=== PATIENT | male | born 1960 | race African-American/Black ===

== ENCOUNTER 2018-04-01 10:09 | Emergency (ER) | payer OTHER ==
[2018-04-01 10:19] VITALS: BP 168/99; PULSE 82; TEMP 98.1; BMI 27.6
[2018-04-01] MEDS ORDERED: CYCLOBENZAPRINE HCL 10 MG TABLET (FP) PO ONE (11:25)
[2018-04-01] MEDS ORDERED: ACETAMINOPHEN 325 MG TABLET (FP) PO ONE (11:25)
--- NOTE | 2018-04-01 11:25 | PDOC ---
History of Present Illness - General Chief Complaint: Pain, Acute Stated Complaint: NECK PAIN Time Seen by Provider: 04/01/18 10:43 History Source: Patient Exam Limitations: No Limitations - History of Present Illness Initial Comments: 04/01/18 11:11 Patient is a 58-year-old male with past medical history of stroke, on blood thinners, who presents to the ER today for neck pain starting yesterday. Patient believes that he slept wrong and now his neck hurts. He states it hurts to touch on either side. She is tried taking Tylenol with minimal relief. Denies fevers, chills, dizziness, lightheadedness, nausea, vomiting and diarrhea. Past History - Travel Traveled outside of the country in the last 30 days: No Close contact w/someone who was outside of country & ill: No - Past Medical History Allergies/Adverse Reactions: Allergies Allergy/AdvReac Type Severity Reaction Status Date / Time No Known Allergies Allergy Verified 04/01/18 11:04 Home Medications: Ambulatory Orders Losartan Potassium 100 mg PO DAILY 06/20/13 Acetaminophen [Tylenol] 650 mg PO Q6H #30 tablet 04/01/18 Aspirin [ASA -] 81 mg PO DAILY 04/01/18 Clopidogrel Bisulfate [Plavix] 75 mg PO DAILY 04/01/18 Cyclobenzaprine HCl [Flexeril -] 10 mg PO HS #10 tablet 04/01/18 Lidocaine 5% Patch [Lidoderm -] 1 patch TP DAILY #7 patch 04/01/18 Lisinopril [Zestril] 40 mg PO DAILY 04/01/18 Nifedipine ER [Procardia Xl -] 90 mg PO DAILY 04/01/18 COPD: No HTN: Yes - Surgical History Cholecystectomy: No - Immunization History Immunization Up to Date: Yes (FLU ) - Suicide/Smoking/Psychosocial Hx Smoking History: Never smoked Have you smoked in the past 12 months: No Information on smoking cessation initiated: No Hx Alcohol Use: No Drug/Substance Use Hx: No Substance Use Type: None Review of Systems - Review of Systems Able to Perform ROS?: Yes Comments:: 04/01/18 11:40 CONSTITUTIONAL: Absent: fever, chills, diaphoresis, generalized weakness, malaise, loss of appetite HEENT: Absent: rhinorrhea, nasal congestion, throat pain, throat swelling, difficulty swallowing, mouth swelling, ear pain, eye pain, visual Changes CARDIOVASCULAR: Absent: chest pain, loss of consciousness, palpitations, irregular heart rate, peripheral edema RESPIRATORY: Absent: cough, shortness of breath, dyspnea with exertion, orthopnea, wheezing, stridor, hemoptysis GASTROINTESTINAL: Absent: abdominal pain, abdominal distension, nausea, vomiting, diarrhea, constipation, melena, hematochezia GENITOURINARY: Absent: dysuria, frequency, urgency, hesitancy, hematuria, flank pain, genital pain MUSCULOSKELETAL: Present: neck pain Absent: myalgia, arthralgia, joint swelling SKIN: Absent: rash, itching, pallor HEMATOLOGIC/IMMUNOLOGIC: Absent: easy bleeding, easy bruising, lymphadenopathy, frequent infections ENDOCRINE: Absent: unexplained weight gain, unexplained weight loss, heat intolerance, cold intolerance NEUROLOGIC: Absent: headache, focal weakness or paresthesias, dizziness, unsteady gait, seizure, mental status changes, bladder or bowel incontinence PSYCHIATRIC: Absent: anxiety, depression, suicidal or homicidal ideation, hallucinations. Is the patient limited Telugu proficient: No *Physical Exam - Vital Signs Last Vital Signs Temp Pulse Resp BP Pulse Ox 98.1 F 82 16 168/99 97 04/01/18 10:16 04/01/18 10:16 04/01/18 10:16 04/01/18 10:16 04/01/18 10:16 - Physical Exam Comments: 04/01/18 11:40 GENERAL: Well developed, well nourished. Awake and alert. No acute distress. HEENT: Normocephalic, atraumatic. PERRLA, EOMI. No conjunctival pallor. Sclera are non- icteric. Moist mucous membranes. Oropharynx is clear. NECK: Supple. Full ROM. No JVD. Carotid pulses 2+ and symmetric, without bruits. No thyromegaly. No lymphadenopathy. MUSCULOSKELETAL TTP of the trapezius muscles b/l. No midline tenderness. Decreased ROM of the neck d/t pain. Normal range of motion at all other joints. No bony deformities or tenderness. No CVA tenderness. EXTREMITIES: No cyanosis. No clubbing. No edema. No calf tenderness. SKIN: Warm and dry. Normal capillary refill. No rashes. No jaundice. NEUROLOGICAL: Alert, awake, appropriate. Cranial nerves 2-12 intact. No deficits to light touch and temperature in face, upper extremities and lower extremities. No motor deficits in the in face, upper extremities and lower extremities. Normoreflexic in the upper and lower extremities. Normal speech. Toes are down- going bilaterally. Moderate Sedation - Procedure Monitoring Vital Signs: Procedure Monitoring Vital Signs Temperature 98.1 F 04/01/18 10:16 Pulse Rate 82 04/01/18 10:16 Respiratory Rate 16 04/01/18 10:16 Blood Pressure 168/99 04/01/18 10:16 O2 Sat by Pulse Oximetry (%) 97 04/01/18 10:16 Medical Decision Making - Medical Decision Making 04/01/17 11:13 Patient is a 58 y/o M with past medical history of stroke on blood thinners, who presents to the ER for one day of neck pain. On exam patient with palpable spasms to the trapezius muscles bilaterally. Patient able to rotate his neck 45 in either direction. Pt is neurologically intact with no deficits. No trauma, patient able to touch his chin to his chest without pain. No numbness and tingling in the extremities. Suspect muscle spasm of the neck. We'll treat with Tylenol and Flexeril and lidocaine patches. Discharge home I discussed the physical exam findings, ancillary test results and final diagnoses with the patient. I answered all of the patient's questions. The patient was satisfied with the care received and felt comfortable with the discharge plan and treatment plan. The Patient agrees to follow up with the primary care physician/specialist within 24-72 hours. Return precautions were given. *DC/Admit/Observation/Transfer Diagnosis at time of Disposition: Neck pain - Discharge Dispostion Disposition: HOME Condition at time of disposition: Stable Decision to Admit order: No - Prescriptions Prescriptions: Acetaminophen [Tylenol] 650 mg PO Q6H #30 tablet Cyclobenzaprine HCl [Flexeril -] 10 mg PO HS #10 tablet Lidocaine 5% Patch [Lidoderm -] 1 patch TP DAILY #7 patch - Referrals Referrals: Turner Gamble MD, [Primary Care Provider] - - Patient Instructions Printed Discharge Instructions: DI for Neck Pain Additional Instructions: You have neck pain most likely due to a spasm Please take the Tylenol 650mg every 4 hours for pain You may take the Flexeril every 8 hours today for the pain. Tomorrow take the medication only at night. Do not drive after taking this medication as it may make you sleepy You may use the lidocaine patches once a day to the neck to help with the pain Warm water compresses may help the pain as well Follow up with your primary care doctor this week Return to the ED for worsening pain, numbness and tingling to the arms or if you have any changes in your symptoms - Post Discharge Activity Forms/Work/School Notes: Back to Work
[2018-04-01] MEDS ORDERED: LIDOCAINE 5% TOPICAL PATCH TP ONE (11:26)
[2018-04-01] MEDS ORDERED: CYCLOBENZAPRINE HCL 10 MG TABLET (FP) ONE (11:30)
[2018-04-01] MEDS ORDERED: LIDOCAINE 5% TOPICAL PATCH ONE (11:30)
[2018-04-01] MEDS ORDERED: ACETAMINOPHEN 325 MG TABLET (FP) ONE (11:30)
[2018-04-01] MEDS ORDERED: LIDOCAINE PATCH REMOVAL MC SCH (22:00)
== END 2018-04-01 11:54 | disposition home or self-care (01) ==
LOC: JERFT 10:09
DX: M54.2 Cervicalgia (principal); I10 Essential (primary) hypertension
CPT/HCPCS: 99281-25

== ENCOUNTER 2018-06-10 15:13 | Inpatient (IN) | payer OTHER ==
--- NOTE | 2018-06-10 15:19 | PDOC ---
Rapid Medical Evaluation Time Seen by Provider: 06/10/18 15:15 Medical Evaluation: Allergies Allergy/AdvReac Type Severity Reaction Status Date / Time No Known Allergies Allergy Verified 04/01/18 11:04 06/10/18 15:15 Pt presents for evaluation of his hypertension. He states he was sent by his PCP for admission for evaluation of his pressure. Endorses memory issues. Denies fevers, chills, headache, n/v/d, lightheadedness, dizziness, shortness of breath, and difficulty breathing Exam; NAD, ambulatory Orders: Labs, EKG, urine, IV insert Pt to proceed to the ED for further evaluation Discharge Disposition - Diagnosis Hypertension Qualifiers: Hypertension type: unspecified Qualified Code(s): I10 - Essential (primary) hypertension - Referrals - Patient Instructions - Post Discharge Activity
[2018-06-10 15:46] LABS: BASO % 0.7 % (0-2.0); EOS % 1.9 % (0-4.5); HEMATOCRIT 47.8 % (35.4-49); HEMOGLOBIN 15.4 GM/dL (11.7-16.9); MCH 29.8 pg (25.7-33.7); MCHC 32.3 g/dl (32.0-35.9); MEAN CELL VOLUME 92.5 fl (80-96); MONO % 5.7 % (3.8-10.2); NEUT % 71.7 % (42.8-82.8); PLATELET COUNT 258 K/MM3 (134-434); RBC 5.17 M/mm3 (4.00-5.60); RDW 14.1 % (11.9-15.9); WHITE BLOOD COUNT 6.3 K/mm3 (4.0-10.0)
[2018-06-10 16:04] LABS: URINE APPEARANCE CLOUDY; URINE BILIRUBIN NEGATIVE (NEGATIVE); URINE COLOR YELLOW; URINE GLUCOSE (UA) NEGATIVE (NEGATIVE); URINE KETONE TRACE (NEGATIVE); URINE LEUK ESTERASE NEGATIVE (NEGATIVE); URINE NITRITE NEGATIVE (NEGATIVE); URINE PROTEIN TRACE (NEGATIVE); URINE UROBILINOGEN 0.2 mg/dL (0.2-1.0)
[2018-06-10 16:08] LABS: INR 1.11 (0.83-1.09); PROTHROMBIN TIME (PATIENT) 13.1 SEC (9.7-13.0)
--- NOTE | 2018-06-10 16:11 | PDOC ---
Attending Attestation - HPI HPI: 06/10/18 17:12 The patient is a 58 year old male, with a significant past medical history of HTN (normally systolic 190s) and CVA (in 2018), who presents to the emergency department with, elevated blood pressure. As per patient, he visited a new c winforms developer Dr. Monroe today at which time his blood pressure was 200s/100s. As per Dr. Monroe, he would like his systolic BP stays below 160. While in the ED, his only complaint is intermittent headaches. He denies any recent fevers, chills, or dizziness. He denies any recent nausea, vomit, diarrhea or constipation. He denies any recent chest pain or shortness of breath. He denies any recent dysuria, frequency, urgency or hematuria. Allergies: NKDA Primary Care Physician: Dr.Thomas Gamble Electro Optics Engineer: Dr. Monroe Neurologist: Dr. Granados - Physicial Exam PE: 06/10/18 17:12 Constitutional: Awake, alert, oriented. No acute distress. Head: Normocephalic. Atraumatic Eyes: PERRL. EOMI. Conjunctivae are not pale. ENT: Mucous membranes are moist and intact. Posterior pharynx without exudates or erythema. Uvula midline. Neck: Supple. Full ROM. No lymphadenopathy. Cardiovascular: Regular rate. Regular rhythm. S1, S2 regular. Distal pulses are 2+ and symmetric. Pulmonary/Chest: No evidence of respiratory distress. Clear to auscultation bilaterally No wheezing, rales or rhonchi. Abdominal: Soft and non-distended. There is no tenderness. No rebound, guarding or rigidity. No organomegaly. No palpable masses. Good bowel sounds. Back: No CVA tenderness. Musculoskeletal: No edema. No cyanosis. No clubbing. Full range of motion in all extremities. No calf tenderness. Radial/pedal pulses are intact and 2+ bilaterally Skin: Skin is warm and dry. No petechiae. No purpura. Neurological: Alert and oriented to person, place, and time. Cranial nerves II -XII are grossly intact. Normal speech. Strength is grossly symmetric. No sensory deficits. Psychiatric: Good eye contact. Normal interaction, affect and behavior. <Haley Kennedy - Last Filed: 06/10/18 17:12> - Medical Decision Making med list from Dr. Granados and Dr. Monroe Lisinopril 20mg vitamin D 125mg nifedipine 60mg barbra aspirin Clopidogrel 75mg metoprolol 100mg atorvastatin 20mg wellbutrin xl 150mg 2 weeks to 300mg 06/10/18 18:40 <Star Garcia - Last Filed: 06/10/18 18:40> - Resident Resident Name: Miguelito Ortiz - ED Attending Attestation I have performed the following: I have examined & evaluated the patient, The case was reviewed & discussed with the resident, I agree w/resident's findings & plan, Exceptions are as noted - Medical Decision Making 06/10/18 16:10 I, Dr. Avelina Menendez, DO, attest that this document has been prepared under my direction and personally reviewed by me in its entirety. I further attest, that it accurately reflects all work, treatment, procedures and medical decision -making performed by me. 06/10/18 16:47 a/p: 58yo male with uncontrolled htn sent by Dr. Monroe for bp 200/195 -pt states intermittent razo -neuro intact, tia hx of in the past- follows with dr. granados -dr. gamble is pmd, sent to dr. monroe for bp control -no other complaints -[facility]- will add trop, though pt denies cp -will send for head ct given razo and elevated bp -pt will need hospitalization for bp control -will monitor and reassess -will start nitropaste for bp control for goal systolic of 160 06/10/18 17:16 baseline cr 1.5, today 1.6 06/10/18 17:20 trop 0.04 06/10/18 18:[address] Monroe- recommends increasing lisinopril to 20 and procardia to 90. will see patient in consult 06/10/18 18:32 no acute new findings on head ct bp 194/93 06/10/18 19:04 resident discussed the case with [facility] who accepts pt to service, covering Dr. Gamble <Avelina Menendez - Last Filed: 06/10/18 19:04> Heart Score/ECG Review - ECG Intrepretation Comment:: 06/10/18 16:18 sinus at 64, lvh, l axis, t wave inversions with st depression lateral leads, abnl ekg, t wave inversions in v6 are old-compared to june 2013 <Avelina Menendez - Last Filed: 06/10/18 19:04> Attestations - Attestations 06/10/18 17:12 Documentation prepared by Haley Kennedy, acting as medical delivery driver for Avelina Menendez DO. <Haley Kennedy - Last Filed: 06/10/18 17:12>
[2018-06-10 16:16] LABS: ALBUMIN 3.5 g/dl (3.4-5.0); ALK PHOS 74 U/L (45-117); ANION GAP 5 MMOL/L (8-16); BILIRUBIN,TOTAL 0.6 mg/dL (0.2-1); BLOOD UREA NITROGEN 26 mg/dL (7-18); CALCIUM 8.7 mg/dL (8.5-10.1); CHLORIDE 108 mmol/L (98-107); CO2 26 mmol/L (21-32); CREATININE 1.6 mg/dL (0.55-1.3); GLUCOSE,RANDOM 89 mg/dL (74-106); MAGNESIUM 2.4 mg/dL (1.8-2.4); PHOSPHOROUS 2.8 mg/dL (2.5-4.9); POTASSIUM 4.6 mmol/L (3.5-5.1); SGOT/AST 24 U/L (15-37); SGPT/ALT 41 U/L (13-61); SODIUM 139 mmol/L (136-145); TOT PROT 7.7 g/dl (6.4-8.2)
[2018-06-10] MEDS ORDERED: NITROGLYCERIN 2% OINTMENT - 1GM PACKET TD ONE ×2 (16:26→16:30)
--- NOTE | 2018-06-10 16:26 | PDOC ---
History of Present Illness - General Chief Complaint: Blood Pressure Problem Stated Complaint: SENT BY PCP/HYPERTENSION Time Seen by Provider: 06/10/18 15:15 History Source: Patient Exam Limitations: No Limitations - History of Present Illness Initial Comments: 58 yo M w a pmh of HTN and CVA in 2018 presents to the ER sent in by Dr. Monroe to be admitted for blood pressure control. The patient denies having symptoms other than a mild on and off headache for the past month. It has not changed in character recently. He was referred to Dr. Monroe from Dr. Pedro whom he was seeing after he had his stroke one year ago. Dr. Monroe called the ER and requested to make sure his systolic BP stays below 160. The patient denies having a severe headache, denies chest pain, SOB, difficulty breathing, blurry vision, back pain, abdominal pain, flank pain, or any other symptoms. Denies recent fevers, chills, or infections. PCP: Turner Gamble Catering Coordinator: Dr. Monroe Neurologist: Dr. Pedro PSH: None reported Allergies: NKA, NKDA Social Hx: Denies smoking, drinking, or other substance usage. Past History - Past Medical History Allergies/Adverse Reactions: Allergies Allergy/AdvReac Type Severity Reaction Status Date / Time No Known Allergies Allergy Verified 06/10/18 18:55 Home Medications: Ambulatory Orders Aspirin [ASA -] 81 mg PO DAILY 06/10/18 Atorvastatin Ca [Lipitor] 20 mg PO HS 06/10/18 Cholecalciferol (Vitamin D3) [Vitamin D3 -] 125 mg PO DAILY 06/10/18 Clopidogrel Bisulfate [Plavix] 75 mg PO DAILY 06/10/18 Lisinopril [Zestril] 20 mg PO DAILY 06/10/18 Metoprolol Succinate [Toprol Xl] 100 mg PO DAILY 06/10/18 Nifedipine [Procardia Xl] 60 mg PO DAILY 06/10/18 COPD: No HTN: Yes - Surgical History Cholecystectomy: No - Immunization History Immunization Up to Date: Yes (FLU ) - Suicide/Smoking/Psychosocial Hx Smoking History: Never smoked Have you smoked in the past 12 months: No Hx Alcohol Use: No Drug/Substance Use Hx: No Substance Use Type: None Review of Systems - Review of Systems Able to Perform ROS?: Yes Comments:: CONSTITUTIONAL: Absent: fever, no chills, no fatigue EYES: Absent: visual changes ENT: Absent: ear pain, no sore throat CARDIOVASCULAR: Absent: chest pain, no palpitations RESPIRATORY: Absent: cough, no SOB GI: Absent: abdominal pain, no nausea, no vomiting, no constipation, no diarrhea GENITOURINARY: Absent: dysuria, no frequency, no hematuria MUSKULOSKELETAL: Absent: back pain, no arthralgia, no myalgia SKIN: Absent: rash NEURO: Present: headache *Physical Exam - Vital Signs Last Vital Signs Temp Pulse Resp BP Pulse Ox 98.3 F 76 18 195/106 H 95 06/10/18 15:16 06/10/18 15:16 06/10/18 15:16 06/10/18 15:16 06/10/18 15:16 - Physical Exam Comments: GENERAL: Well-appearing, well-nourished. No apparent distress. HEENT: Normocephalic, atraumatic. PERRL, EOM intact. CARDIOVASCULAR: Normal S1, S2. Regular rate and rhythm. PULMONARY: No evidence of respiratory distress. Lungs clear to auscultation bilaterally. No wheezing, rales or rhonchi. ABDOMEN: Soft, non-distended, non-tender. EXTREMITIES: Normal ROM in all four extremities. No gross deformities. SKIN: Warm, dry. No rash NEURO: Alert, awake, appropriate. Cranial nerves 2-12 intact. No deficits to light touch in face, upper extremities and lower extremities. No motor deficits in the in face, upper extremities and lower extremities. No pronator drift. Normal speech. Toes are down-going bilaterally. Gait is normal without ataxia. ED Treatment Course - LABORATORY CBC & Chemistry Diagram: 06/10/18 15:27 06/10/18 15:27 - ADDITIONAL ORDERS Additional order review: Laboratory Results 06/10/18 06/10/18 06/10/18 15:50 15:27 15:27 PT with INR 13.10 H INR 1.11 H Sodium 139 Potassium 4.6 Chloride 108 H Carbon Dioxide 26 Anion Gap 5 L BUN 26 H Creatinine 1.6 H Creat Clearance w eGFR 44.94 Random Glucose 89 Calcium 8.7 Phosphorus 2.8 Magnesium 2.4 Total Bilirubin 0.6 AST 24 ALT 41 Alkaline Phosphatase 74 Total Protein 7.7 Albumin 3.5 Urine Color Yellow Urine Appearance Cloudy Urine pH 5.0 Ur Specific Moira 1.026 Urine Protein Trace Urine Glucose (UA) Negative Urine Ketones Trace H Urine Blood Negative Urine Nitrite Negative Urine Bilirubin Negative Urine Urobilinogen 0.2 Ur Leukocyte Esterase Negative 06/10/18 15:27 RBC 5.17 MCV 92.5 MCHC 32.3 RDW 14.1 MPV 8.0 Neutrophils % 71.7 Lymphocytes % 20.0 D Monocytes % 5.7 Eosinophils % 1.9 D Basophils % 0.7 Medical Decision Making - Medical Decision Making 58 yo M w a pmh of HTN and CVA in 2018 presents to the ER sent in by Dr. Monroe to be admitted for blood pressure control. The patient denies having symptoms other than a mild on and off headache for the past month. It has not changed in character recently. He was referred to Dr. Monroe from Dr. Pedro whom he was seeing after he had his stroke one year ago. Dr. Monroe called the ER and requested to make sure his systolic BP stays below 160. The patient denies having a severe headache, denies chest pain, SOB, difficulty breathing, blurry vision, back pain, abdominal pain, flank pain, or any other symptoms. Denies recent fevers, chills, or infections. VS: Hypertensive, otherwise WNL DDx IBNLT: HTN emerg vs urg, CVA/TIA, asymptomatic htn, ACS/AL, Pulm Edema, renal injury. Plan: Labs, CXR, Head CT, Urine, Trop, Nitro paste, Admit. BP still elevated after Nitro paste giving 10 of lisinopril BP still elevated despite lisinopril and nitro paste - Administering labetalol and will admit patient for further control of his hypertensive emergency. *DC/Admit/Observation/Transfer Diagnosis at time of Disposition: Hypertensive urgency, malignant Hypertension Qualifiers: Hypertension type: unspecified Qualified Code(s): I10 - Essential (primary) hypertension - Discharge Dispostion Decision to Admit order: Yes - Referrals - Patient Instructions - Post Discharge Activity
[2018-06-10] MEDS ORDERED: LISINOPRIL 10 MG TABLET (FP) PO ONE (18:34)
[2018-06-10] MEDS ORDERED: LABETALOL HCL 5 MG/1 ML (100MG/20 ML VIAL) IVPUSH ONE (18:36)
[2018-06-10] MEDS ORDERED: LISINOPRIL 5 MG TABLET (FP) ONE (18:40)
[2018-06-10] MEDS ORDERED: LABETALOL HCL 5 MG/1 ML (200MG/40ML VIAL) IVPB ONE (18:40)
--- NOTE | 2018-06-10 20:22 | HP ---
Admitting History and Physical - Primary Care Physician PCP: Turner Gamble MD - Admission Chief Complaint: Uncontrolled BP History of Present Illness: 58 yrs old man H/O uncontrolled HTN, CVA in 2018 jing visited [employer] office for consultation, BP recorded 200/104 with haed ache so transferred to Ed for evaluation, patient denies any double vision, dizziness, nausea, vomiting , abd pain, focal weakness or chest pain, admitted for optimization of BP control and onserve renal functions. 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 Cardiovascular: Yes: HTN - Smoking History Smoking history: Never smoked Have you smoked in the past 12 months: No - Alcohol/Substance Use Hx Alcohol Use: No Home Medications - Allergies Allergies/Adverse Reactions: Allergies Allergy/AdvReac Type Severity Reaction Status Date / Time No Known Allergies Allergy Verified 06/10/18 18:55 - Home Medications Home Medications: Ambulatory Orders Aspirin [ASA -] 81 mg PO DAILY 06/10/18 Atorvastatin Ca [Lipitor] 20 mg PO HS 06/10/18 Cholecalciferol (Vitamin D3) [Vitamin D3 -] 125 mg PO DAILY 06/10/18 Clopidogrel Bisulfate [Plavix] 75 mg PO DAILY 06/10/18 Lisinopril [Zestril] 20 mg PO DAILY 06/10/18 Metoprolol Succinate [Toprol Xl] 100 mg PO DAILY 06/10/18 Nifedipine [Procardia Xl] 60 mg PO DAILY 06/10/18 Family Disease History - Family Disease History Family History: Unremarkable Review of Systems - Review of Systems Constitutional: reports: No Symptoms. denies: Chills, Diaphoresis Eyes: denies: Blind Spots, Blurred Vision, Eye Pain HENT: denies: Difficult Swallowing, Ear Discharge Neck: reports: Pain on Movement. denies: Decreased ROM, Lumps Cardiovascular: denies: Chest Pain, Edema, Palpitations Respiratory: denies: Cough, Exercise Intolerance Gastrointestinal: denies: Abdominal Pain, Bloating, Constipation Genitourinary: denies: Burning, Dysuria Integumentary: denies: Bruising Neurological: reports: Headache. denies: Change in LOC, Change in Speech Endocrine: denies: Excessive Sweating, Flushing, Increased Hunger Psychiatric: reports: Anxiety. denies: Altered Sleep Pattern, Depression, Paranoia, Suicidal Physical Examination Vital Signs: Vital Signs Temperature 98.3 F 06/10/18 15:16 Pulse Rate 60 06/10/18 18:30 Respiratory Rate 18 06/10/18 18:30 Blood Pressure 193/94 H 06/10/18 18:30 O2 Sat by Pulse Oximetry (%) 100 06/10/18 18:30 Constitutional: Yes: Well Nourished, No Distress Eyes: Yes: Conjunctiva Clear, EOM Intact HENT: Yes: Atraumatic, Normocephalic. No: Drooling, Epistaxis Neck: Yes: Supple, Trachea Midline. No: Decreased ROM, Lymphadenopathy Cardiovascular: Yes: Regular Rate and Rhythm, S1, S2. No: JVD, Murmur Respiratory: Yes: Regular, CTA Bilaterally Gastrointestinal: Yes: Normal Bowel Sounds Renal/: No: Bladder Distention, CVA Tenderness - Left Musculoskeletal: No: Back Pain, Joint Stiffness Extremities: No: Calf Tenderness Edema: No Peripheral Pulses WNL: No Peripheral Pulses: Left Doralis Pedis: 1+, Right Dorsalis Pedis: 1+ ...Motor Strength: WNL, LUE, LLE Psychiatric: Yes: Alert, Oriented Labs: CBC,CMP WBC 6.3 K/mm3 (4.0-10.0) 06/10/18 15:27 RBC 5.17 M/mm3 (4.00-5.60) 06/10/18 15:27 Hgb 15.4 GM/dL (11.7-16.9) 06/10/18 15:27 Hct 47.8 % (35.4-49) 06/10/18 15:27 MCV 92.5 fl (80-96) 06/10/18 15:27 MCH 29.8 pg (25.7-33.7) 06/10/18 15:27 MCHC 32.3 g/dl (32.0-35.9) 06/10/18 15:27 RDW 14.1 % (11.9-15.9) 06/10/18 15:27 Plt Count 258 K/MM3 (134-434) 06/10/18 15:27 MPV 8.0 fl (7.5-11.1) 06/10/18 15:27 Absolute Neuts (auto) 4.5 K/mm3 (1.5-8.0) 06/10/18 15:27 Neutrophils % 71.7 % (42.8-82.8) 06/10/18 15:27 Lymphocytes % 20.0 % (8-40) D 06/10/18 15:27 Monocytes % 5.7 % (3.8-10.2) 06/10/18 15:27 Eosinophils % 1.9 % (0-4.5) D 06/10/18 15:27 Basophils % 0.7 % (0-2.0) 06/10/18 15:27 Nucleated RBC % 0 % (0-0) 06/10/18 15:27 Sodium 139 mmol/L (136-145) 06/10/18 15:27 Potassium 4.6 mmol/L (3.5-5.1) 06/10/18 15:27 Chloride 108 mmol/L (98-107) H 06/10/18 15:27 Carbon Dioxide 26 mmol/L (21-32) 06/10/18 15:27 Anion Gap 5 MMOL/L (8-16) L 06/10/18 15:27 BUN 26 mg/dL (7-18) H 06/10/18 15:27 Creatinine 1.6 mg/dL (0.55-1.3) H 06/10/18 15:27 Creat Clearance w eGFR 44.94 (>60) 06/10/18 15:27 Random Glucose 89 mg/dL (74-106) 06/10/18 15:27 Calcium 8.7 mg/dL (8.5-10.1) 06/10/18 15:27 Phosphorus 2.8 mg/dL (2.5-4.9) 06/10/18 15:27 Magnesium 2.4 mg/dL (1.8-2.4) 06/10/18 15:27 Total Bilirubin 0.6 mg/dL (0.2-1) 06/10/18 15:27 AST 24 U/L (15-37) 06/10/18 15:27 ALT 41 U/L (13-61) 06/10/18 15:27 Alkaline Phosphatase 74 U/L (45-117) 06/10/18 15:27 Troponin I 0.04 ng/ml (0.00-0.05) 06/10/18 15:27 Total Protein 7.7 g/dl (6.4-8.2) 06/10/18 15:27 Albumin 3.5 g/dl (3.4-5.0) 06/10/18 15:27 Imaging - Results Chest X-ray: Report Reviewed (Cardiomegaly, no acute changes) Cat Scan: Report Reviewed (Head no acute changes) EKG: Report Reviewed (No acute ST t changes) Problem List - Problems (1) H/O: CVA (cerebrovascular accident) Assessment/Plan: No residual weakness, optimize BP control cont Plavox statin Code(s): Z86.73 - PRSNL HX OF TIA (TIA), AND CEREB INFRC W/O RESID DEFICITS (2) Uncontrolled hypertension Assessment/Plan: Uncontrolled HTN will optimize BP meds increse Nifedipine to 90 mg Lisinopril to 40 mg and add HCTZ , Dr Monroe will F/U, [facility] consider ECHO as out patient. Code(s): I10 - ESSENTIAL (PRIMARY) HYPERTENSION (3) CKD (chronic kidney disease), stage III Assessment/Plan: Due to HTN F/U BMP and U protein Code(s): N18.3 - CHRONIC KIDNEY DISEASE, STAGE 3 (MODERATE)
[2018-06-10] MEDS ORDERED: NIFEdipine E.R. 30 MG TABLET (FP) PO ONE (20:45)
[2018-06-10] MEDS ORDERED: LISINOPRIL 20 MG TABLET (FP) ONE (20:49)
[2018-06-10] MEDS ORDERED: NIFEdipine E.R. 30 MG TABLET (FP) ONE (20:49)
[2018-06-10] MEDS: LISINOPRIL 20 MG TABLET (FP) PO SCH (20:57)
[2018-06-10] MEDS: ATORVASTATIN CA 20 MG TABLET (FP) PO SCH (22:35)
[2018-06-11] VITALS: BMI 28.8
[2018-06-11] MEDS ORDERED: hydrALAZINE HCL 20 MG/ML VIAL IVPUSH ONE (00:58)
--- NOTE | 2018-06-11 01:01 | PN ---
HC Provider Note (SOAP) Subjective: called by nursing at 4w for pt mentioned for HTN 190/96 , repeat manual reading was 220/103 will give hydralysin 10 IV push monitor BP closely if no improvement will need nicardipin drip and ICU evaluation Consider stop welbutrin as it might cause elevation in BP R.O secondary causes for BP
--- NOTE | 2018-06-11 02:37 | PN ---
Progress Note (short form) - Note Progress Note: Patient was admitted yesterday for Hypertensive emergency. Patient was symptomatic with headache. On arrival BP was 195/106 mmHg. Was given Nifedipine , Lisinopril and Labetolol which improved his BP. Patient was then admitted in Tele with continuous blood pressure monitoring. Was called for ICU admission for Uncontrolled blood pressure of 212/103 mmHg. Was given IV Hydralazine 10mg and repeat BP was 180/90 mmHg. Upon my assessment , patient was lying comfortably in bed. Asymptomatic. Denies headache, blurring of vision, numbness, tingling, chest pain, shortness of breath, palpitation, abdominal pain, nausea or vomiting. Requested RN to check BP every hour and to ask the patient if he is symptomatic. Currently, patient is asymptomatic and BP is improving. If it is still elevated can try IV antihypertensives. If despite on trying IV antihypertensives, if his BP is still elevated and requires drip, will reevalute for ICU admission. Case discussed with Dr. Underwood
[2018-06-11 07:38] LABS: BASO % 0.7 % (0-2.0); EOS % 2.2 % (0-4.5); HEMATOCRIT 44.9 % (35.4-49); HEMOGLOBIN 14.8 GM/dL (11.7-16.9); LYMPH % 17.2 % (8-40); MCH 29.9 pg (25.7-33.7); MCHC 32.9 g/dl (32.0-35.9); MEAN CELL VOLUME 90.7 fl (80-96); MONO % 5.8 % (3.8-10.2); NEUT % 74.1 % (42.8-82.8); PLATELET COUNT 235 K/MM3 (134-434); RBC 4.95 M/mm3 (4.00-5.60); RDW 14.3 % (11.9-15.9); WHITE BLOOD COUNT 6.4 K/mm3 (4.0-10.0)
[2018-06-11 08:09] LABS: ANION GAP 7 MMOL/L (8-16); BLOOD UREA NITROGEN 19 mg/dL (7-18); CALCIUM 8.1 mg/dL (8.5-10.1); CHLORIDE 106 mmol/L (98-107); CO2 25 mmol/L (21-32); CREATININE 1.4 mg/dL (0.55-1.3); GLUCOSE,RANDOM 101 mg/dL (74-106); POTASSIUM 3.7 mmol/L (3.5-5.1); SODIUM 138 mmol/L (136-145)
[2018-06-11] MEDS ORDERED: PT OWN MED DRAWER 7, Y5N ONE ×2 (09:30→12:24)
[2018-06-11] MEDS: LISINOPRIL 20 MG TABLET (FP) PO SCH (09:59)
[2018-06-11] MEDS: ASPIRIN 81 MG CHEWABLE TABLETS PO SCH (09:59)
[2018-06-11] MEDS: CLOPIDOGREL BISULFATE 75 MG TABLET (FP) PO SCH (10:00)
[2018-06-11] MEDS ORDERED: NIFEdipine E.R. 90 MG TABLET (FP) PO SCH (10:00)
[2018-06-11] MEDS ORDERED: NIFEdipine E.R 60 MG TABLET (UD) PO SCH (10:00)
[2018-06-11 11:25] LABS: CHOLESTEROL 134 mg/dL (50-200); HDL CHOLESTEROL 46 mg/dL (40-60); TRIGLYCERIDES 127 mg/dL (0-150)
--- NOTE | 2018-06-11 11:35 | CONSULT ---
Consultation: CONSULT REQUEST: Nephrology HISTORY OF PRESENT ILLNESS: 58 yo M w a pmh of HTN and CVA (2018) was sent by Dr. Monroe for blood pressure control. Patient had an elevated blood pressure in the office at 200/ 104 and was told to go to the ER. The patient denies having symptoms other than a mild on and off headache for the past month. It has not changed in character recently. He was referred to Dr. Monroe by Dr. Pedro's office because of abnormal labs. Patient says he's had uncontrolled hypertension for a long time. He says he has never had any kidney issues in the past. The patient denies having a severe headache, denies chest pain, SOB, difficulty breathing, blurry vision, back pain, abdominal pain, flank pain, or any other symptoms. Denies recent fevers, chills, or infections. PCP: Turner Gamble Electronic Prepress Technician: Dr. Monroe Neurologist: Dr. Pedro PSH: None reported Allergies: NKA, NKDA Social Hx: Denies smoking, drinking, or other substance usage. REVIEW OF SYSTEMS: CONSTITUTIONAL: Absent: fever, chills, diaphoresis, generalized weakness, malaise, loss of appetite, weight change HEENT: Absent: rhinorrhea, nasal congestion, throat pain, throat swelling, difficulty swallowing, mouth swelling, ear pain, eye pain, visual changes CARDIOVASCULAR: Absent: chest pain, syncope, palpitations, irregular heart rate, lightheadedness , peripheral edema RESPIRATORY: Absent: cough, shortness of breath, dyspnea with exertion, orthopnea, wheezing, stridor, hemoptysis GASTROINTESTINAL: Absent: abdominal pain, abdominal distension, nausea, vomiting, diarrhea, constipation, melena, hematochezia GENITOURINARY: Absent: dysuria, frequency, urgency, hesitancy, hematuria, flank pain, genital pain MUSCULOSKELETAL: Absent: myalgia, arthralgia, joint swelling, back pain, neck pain SKIN: Absent: rash, itching, pallor NEUROLOGIC: Absent: headache, focal weakness or paresthesias, dizziness, unsteady gait, seizure, mental status changes, bladder or bowel incontinence PHYSICAL EXAMINATION Vital Signs - 24 hr 06/10/18 06/10/18 06/10/18 15:16 18:30 21:00 Temperature 98.3 F Pulse Rate 76 Pulse Rate [ 60 Right Radial] Respiratory 18 18 Rate Blood Pressure 195/106 H Blood Pressure 193/94 H [Right Arm] O2 Sat by Pulse 95 100 96 Oximetry (%) 06/10/18 06/10/18 06/11/18 21:04 22:30 00:00 Temperature 98.4 F Pulse Rate 66 60 Pulse Rate [ 69 Right Radial] Respiratory 18 18 Rate Blood Pressure 189/97 H 190/96 H Blood Pressure 186/92 H [Right Arm] O2 Sat by Pulse 97 100 Oximetry (%) 06/11/18 06/11/18 06/11/18 00:45 00:50 02:00 Temperature 98.3 F Pulse Rate 83 65 72 Pulse Rate [ Right Radial] Respiratory Rate Blood Pressure 199/109 H 212/103 H 183/79 H Blood Pressure [Right Arm] O2 Sat by Pulse Oximetry (%) 06/11/18 06/11/18 06/11/18 03:15 04:15 05:29 Temperature 97.8 F Pulse Rate 68 65 74 Pulse Rate [ Right Radial] Respiratory 18 18 18 Rate Blood Pressure 167/78 163/71 169/89 Blood Pressure [Right Arm] O2 Sat by Pulse Oximetry (%) 06/11/18 06/11/18 06/11/18 06:00 08:31 08:32 Temperature 98 F Pulse Rate 78 76 74 Pulse Rate [ Right Radial] Respiratory 18 18 18 Rate Blood Pressure 187/82 H 168/90 172/78 H Blood Pressure [Right Arm] O2 Sat by Pulse Oximetry (%) GENERAL: Awake, alert, and fully oriented, in no acute distress. HEAD: Normal with no signs of trauma. EYES: Pupils equal, round and reactive to light, extraocular movements intact, sclera anicteric, conjunctiva clear. EARS, NOSE, THROAT: oropharynx clear without exudates. Moist mucous membranes. NECK: Normal range of motion, supple without lymphadenopathy, JVD, or masses. LUNGS: Breath sounds equal, clear to auscultation bilaterally. No wheezes, and no crackles. HEART: Regular rate and rhythm, normal S1 and S2 without murmur, rub or gallop. ABDOMEN: Soft, nontender, not distended, normoactive bowel sounds, no guarding, no rebound, no masses. LOWER EXTREMITIES: 2+ pulses. No peripheral edema. NEUROLOGICAL: Cranial nerves II-XII intact. Normal speech. PSYCHIATRIC: Cooperative. Good eye contact. Appropriate mood and affect. Laboratory Results - last 24 hr 06/10/18 06/10/18 06/10/18 15:27 15:27 15:27 WBC 6.3 RBC 5.17 Hgb 15.4 Hct 47.8 MCV 92.5 MCH 29.8 MCHC 32.3 RDW 14.1 Plt Count 258 MPV 8.0 Absolute Neuts (auto) 4.5 Neutrophils % 71.7 Lymphocytes % 20.0 D Monocytes % 5.7 Eosinophils % 1.9 D Basophils % 0.7 Nucleated RBC % 0 PT with INR 13.10 H INR 1.11 H Sodium 139 Potassium 4.6 Chloride 108 H Carbon Dioxide 26 Anion Gap 5 L BUN 26 H Creatinine 1.6 H Creat Clearance w eGFR 44.94 Random Glucose 89 Calcium 8.7 Phosphorus 2.8 Magnesium 2.4 Total Bilirubin 0.6 AST 24 ALT 41 Alkaline Phosphatase 74 Troponin I 0.04 Total Protein 7.7 Albumin 3.5 Triglycerides Cholesterol Total LDL Cholesterol HDL Cholesterol TSH Urine Color Urine Appearance Urine pH Ur Specific [place] Urine Protein Urine Glucose (UA) Urine Ketones Urine Blood Urine Nitrite Urine Bilirubin Urine Urobilinogen Ur Leukocyte Esterase 06/10/18 06/11/18 06/11/18 15:50 06:50 06:50 WBC 6.4 RBC 4.95 Hgb 14.8 Hct 44.9 MCV 90.7 MCH 29.9 MCHC 32.9 RDW 14.3 Plt Count 235 MPV 8.0 Absolute Neuts (auto) 4.7 Neutrophils % 74.1 Lymphocytes % 17.2 Monocytes % 5.8 Eosinophils % 2.2 Basophils % 0.7 Nucleated RBC % 0 PT with INR INR Sodium 138 Potassium 3.7 Chloride 106 Carbon Dioxide 25 Anion Gap 7 L BUN 19 H Creatinine 1.4 H Creat Clearance w eGFR 52.42 Random Glucose 101 Calcium 8.1 L Phosphorus Magnesium Total Bilirubin AST ALT Alkaline Phosphatase Troponin I Total Protein Albumin Triglycerides 127 Cholesterol 134 Total LDL Cholesterol 71 HDL Cholesterol 46 TSH 1.42 Urine Color Yellow Urine Appearance Cloudy Urine pH 5.0 Ur Specific [place] 1.026 Urine Protein Trace Urine Glucose (UA) Negative Urine Ketones Trace H Urine Blood Negative Urine Nitrite Negative Urine Bilirubin Negative Urine Urobilinogen 0.2 Ur Leukocyte Esterase Negative Active Medications Generic Name Dose Route Start Last Admin Trade Name Freq PRN Reason Stop Dose Admin Aspirin 81 mg 06/11/18 10:00 06/11/18 09:59 Asa - PO 81 mg DAILY SY[facility] Administration Atorvastatin Calcium 20 mg 06/10/18 22:00 06/10/18 22:35 Lipitor - PO 20 mg HS [facility] Administration Bupropion HCl 150 mg 06/11/18 10:00 Wellbutrin Xl - PO DAILY SY[facility] Cholecalciferol 400 unit 06/11/18 10:00 Vitamin D3 - PO DAILY [facility] Clopidogrel Bisulfate 75 mg 06/11/18 10:00 06/11/18 10:00 Plavix - PO 75 mg DAILY SY[facility] Administration Lisinopril 20 mg 06/10/18 20:45 06/11/18 09:59 Prinivil PO 20 mg DAILY SYMONE Administration Metoprolol Succinate 100 mg 06/11/18 10:00 06/11/18 10:00 Toprol Xl - PO 100 mg DAILY SYMONE Administration Nifedipine 90 mg 06/11/18 10:00 06/11/18 10:00 Procardia Xl - PO 90 mg DAILY SYMONE Administration ASSESSMENT/PLAN: 58 yo M w a pmh of HTN and CVA (2017) 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 Thank you for this consultative opportunity. Visit type - Emergency Visit Emergency Visit: Yes ED Registration Date: 06/11/18 Care time: The patient presented to the Emergency Department on the above date and was hospitalized for further evaluation of their emergent condition. - New Patient This patient is new to me today: Yes Date on this admission: 06/11/18 - Critical Care Critical Care patient: No
--- NOTE | 2018-06-11 11:49 | EKG ---
Test Reason : Blood Pressure : / mmHG Vent. Rate : 064 BPM Atrial Rate : 064 BPM P-R Int : 192 ms QRS Dur : 110 ms QT Int : 448 ms P-R-T Axes : 065 -44 -33 degrees QTc Int : 462 ms NORMAL SINUS RHYTHM POSSIBLE LEFT ATRIAL ENLARGEMENT LEFT AXIS DEVIATION LEFT VENTRICULAR HYPERTROPHY T WAVE ABNORMALITY, CONSIDER LATERAL ISCHEMIA PROLONGED QT ABNORMAL ECG WHEN COMPARED WITH ECG OF 20-JUN-2013 23:09, T WAVE INVERSION MORE EVIDENT IN LATERAL LEADS Confirmed by DANY FRAZIER MD ([id number]) on 06/11/2018 11:49:07 AM Referred By: Confirmed By:DANY FRAZIER MD
[2018-06-11] MEDS: CHOLECALCIFEROL (VIT D3) 400 UNIT (10 MCG) TABLET PO SCH (12:29)
--- NOTE | 2018-06-11 12:29 | PN ---
Progress Note, Physician Chief Complaint: patient admitted for elevated BP overnight events noted got iv hydralazine and iv labetolol as well - Current Medication List Current Medications: Active Medications Aspirin (Asa -) 81 mg PO DAILY [facility] Last Admin: 06/11/18 09:59 Dose: 81 mg Atorvastatin Calcium (Lipitor -) 20 mg PO HS [facility] Last Admin: 06/10/18 22:35 Dose: 20 mg Bupropion HCl (Wellbutrin Xl -) 150 mg PO DAILY [facility] Cholecalciferol (Vitamin D3 -) 400 unit PO DAILY [facility] Clopidogrel Bisulfate (Plavix -) 75 mg PO DAILY [facility] Last Admin: 06/11/18 10:00 Dose: 75 mg Hydralazine HCl (Apresoline -) 10 mg PO TID [facility] Lisinopril (Prinivil) 20 mg PO DAILY [facility] Last Admin: 06/11/18 09:59 Dose: 20 mg Metoprolol Succinate (Toprol Xl -) 100 mg PO DAILY [facility] Last Admin: 06/11/18 10:00 Dose: 100 mg Nifedipine (Procardia Xl -) 90 mg PO DAILY [facility] Last Admin: 06/11/18 10:00 Dose: 90 mg - Objective Vital Signs: Vital Signs Temperature 98 F 06/11/18 08:31 Pulse Rate 74 06/11/18 08:32 Respiratory Rate 18 06/11/18 08:32 Blood Pressure 172/78 H 06/11/18 08:32 O2 Sat by Pulse Oximetry (%) 100 06/10/18 22:30 Constitutional: Yes: Calm Cardiovascular: Yes: Regular Rate and Rhythm, S1, S2 Respiratory: Yes: CTA Bilaterally Labs: CBC, BMP 06/11/18 06:50 06/11/18 06:50 INR, PTT INR 1.11 (0.83-1.09) H 06/10/18 15:27 Problem List - Problems (1) CKD (chronic kidney disease), stage III Assessment/Plan: renal sono renal consult Code(s): N18.3 - CHRONIC KIDNEY DISEASE, STAGE 3 (MODERATE) (2) Hypertension Assessment/Plan: lisinopril metoprolol hydralazine procardia Code(s): I10 - ESSENTIAL (PRIMARY) HYPERTENSION Qualifiers: Hypertension type: unspecified Qualified Code(s): I10 - Essential (primary ) hypertension
--- NOTE | 2018-06-11 12:36 | ECHO ---
Name: MANAN BAIRD Exam:Adult Echocardiogram Study Date: 06/11/2018 10:21 AM Age: 58 yrs Reason For Study: SYNCOPE Height: 72 in Weight: 217 lb BSA: 2.2 m2 MMode/2D Measurements & Calculations IVSd: 1.3 cm Ao root diam: 3.0 cm LVIDd: 5.2 cm LA dimension: 3.8 cm LVIDs: 3.8 cm LVPWd: 1.4 cm EDV(Teich): 132.3 ml LVOT diam: 2.1 cm ESV(Teich): 63.9 ml Doppler Measurements & Calculations MV E max derrick: 45.9 cm/sec Ao V2 max: 134.2 cm/sec MV A max derrick: 66.6 cm/sec Ao max P.2 mmHg MV E/A: 0.69 Ao V2 mean: 100.9 cm/sec MV dec time: 0.26 sec Ao mean P.4 mmHg Ao V2 VTI: 30.5 cm JOSETTE(I,D): 1.5 cm2 JOSETTE(V,D): 1.8 cm2 LV V1 max P.9 mmHg SV(LVOT): 45.8 ml LV V1 mean P.93 mmHg LV V1 max: 69.7 cm/sec LV V1 mean: 44.6 cm/sec LV V1 VTI: 13.3 cm Med Peak E' Derrick: 3.9 cm/sec Med E/e': 11.6 Lat Peak E' Derrick: 2.7 cm/sec Lat E/e': 16.7 Procedure A complete two-dimensional transthoracic echocardiogram was performed (2D, M-mode, Doppler and color flow Doppler). The study was technically difficult with many images being suboptimal in quality. Left Ventricle There is mild concentric left ventricular hypertrophy. The left ventricular ejection fraction is norm al. Ejection Fraction = 55-60%. The left ventricular wall motion is normal. Right Ventricle The right ventricle is normal in size and function. Atria Normal left and right atrial size and function. Mitral Valve There is no mitral regurgitation noted. Tricuspid Valve There is trace tricuspid regurgitation. There was insufficient TR detected to calculate RV systolic p ressure. Aortic Valve No hemodynamically significant valvular aortic stenosis. No aortic regurgitation is present. Pulmonic Valve The pulmonic valve is not well visualized. Great Vessels The aortic root is normal size. Pericardium/Pleura There is no pericardial effusion. Interpretation Summary The study was technically difficult with many images being suboptimal in quality. There is mild concentric left ventricular hypertrophy. The left ventricular ejection fraction is normal. The right ventricle is normal in size and function. There is trace tricuspid regurgitation. MD Audie Vigil 06/11/2018 12:35 PM
[2018-06-11 12:45] LABS: RATIO URIN PROTEIN/URIN CREAT 0.13 MG/DL
[2018-06-11] MEDS ORDERED: hydrALAZINE HCL 10 MG TABLET PO SCH (14:00)
--- NOTE | 2018-06-11 14:09 | CON.CARD ---
Consult Consult Specialty:: Cardiology Referred by:: Dr. Villareal Reason for Consultation:: Severe hypertension - History of Present Illness Chief Complaint: Poorly controlled high BP History of Present Illness: 58 year-old man with a PMhx of poorly controlled HTN and CVA in 2018 admitted for severe hypertension. The patient was seen in his physician ophthalmologist's office 06/10/18 when he was found to have severe hypertension 200/104. He had headache at that time. He has no history of CAD, LA or CHF. He denies chest pain, SOB, palpitation, dizziness, syncope or near syncope. His baseline exercise tolerance is good without exertional chest pain or SOB. CT head 06/10/18: Small and chronic right basal gangalia and left pontine infarcts. CXR clear lungs. Renal function is mildly impaired. ECG 06/10/18: Sinus rhythm at 64 bpm. LVH, LAD. Biphasic T in V5 and inversion with ST depression in V6. Echo 06/10/18: Mild concentric LVH with normal systolic function. LVEF = 55-60%. Normal RV. Normal LA and RA. No significant valvular abnormality. 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 Cardio/Vascular: Yes: HTN - Alcohol/Substance Use Hx Alcohol Use: No - Smoking History Smoking history: Never smoked Have you smoked in the past 12 months: No Home Medications - Allergies Allergies/Adverse Reactions: Allergies Allergy/AdvReac Type Severity Reaction Status Date / Time No Known Allergies Allergy Verified 06/10/18 18:55 - Home Medications Home Medications: Ambulatory Orders Aspirin [ASA -] 81 mg PO DAILY 06/10/18 Atorvastatin Ca [Lipitor] 20 mg PO HS 06/10/18 Cholecalciferol (Vitamin D3) [Vitamin D3 -] 125 mg PO DAILY 06/10/18 Clopidogrel Bisulfate [Plavix] 75 mg PO DAILY 06/10/18 Lisinopril [Zestril] 20 mg PO DAILY 06/10/18 Metoprolol Succinate [Toprol Xl] 100 mg PO DAILY 06/10/18 Nifedipine [Procardia Xl] 60 mg PO DAILY 06/10/18 Review of Systems - Review of Systems Neurological: reports: Headache Vital Signs: Vital Signs Temperature 98 F 06/11/18 08:31 Pulse Rate 74 06/11/18 08:32 Respiratory Rate 18 06/11/18 08:32 Blood Pressure 172/78 H 06/11/18 08:32 O2 Sat by Pulse Oximetry (%) 100 06/11/18 09:00 General: Well developed. Well nourished. No acute distress. Head: Normocephalic. Atraumatic, Eyes: PERRLA, EOMI. Sclerae anicteric. Conjunctivae clear. Neck: Supple. No JVD. No bruits. Heart: Normal S1, S2: Regular rhythm and rate. No murmur. No gallop or rub. Lungs: Symmetrical air entry. Clear to auscultation. No crackles. No wheezing or rhonchi. Abdomen: Soft. Bowel sound positive. Non tender. No masses. Extremities: 1+ edema. No clubbing or cyanosis. PD 2+, equal bilaterally. Neuro: Intact, no focal findings. AAO X3. - Other Data Labs, Other Data: CBC, BMP 06/11/18 06:50 06/11/18 06:50 INR, PTT INR 1.11 (0.83-1.09) H 06/10/18 15:27 Troponin, BNP 06/10/18 15:27 Troponin I 0.04 Troponin, BNP 06/10/18 15:27 Troponin I 0.04 Assessment/Plan 58 year-old man with a PMhx of poorly controlled HTN and CVA in 2018 admitted for severe hypertension. CT head 06/10/18: Small and chronic right basal gangalia and left pontine infarcts. CXR clear lungs. Renal function is mildly impaired. ECG 06/10/18: Sinus rhythm at 64 bpm. LVH, LAD. Biphasic T in V5 and inversion with ST depression in V6. Echo 06/10/18: Mild concentric LVH with normal systolic function. LVEF = 55-60%. Normal RV. Normal LA and RA. No significant valvular abnormality. Severe hypertension: 1) Increase Metoprolol succinate to 200 mg daily. 2) Change Lisinopril to Valsartan-HCTZ 320-25 mg daily. 3) Increase Nifedipine to 60 mg BID. 4) Will consider add spironolactone or clonidine if his BP remains elevated after the aboves. We will follow the patient.
--- NOTE | 2018-06-11 14:40 | PN ---
Teaching Attending Note Name of Resident: Markus Almeida (Nephrology) ATTENDING PHYSICIAN STATEMENT I saw and evaluated the patient. I reviewed the resident's note and discussed the case with the resident. I agree with the resident's findings and plan as documented. Renal Pt is a 58 year old male with pmhx of CKD, CVA and HTN who presented to my office yesterday for evaluation of htn and elevated creatinine. He was found to be very hypertensive and I sent him in to the ER for treatment. After adjusting his meds and controlling his bp he says he feels better today. He is more interactive than he was in the office. He denies chest pain. pmhx cva htn ckd nkda family hx htn ros denies social hx denies Laboratory Tests 06/10/18 06/10/18 06/10/18 15:27 15:27 15:50 Hgb 15.4 Creatinine 1.6 H Urine Protein Trace Urine Blood Negative Protein/Creatinin Ratio 06/11/18 06/11/18 06/11/18 06:50 06:50 12:00 Hgb 14.8 Creatinine 1.4 H Urine Protein Urine Blood Protein/Creatinin Ratio 0.130 Current Medications Generic Name Dose Route Start Last Admin Trade Name Freq PRN Reason Stop Dose Admin Aspirin 81 mg 06/11/18 10:00 06/11/18 09:59 Asa - PO 81 mg DAILY [facility] Administration Atorvastatin Calcium 20 mg 06/10/18 22:00 06/10/18 22:35 Lipitor - PO 20 mg HS SYMONE Administration Bupropion HCl 150 mg 06/11/18 10:00 06/11/18 12:29 Wellbutrin Xl - PO 150 mg DAILY [facility] Administration Cholecalciferol 400 unit 06/11/18 10:00 06/11/18 12:29 Vitamin D3 - PO 400 unit DAILY [facility]MONE Administration Clopidogrel Bisulfate 75 mg 06/11/18 10:00 06/11/18 10:00 Plavix - PO 75 mg DAILY [facility]MONE Administration Lisinopril 20 mg 06/10/18 20:45 06/11/18 09:59 Prinivil PO 20 mg DAILY [facility]MONE Administration Metoprolol Succinate 100 mg 06/11/18 10:00 06/11/18 10:00 Toprol Xl - PO 100 mg DAILY SYMONE Administration Nifedipine 90 mg 06/11/18 10:00 06/11/18 10:00 Procardia Xl - PO 90 mg DAILY SYMONE Administration cardio s1s2 reg pulm clear GI soft ext neg edema neuro awake and alert circ pos pulses Impression 1. Hypensive urgency 2. htn 3. hx cva 4. CKD 5. HLD Plan - cont to monitor bp on current regiment - cardio eval pending - echo report reviewed - follow renal ultrasound - htn can explain renal findings - renal workup to be completes as outpt - discussed with medical team Dr Monroe
[2018-06-11 15:17] LABS: URINE APPEARANCE CLEAR; URINE BILIRUBIN NEGATIVE (NEGATIVE); URINE COLOR YELLOW; URINE GLUCOSE (UA) NEGATIVE (NEGATIVE); URINE KETONE NEGATIVE (NEGATIVE); URINE LEUK ESTERASE NEGATIVE (NEGATIVE); URINE NITRITE NEGATIVE (NEGATIVE); URINE PROTEIN NEGATIVE (NEGATIVE); URINE UROBILINOGEN 0.2 mg/dL (0.2-1.0)
[2018-06-11] MEDS: HYDROCHLOROTHIAZIDE 25 MG TABLET (FP) PO SCH (17:44)
[2018-06-11] MEDS: ATORVASTATIN CA 20 MG TABLET (FP) PO SCH (22:38)
[2018-06-11] MEDS: NIFEdipine E.R 60 MG TABLET (UD) PO SCH (22:38)
[2018-06-12 04:24] VITALS: TEMP 98
[2018-06-12 06:25] LABS: BASO % 0.8 % (0-2.0); EOS % 3.1 % (0-4.5); HEMATOCRIT 45.8 % (35.4-49); HEMOGLOBIN 15.2 GM/dL (11.7-16.9); MCH 30.1 pg (25.7-33.7); MCHC 33.2 g/dl (32.0-35.9); MEAN CELL VOLUME 90.8 fl (80-96); MEAN PLT VOLUME 7.9 fl (7.5-11.1); MONO % 6.9 % (3.8-10.2); NEUT % 66.2 % (42.8-82.8); PLATELET COUNT 243 K/MM3 (134-434); RBC 5.05 M/mm3 (4.00-5.60); RDW 14.3 % (11.9-15.9); WHITE BLOOD COUNT 7.4 K/mm3 (4.0-10.0)
[2018-06-12 06:52] LABS: ALBUMIN 3.3 g/dl (3.4-5.0); ALK PHOS 74 U/L (45-117); ANION GAP 10 MMOL/L (8-16); BILIRUBIN,TOTAL 0.8 mg/dL (0.2-1); BLOOD UREA NITROGEN 22 mg/dL (7-18); CALCIUM 8.6 mg/dL (8.5-10.1); CHLORIDE 102 mmol/L (98-107); CO2 25 mmol/L (21-32); CREATININE 1.6 mg/dL (0.55-1.3); GLUCOSE,RANDOM 99 mg/dL (74-106); POTASSIUM 3.6 mmol/L (3.5-5.1); SGOT/AST 13 U/L (15-37); SGPT/ALT 27 U/L (13-61); SODIUM 136 mmol/L (136-145)
[2018-06-12] MEDS ORDERED: PT OWN MED DRAWER 7, Y5N ONE (09:43)
[2018-06-12] MEDS: CLOPIDOGREL BISULFATE 75 MG TABLET (FP) PO SCH (09:48)
[2018-06-12] MEDS: ASPIRIN 81 MG CHEWABLE TABLETS PO SCH (09:49)
[2018-06-12] MEDS: NIFEdipine E.R 60 MG TABLET (UD) PO SCH (09:49)
[2018-06-12] MEDS: HYDROCHLOROTHIAZIDE 25 MG TABLET (FP) PO SCH (09:49)
[2018-06-12] MEDS: CHOLECALCIFEROL (VIT D3) 400 UNIT (10 MCG) TABLET PO SCH (09:51)
[2018-06-12] MEDS ORDERED: VALSARTAN 160 MG TABLET (UD) PO SCH (10:00)
[2018-06-12 12:06] VITALS: BP 146/86; PULSE 68
--- NOTE | 2018-06-12 12:22 | DS ---
Physical Examination Vital Signs: Vital Signs Temperature 98 F 06/12/18 08:18 Pulse Rate 68 06/12/18 12:05 Respiratory Rate 18 06/12/18 12:05 Blood Pressure 146/86 06/12/18 12:05 O2 Sat by Pulse Oximetry (%) 97 06/11/18 21:00 Constitutional: Yes: Calm Cardiovascular: Yes: Regular Rate and Rhythm, S1, S2 Respiratory: Yes: CTA Bilaterally Gastrointestinal: Yes: Normal Bowel Sounds, Soft Edema: No Neurological: Yes: Alert, Oriented Labs: CBC, BMP 06/12/18 05:30 06/12/18 05:30 Discharge Summary Reason For Visit: MALIGNANT HYPERTENSIVE URGENCY Current Active Problems CKD (chronic kidney disease), stage III (Acute) H/O: CVA (cerebrovascular accident) (Acute) Hypertension (Acute) Hypertensive urgency, malignant (Acute) Uncontrolled hypertension (Acute) Other Procedures: echo left ventricle hypertrophy and noral ejectin fractoin. renal sono chronic [facility] disease Hospital Course: PCP: Turner Gamble MD - Admission Chief Complaint: Uncontrolled BP History of Present Illness: 58 yrs old man H/O uncontrolled HTN, CVA in 2018 tody visited [employer] office for consultation, BP recorded 200/104 with haed ache so transferred to Ed for evaluation, patient denies any double vision, dizziness, nausea, vomiting , abd pain, focal weakness or chest pain, admitted for optimization of BP control and onserve renal functions. patient admitted to telemetry floor medications adjusted coreg increased and metoprolol increased as well nifedipine dose increased Condition: Improved - Instructions Referrals: Turner Gamble MD, MD [Staff Physician] - Raúl Monroe MD [Staff Physician] - Disposition: HOME - Home Medications Comprehensive Discharge Medication List: Ambulatory Orders Aspirin [ASA -] 81 mg PO DAILY 06/10/18 Atorvastatin Ca [Lipitor] 20 mg PO HS 06/10/18 Cholecalciferol (Vitamin D3) [Vitamin D3 -] 125 mg PO DAILY 06/10/18 Clopidogrel Bisulfate [Plavix] 75 mg PO DAILY 06/10/18 Lisinopril [Zestril] 20 mg PO DAILY 06/10/18 Metoprolol Succinate [Toprol Xl] 100 mg PO DAILY 06/10/18 Nifedipine [Procardia Xl] 60 mg PO DAILY 06/10/18
--- NOTE | 2018-06-12 13:28 | PN ---
Progress Note (short form) - Note Progress Note: patient Mr Umberto Betancourt was admitted at [facility] from 06/10 to for uncontrolled Blood pressure patient to see his primary care doctor next week Problem List - Problems (1) CKD (chronic kidney disease), stage III Code(s): N18.3 - CHRONIC KIDNEY DISEASE, STAGE 3 (MODERATE) (2) Hypertension Code(s): I10 - ESSENTIAL (PRIMARY) HYPERTENSION Qualifiers: Hypertension type: unspecified Qualified Code(s): I10 - Essential (primary ) hypertension
--- NOTE | 2018-06-12 13:45 | PN ---
Progress Note, Physician History of Present Illness: Pt seen and examined at bedside. He feels better. He is being discharged today. - Current Medication List Current Medications: Active Medications Aspirin (Asa -) 81 mg PO DAILY [facility] Last Admin: 06/12/18 09:49 Dose: 81 mg Atorvastatin Calcium (Lipitor -) 20 mg PO HS [facility] Last Admin: 06/11/18 22:38 Dose: 20 mg Bupropion HCl (Wellbutrin Xl -) 150 mg PO DAILY [facility] Last Admin: 06/12/18 09:50 Dose: 150 mg Cholecalciferol (Vitamin D3 -) 400 unit PO DAILY [facility] Last Admin: 06/12/18 09:51 Dose: 400 unit Clopidogrel Bisulfate (Plavix -) 75 mg PO DAILY [facility] Last Admin: 06/12/18 09:48 Dose: 75 mg Hydrochlorothiazide (Hctz -) 25 mg PO DAILY [facility] Last Admin: 06/12/18 09:49 Dose: 25 mg Metoprolol Succinate (Toprol Xl -) 200 mg PO DAILY [facility] Last Admin: 06/12/18 09:48 Dose: 200 mg Nifedipine (Procardia Xl -) 60 mg PO BID [facility] Last Admin: 06/12/18 09:49 Dose: 60 mg Valsartan (Diovan -) 320 mg PO DAILY [facility] Last Admin: 06/12/18 09:50 Dose: 320 mg - Objective Vital Signs: Vital Signs Temperature 98 F 06/12/18 08:18 Pulse Rate 68 06/12/18 12:05 Respiratory Rate 18 06/12/18 12:05 Blood Pressure 146/86 06/12/18 12:05 O2 Sat by Pulse Oximetry (%) 97 06/12/18 09:00 Constitutional: Yes: Calm Eyes: Yes: Conjunctiva Clear HENT: Yes: Atraumatic Neck: Yes: Supple Cardiovascular: Yes: S1, S2 Respiratory: Yes: CTA Bilaterally Gastrointestinal: Yes: Soft Genitourinary: Yes: WNL Musculoskeletal: Yes: WNL Edema: No Neurological: Yes: Oriented Psychiatric: Yes: Oriented Labs: CBC, BMP 06/12/18 05:30 06/12/18 05:30 INR, PTT INR 1.11 (0.83-1.09) H 06/10/18 15:27 Assessment/Plan Current Medications Generic Name Dose Route Start Last Admin Trade Name Freq PRN Reason Stop Dose Admin Aspirin 81 mg 06/11/18 10:00 06/12/18 09:49 Asa - PO 81 mg DAILY SYMONE Administration Atorvastatin Calcium 20 mg 06/10/18 22:00 06/11/18 22:38 Lipitor - PO 20 mg HS SYMONE Administration Bupropion HCl 150 mg 06/11/18 10:00 06/12/18 09:50 Wellbutrin Xl - PO 150 mg DAILY SYMONE Administration Cholecalciferol 400 unit 06/11/18 10:00 06/12/18 09:51 Vitamin D3 - PO 400 unit DAILY SYMONE Administration Clopidogrel Bisulfate 75 mg 06/11/18 10:00 06/12/18 09:48 Plavix - PO 75 mg DAILY SYMONE Administration Hydrochlorothiazide 25 mg 06/11/18 17:45 06/12/18 09:49 Hctz - PO 25 mg DAILY SYMONE Administration Metoprolol Succinate 200 mg 06/11/18 17:30 06/12/18 09:48 Toprol Xl - PO 200 mg DAILY SYMONE Administration Nifedipine 60 mg 06/11/18 22:00 06/12/18 09:49 Procardia Xl - PO 60 mg BID SYMONE Administration Valsartan 320 mg 06/12/18 10:00 06/12/18 09:50 Diovan - PO 320 mg DAILY SYMONE Administration Impression 1. Hypertensive urgency 2. htn 3. hx cva 4. CKD 5. 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
== END 2018-06-12 14:14 | disposition home or self-care (01) | DRG 305 ==
LOC: JER 15:13 → JERBED 18:53 → J4W 21:59 → OBSVTOIN 06-11 10:21
PROVIDERS: ADMIT Family Medicine; ATTEND Family Medicine
DX: I16.0 Hypertensive urgency (principal); I12.9 Hypertensive chronic kidney disease with stage 1 through stage 4 chronic kidney disease, or unspecified chronic kidney disease; N18.3 Chronic kidney disease, stage 3 (moderate); Z86.73 Personal history of transient ischemic attack (TIA), and cerebral infarction without residual deficits
CPT/HCPCS: 36415; 70450-TC; 71045-TC-FY; 76775-TC; 76856-TC; 80048; 80053; 80061; 81003; 82570; 83721; 83735; 84100; 84156; 84443; 84484; 85025; 85610; 87086; 93005; 93010; 93306-TC; 99284-25; G0378

== ENCOUNTER 2018-12-09 08:12 | Inpatient (IN) | payer OTHER ==
--- NOTE | 2018-12-09 08:56 | PDOC ---
Documentation entered by Gayle Hurtado SCRIBE, acting as scribe for Avelina Menendez DO. Avelina Menendez DO: This documentation has been prepared by the Genesis tamayo Adrianna, SCRIBE, under my direction and personally reviewed by me in its entirety. I confirm that the documentation accurately reflects all work, treatment, procedures, and medical decision making performed by me. History of Present Illness - General Chief Complaint: CVA/TIA Stated Complaint: DIZZINESS Time Seen by Provider: 12/09/18 08:23 - History of Present Illness Initial Comments: The patient is a 58 year old male, with a significant PMH of CVA (last year with some residual memory loss), HTN, HLD, pre-diabetic, and CKD, who presents to the ED for evaluation of elevated blood pressure since earlier this morning. Patient is a poor historian, and sons at bedside provide history. Patient sons note he took all of his medications this morning (including Hydralazine and Metoprolol) 1.5 hour prior to arrival. His BP has remained elevated, and he reported feeling dizzy (denies room-spinning or feeling of loosing consciousness , notes he feels off). He denies any recent changes in his medications, or missing a medication dose. Patient was seen by his PCP yesterday, and his sons note his BP was normal yesterday (~130s systolic). He denies any other acute complaints. Denies fever, chills, chest pain, SOB, diarrhea, constipation, dysuria, hematuria, headache, numbness, tingling, vision changes, or blurred vision. Allergies: NKA, NKDA Surgical History: None reported Social History: Denies EtOH, tobacco, or illicit drug use PCP: Dr. Villareal Neurologist: Dr. Granados Mobile Sales Consultant: Dr. Monroe Jewel Waxer: Dr. Louise Past History - Past Medical History Allergies/Adverse Reactions: Allergies Allergy/AdvReac Type Severity Reaction Status Date / Time No Known Allergies Allergy Verified 12/09/18 08:25 Home Medications: Ambulatory Orders Aspirin [ASA -] 81 mg PO DAILY 06/10/18 Atorvastatin Ca [Lipitor] 20 mg PO HS 06/10/18 Cholecalciferol (Vitamin D3) [Vitamin D -] 125 mg PO DAILY 06/10/18 Clopidogrel Bisulfate [Plavix] 75 mg PO DAILY 06/10/18 Bupropion HCl [Wellbutrin Xl -] 150 mg PO DAILY #30 tab.sr.24h MDD 1 06/12/18 Hydrochlorothiazide [Hctz -] 25 mg PO DAILY #30 tablet MDD 1 06/12/18 Metoprolol Succinate [Toprol XL -] 200 mg PO DAILY #60 tab.sr.24h MDD 2 Nifedipine ER [Procardia XL -] 60 mg PO BID #60 tab.er.24 MDD 2 06/12/18 Valsartan [Diovan] 320 mg PO DAILY #60 tablet MDD 2 06/12/18 CVA: Yes (2018) COPD: No HTN: Yes - Surgical History Cholecystectomy: No - Immunization History Immunization Up to Date: Yes (FLU ) - Psycho Social/Smoking Cessation Hx Smoking History: Never smoked Have you smoked in the past 12 months: No Hx Alcohol Use: No Drug/Substance Use Hx: No Substance Use Type: None Hx Substance Use Treatment: No Review of Systems - Review of Systems Comments:: GENERAL/CONSTITUTIONAL: +Hypertensive. No fever or chills. No weakness. HEAD, EYES, EARS, NOSE AND THROAT: No change in vision. No ear pain or discharge. No sore throat. GASTROINTESTINAL: No nausea, vomiting, diarrhea or constipation. GENITOURINARY: No dysuria, frequency, or change in urination. CARDIOVASCULAR: No chest pain or shortness of breath. RESPIRATORY: No cough, wheezing, or hemoptysis. MUSCULOSKELETAL: No joint or muscle swelling or pain. No neck or back pain. SKIN: No rash NEUROLOGIC: +Dizziness (feeling off). No headache, vertigo, loss of consciousness, or change in strength/sensation. ENDOCRINE: No increased thirst. No abnormal weight change. HEMATOLOGIC/LYMPHATIC: No anemia, easy bleeding, or history of blood clots. ALLERGIC/IMMUNOLOGIC: No hives or skin allergy. *Physical Exam - Vital Signs Last Vital Signs Temp Pulse Resp BP Pulse Ox 98.6 F 69 16 190/119 H 97 12/09/18 08:18 12/09/18 08:18 12/09/18 08:18 12/09/18 08:18 12/09/18 08:18 - Physical Exam Comments: Constitutional: +Hypertensive. Awake, alert, oriented. No acute distress. Head: Normocephalic. Atraumatic Eyes: +Pupils are 2 and reactive bilaterally. EOMI. Conjunctivae are not pale. ENT: Mucous membranes are moist and intact. Posterior pharynx without exudates or erythema. Uvula midline. Neck: Supple. Full ROM. No lymphadenopathy. Cardiovascular: Regular rate. Regular rhythm. S1, S2 regular. Distal pulses are 2+ and symmetric. Pulmonary/Chest: No evidence of respiratory distress. Clear to auscultation bilaterally No wheezing, rales or rhonchi. Abdominal: Soft and non-distended. There is no tenderness. No rebound, guarding or rigidity. No organomegaly. No palpable masses. Good bowel sounds. Back: No CVA tenderness. Musculoskeletal: No edema. No cyanosis. No clubbing. Full range of motion in all extremities. Nocalf tenderness. Radial/pedal pulses are intact and 2+ bilaterally Skin: Skin is warm and dry. No petechiae. No purpura. Neurological: Alert and oriented to person, place, and time. Cranial nerves II- XII are grossly intact. Strength is grossly symmetric. No deficits to light touch and temperature in face, upper extremities and lower extremities. No motor deficits in the in face, upper extremities and lower extremities. Normoreflexic in the upper and lower extremities. Normal speech. Toes are down- going bilaterally. Gait is normal without ataxia. Psychiatric: Good eye contact. Normal interaction, affect and behavior. Heart Score/ECG Review - ECG Intrepretation Comment:: 12/09/18 09:16 sinus at 67, lvh, 1st degree av block, L axis, poor r wave progression, t wave inversins inferior leads, and v6, abnl ekg 12/09/18 09:18 ekg is unchanged from may 2018 ED Treatment Course - LABORATORY CBC & Chemistry Diagram: 12/09/18 08:51 12/09/18 08:51 - RADIOLOGY Radiology Studies Ordered: Category Date Time Status HEAD CT WITHOUT CONTRAST [CT] Stat CT Scan 12/09/18 08:35 Ordered CHEST X-RAY PORTABLE* [RAD] Stat Radiology 12/09/18 08:35 Ordered Radiograph Interpretation: EXAM#: TYPE/EXAM: RESULT: [id number] RAD/CHEST X-RAY PORTABLE* Chest: Shortness of breath Impression: No acute chest pathology. Reported By: Robby Govea MD 12/09/18 09:20 EXAM#: TYPE/EXAM: RESULT: [id number] CT/HEAD CT WITHOUT CONTRAST REASON FOR THE STUDY. Headache. IMPRESSION: No evidence of acute intracranial hemorrhage. No CT evidence of acute territorial, acute transcortical infarct. The CSF spaces unchanged from prior study. Moderate supratentorial chronic white matter disease unchanged from prior CT of the brain May. Please refer to the MRI of the brain September 18, 2017. Reported By: Dev Talavera MD 12/09/18 09:36 Medical Decision Making - Medical Decision Making Medical Decision Makin:45 a/p: 58yo male with hx of htn, hld, borderline dm, ckd with dizziness this AM and elevated bp -took his bp meds at 7am -no recent changes in meds or dosing -saw Dr. Villareal yesterday with bp 130 in the office -pt with hx of cva 1 year ago -neuro intact other than memory - at baseline per sons -Dr. Granados neuro -Dr. Monroe is nephro -no cp/sob -elevated bp, will dose hydralazine IV and send labs, head ct given pt is symptomatic -will monitor and reassess 9:16a cxr clear 9:41a no acute findings on head ct trop neg 10:35 pt states all symptoms resolved pt feeling much better bp improved pt updated n labs and imaging case discussed with Dr. Villareal who accepts pt to service for bp management requests consult to dr. monroe, dr. potts, dr. granados pt updated and agrees to stay son at the bedside updated and agrees with the plan Discharge - Discharge Information Problems reviewed: Yes Clinical Impression/Diagnosis: Dizziness, Uncontrolled hypertension Condition: Fair - Admission Yes - Follow up/Referral Referrals: Kaur Villareal MD [Primary Care Provider] - - Patient Discharge Instructions - Post Discharge Activity
[2018-12-09] MEDS ORDERED: hydrALAZINE HCL 20 MG/ML VIAL IVPUSH ONE (08:57)
[2018-12-09] MEDS ORDERED: hydrALAZINE HCL 20 MG/ML VIAL ONE (09:03)
[2018-12-09 09:13] LABS: BASO % 1.3 % (0-2.0); EOS % 3.8 % (0-4.5); HEMOGLOBIN 14.8 GM/dL (11.7-16.9); LYMPH % 17.7 % (8-40); MCH 30.7 pg (25.7-33.7); MCHC 32.9 g/dl (32.0-35.9); MEAN CELL VOLUME 93.2 fl (80-96); MONO % 5.8 % (3.8-10.2); NEUT % 71.4 % (42.8-82.8); PLATELET COUNT 246 K/MM3 (134-434); RBC 4.83 M/mm3 (4.00-5.60); RDW 13.4 % (11.9-15.9); WHITE BLOOD COUNT 5.8 K/mm3 (4.0-10.0)
[2018-12-09 09:41] LABS: ALBUMIN 3.7 g/dl (3.4-5.0); BILIRUBIN,TOTAL 0.5 mg/dL (0.2-1); BLOOD UREA NITROGEN 26.2 mg/dL (7-18); CALCIUM 8.9 mg/dL (8.5-10.1); CREATININE 1.6 mg/dL (0.55-1.3); MAGNESIUM 2.2 mg/dL (1.8-2.4); TOT PROT 7.5 g/dl (6.4-8.2)
[2018-12-09 10:28] LABS: PROTHROMBIN TIME (PATIENT) 11.8 SEC (9.7-13.0)
[2018-12-09 10:31] LABS: ACTIVATED PTT 35.5 SECONDS (25.2-36.5)
[2018-12-09 10:57] LABS: URINE APPEARANCE CLEAR; URINE BILIRUBIN NEGATIVE (NEGATIVE); URINE COLOR YELLOW; URINE GLUCOSE (UA) NEGATIVE (NEGATIVE); URINE KETONE NEGATIVE (NEGATIVE); URINE LEUK ESTERASE NEGATIVE (NEGATIVE); URINE NITRITE NEGATIVE (NEGATIVE); URINE PROTEIN NEGATIVE (NEGATIVE); URINE UROBILINOGEN 0.2 mg/dL (0.2-1.0)
[2018-12-09] MEDS ORDERED: NIFEdipine E.R 60 MG TABLET (UD) PO SCH (11:15)
[2018-12-09] MEDS ORDERED: NIFEdipine E.R. 30 MG TABLET (FP) ONE ×2 (11:42→19:46)
[2018-12-09] MEDS ORDERED: HYDROCHLOROTHIAZIDE 25 MG TABLET (FP) ONE (11:42)
[2018-12-09] MEDS: HYDROCHLOROTHIAZIDE 25 MG TABLET (FP) PO SCH (11:56)
--- NOTE | 2018-12-09 12:20 | EKG ---
Test Reason : Blood Pressure : / mmHG Vent. Rate : 067 BPM Atrial Rate : 067 BPM P-R Int : 200 ms QRS Dur : 108 ms QT Int : 422 ms P-R-T Axes : 072 -43 -24 degrees QTc Int : 445 ms NORMAL SINUS RHYTHM POSSIBLE LEFT ATRIAL ENLARGEMENT LEFT AXIS DEVIATION LEFT VENTRICULAR HYPERTROPHY ABNORMAL ECG WHEN COMPARED WITH ECG OF 10-JUN-2018 15:24, T WAVE INVERSION LESS EVIDENT IN LATERAL LEADS Confirmed by PRUDENCE ANDREWS MD ([id number]) on 12/09/2018 12:20:18 PM Referred By: Confirmed By:PRUDENCE ANDREWS MD
--- NOTE | 2018-12-09 13:52 | CONSULT ---
Consult Consult Specialty:: Nephrology Reason for Consultation:: CKD and htn - History of Present Illness Chief Complaint: sent in for htn History of Present Illness: Pt is a 58 year old male with pmhx of htn, cva, ckd, hld, and pre-DM who presents to the ER for htn. He says that some of his medication have been changed. He reports normal blood pressures at home however they have recently been getting higher. He did have dizziness. I was called to evaluate him for htn. He denies chest pain. He follows with me for CKD. 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 Cardio/Vascular: Yes: HTN Renal/: Yes: Renal Inusuff - Alcohol/Substance Use Hx Alcohol Use: No - Smoking History Smoking history: Never smoked Have you smoked in the past 12 months: No Home Medications - Allergies Allergies/Adverse Reactions: Allergies Allergy/AdvReac Type Severity Reaction Status Date / Time No Known Allergies Allergy Verified 12/09/18 08:25 - Home Medications Home Medications: Ambulatory Orders Aspirin [ASA -] 81 mg PO DAILY 06/10/18 Atorvastatin Ca [Lipitor] 20 mg PO HS 06/10/18 Cholecalciferol (Vitamin D3) [Vitamin D -] 125 mg PO DAILY 06/10/18 Clopidogrel Bisulfate [Plavix] 75 mg PO DAILY 06/10/18 Bupropion HCl [Wellbutrin Xl -] 150 mg PO DAILY #30 tab.sr.24h MDD 1 06/12/18 Hydrochlorothiazide [Hctz -] 25 mg PO DAILY #30 tablet MDD 1 06/12/18 Metoprolol Succinate [Toprol XL -] 200 mg PO DAILY #60 tab.sr.24h MDD 2 Nifedipine ER [Procardia XL -] 60 mg PO BID #60 tab.er.24 MDD 2 06/12/18 Family Medical History Family History: Denies Review of Systems - Review of Systems Constitutional: reports: Malaise Eyes: reports: No Symptoms HENT: reports: No Symptoms Neck: reports: No Symptoms Cardiovascular: reports: No Symptoms Respiratory: reports: No Symptoms Gastrointestinal: reports: No Symptoms Genitourinary: reports: No Symptoms Musculoskeletal: reports: No Symptoms Integumentary: reports: No Symptoms Neurological: reports: Dizziness Endocrine: reports: No Symptoms Hematology/Lymphatic: reports: No Symptoms Psychiatric: reports: No Symptoms Physical Exam Vital Signs: Vital Signs Temperature 98.6 F 12/09/18 08:18 Pulse Rate 69 12/09/18 12:20 Respiratory Rate 18 12/09/18 12:20 Blood Pressure 170/93 12/09/18 12:20 O2 Sat by Pulse Oximetry (%) 99 12/09/18 12:20 Constitutional: Yes: Calm Eyes: Yes: Conjunctiva Clear HENT: Yes: Atraumatic Neck: Yes: Supple Cardiovascular: Yes: S1, S2 Respiratory: Yes: CTA Bilaterally Gastrointestinal: Yes: Soft Renal/: Yes: WNL Musculoskeletal: Yes: WNL Edema: No Neurological: Yes: Oriented Psychiatric: Yes: Oriented Labs: CBC, BMP 12/09/18 08:51 12/09/18 08:51 Imaging - Results Chest X-ray: Report Reviewed Problem List - Problems (1) Dizziness Code(s): R42 - DIZZINESS AND GIDDINESS (2) Uncontrolled hypertension Code(s): I10 - ESSENTIAL (PRIMARY) HYPERTENSION (3) CKD (chronic kidney disease), stage III Code(s): N18.3 - CHRONIC KIDNEY DISEASE, STAGE 3 (MODERATE) Assessment/Plan Current Medications Generic Name Dose Route Start Last Admin Trade Name Freq PRN Reason Stop Dose Admin Aspirin 81 mg 12/10/18 10:00 Ecotrin - PO DAILY SYMONE Atorvastatin Calcium 20 mg 12/09/18 22:00 Lipitor - PO HS SYMONE Bupropion HCl 150 mg 12/10/18 10:00 Wellbutrin Xl - PO DAILY [facility] Clopidogrel Bisulfate 75 mg 12/10/18 10:00 Plavix - PO DAILY [facility]MONE Hydralazine HCl 10 mg 12/09/18 22:00 Apresoline - PO BID SYMONE Hydrochlorothiazide 25 mg 12/09/18 11:15 12/09/18 11:56 Hctz - PO 25 mg DAILY SYMONE Administration Metoprolol Succinate 200 mg 12/10/18 10:00 Toprol Xl - PO DAILY SYMONE Nifedipine 60 mg 12/09/18 11:15 12/09/18 11:56 Procardia Xl - PO 60 mg DAILY SYMONE Administration Impression 1. CKD 2. HTN 3. HLD 4. CVA Plan - increase procardia to 90 - increase hydralazine - monitor bp - check ua - discussed plan with pt
--- NOTE | 2018-12-09 14:37 | CON.CARD ---
Consult Consult Specialty:: Cardiology Referred by:: Dionna Reason for Consultation:: uncontrolled hypertension - History of Present Illness Chief Complaint: High blood pressure History of Present Illness: the patient is a 58-year-old man with a history of poorly controlled hypertension, stroke in 2018,with prior admissions for blood pressure control who claims to be compliant with his regimen. Now presentedwith markedly elevated blood pressure.The patient reports no symptoms. Denies chest pains and shortness of breath. No headaches.No nausea nor vomiting. The patient is comfortable. 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 Cardio/Vascular: Yes: HTN - Alcohol/Substance Use Hx Alcohol Use: No - Smoking History Smoking history: Never smoked Have you smoked in the past 12 months: No Home Medications - Allergies Allergies/Adverse Reactions: Allergies Allergy/AdvReac Type Severity Reaction Status Date / Time No Known Allergies Allergy Verified 12/09/18 08:25 - Home Medications Home Medications: Ambulatory Orders Aspirin [ASA -] 81 mg PO DAILY 06/10/18 Atorvastatin Ca [Lipitor] 20 mg PO HS 06/10/18 Cholecalciferol (Vitamin D3) [Vitamin D -] 125 mg PO DAILY 06/10/18 Clopidogrel Bisulfate [Plavix] 75 mg PO DAILY 06/10/18 Bupropion HCl [Wellbutrin Xl -] 150 mg PO DAILY #30 tab.sr.24h MDD 1 06/12/18 Hydrochlorothiazide [Hctz -] 25 mg PO DAILY #30 tablet MDD 1 06/12/18 Metoprolol Succinate [Toprol XL -] 200 mg PO DAILY #60 tab.sr.24h MDD 2 Nifedipine ER [Procardia XL -] 60 mg PO BID #60 tab.er.24 MDD 2 06/12/18 Review of Systems - Review of Systems Constitutional: reports: No Symptoms Eyes: reports: No Symptoms HENT: reports: No Symptoms Neck: reports: No Symptoms Cardiovascular: reports: No Symptoms Respiratory: reports: No Symptoms Gastrointestinal: reports: No Symptoms Genitourinary: reports: No Symptoms Breasts: reports: No Symptoms Reported Musculoskeletal: reports: No Symptoms Integumentary: reports: No Symptoms Neurological: reports: No Symptoms Endocrine: reports: No Symptoms Hematology/Lymphatic: reports: No Symptoms Psychiatric: reports: No Symptoms Vital Signs: Vital Signs Temperature 98.6 F 12/09/18 08:18 Pulse Rate 69 12/09/18 12:20 Respiratory Rate 18 12/09/18 12:20 Blood Pressure 170/93 12/09/18 12:20 O2 Sat by Pulse Oximetry (%) 99 12/09/18 12:20 Constitutional: Yes: Well Nourished, No Distress, Calm Eyes: Yes: WNL, Conjunctiva Clear, EOM Intact HENT: Yes: WNL, Atraumatic, Normocephalic Neck: Yes: WNL, Supple, Trachea Midline Respiratory: Yes: WNL, Regular, CTA Bilaterally Gastrointestinal: Yes: WNL, Normal Bowel Sounds, Soft Renal/: Yes: WNL Cardiovascular: Yes: WNL, Regular Rate and Rhythm JVD: No Carotid Bruit: No PMI: Non-Displaced Heart Sounds: Yes: S1, S2 Musculoskeletal: Yes: WNL Extremities: Yes: WNL Edema: No Peripheral Pulses: 2+ Left Carotid, 2+ Right Carotid, 2+ Left Femoral, 2+ Right Femoral, 2+ Left Popliteal, 2+ Right Popliteal, 2+ Left Doralis Pedis, 2+ Right Dorsalis Pedis Integumentary: Yes: WNL Neurological: Yes: WNL, Alert, Oriented ...Motor Strength: WNL Psychiatric: Yes: WNL, Alert, Oriented - Other Data Labs, Other Data: CBC, BMP 12/09/18 08:51 12/09/18 08:51 INR, PTT INR 1.00 (0.83-1.09) 12/09/18 08:51 Troponin, BNP 12/09/18 12/09/18 08:51 11:52 Troponin I 0.03 0.03 Troponin, BNP 12/09/18 12/09/18 08:51 11:52 Troponin I 0.03 0.03 Assessment/Plan the patient is a 58-year-old man with a history of poorly controlled hypertension, stroke in 2018,with prior admissions for blood pressure control who claims to be compliant with his regimen. Now presentedwith markedly elevated blood pressure.The patient reports no symptoms. Denies chest pains and shortness of breath. No headaches.No nausea nor vomiting. The patient is comfortable. there is no evidence of ischemia nor acute coronary syndrome. The patient is completely asymptomatic.Offering no specific complaints. Denies chest pains and shortness of breath. No palpitations.No headaches. please increasenifedipine from 60-90 mg daily. Increase hydralazine to 25 mg 3 times a day. Continue Toprol-XL and hydrochlorothiazide as currently. no need for cardiac monitoring. No need for further cardiac workup at this point. Please do not hesitate to call us PRN.
[2018-12-09] MEDS ORDERED: NIFEdipine E.R. 30 MG TABLET (FP) PO ONE (18:45)
--- NOTE | 2018-12-09 18:46 | HP ---
Admitting History and Physical - Primary Care Physician PCP: Kaur Villareal - Admission Chief Complaint: Hypertensive episode. CKD History of Present Illness: The patient is a 58 year old male, with a significant PMH of CVA (last year with some residual memory loss), HTN, HLD, pre-diabetic, and CKD, who presents to the ED for evaluation of elevated blood pressure since earlier this morning. Patient is a poor historian, and sons at bedside provide history. Patient sons note he took all of his medications this morning (including Hydralazine and Metoprolol) 1.5 hour prior to arrival. His BP has remained elevated, and he reported feeling dizzy (denies room-spinning or feeling of loosing consciousness , notes he feels off). He denies any recent changes in his medications, or missing a medication dose. Patient was seen by his PCP yesterday, and his sons note his BP was normal yesterday (~130s systolic). He denies any other acute complaints. Denies fever, chills, chest pain, SOB, diarrhea, constipation, dysuria, hematuria, headache, numbness, tingling, vision changes, or blurred vision. 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 Cardiovascular: Yes: HTN - Smoking History Smoking history: Never smoked Have you smoked in the past 12 months: No - Alcohol/Substance Use Hx Alcohol Use: No Home Medications - Allergies Allergies/Adverse Reactions: Allergies Allergy/AdvReac Type Severity Reaction Status Date / Time No Known Allergies Allergy Verified 12/09/18 08:25 - Home Medications Home Medications: Ambulatory Orders Aspirin [ASA -] 81 mg PO DAILY 06/10/18 Atorvastatin Ca [Lipitor] 20 mg PO HS 06/10/18 Cholecalciferol (Vitamin D3) [Vitamin D -] 125 mg PO DAILY 06/10/18 Clopidogrel Bisulfate [Plavix] 75 mg PO DAILY 06/10/18 Bupropion HCl [Wellbutrin Xl -] 150 mg PO DAILY #30 tab.sr.24h MDD 1 06/12/18 Hydrochlorothiazide [Hctz -] 25 mg PO DAILY #30 tablet MDD 1 06/12/18 Metoprolol Succinate [Toprol XL -] 200 mg PO DAILY #60 tab.sr.24h MDD 2 Nifedipine ER [Procardia XL -] 60 mg PO BID #60 tab.er.24 MDD 2 06/12/18 Review of Systems - Review of Systems Constitutional: reports: No Symptoms Eyes: reports: No Symptoms HENT: reports: No Symptoms Neck: reports: No Symptoms Cardiovascular: reports: No Symptoms Respiratory: reports: No Symptoms Gastrointestinal: reports: No Symptoms Genitourinary: reports: No Symptoms Breasts: reports: No Symptoms Reported Musculoskeletal: reports: No Symptoms Integumentary: reports: No Symptoms Neurological: reports: No Symptoms Endocrine: reports: No Symptoms Hematology/Lymphatic: reports: No Symptoms Psychiatric: reports: No Symptoms Physical Examination Vital Signs: Vital Signs Temperature 98.6 F 12/09/18 08:18 Pulse Rate 69 12/09/18 12:20 Respiratory Rate 18 12/09/18 12:20 Blood Pressure 170/93 12/09/18 12:20 O2 Sat by Pulse Oximetry (%) 99 12/09/18 12:20 Constitutional: Yes: Well Nourished, No Distress, Calm Cardiovascular: Yes: Regular Rate and Rhythm Respiratory: Yes: Regular Gastrointestinal: Yes: Normal Bowel Sounds, Soft Renal/: Yes: WNL Musculoskeletal: Yes: WNL Extremities: Yes: WNL Edema: No Peripheral Pulses WNL: Yes Neurological: Yes: Alert, Oriented Psychiatric: Yes: Alert, Oriented Labs: CBC, BMP 12/09/18 08:51 12/09/18 08:51 Imaging - Results Chest X-ray: Report Reviewed Cat Scan: Report Reviewed Problem List - Problems (1) Uncontrolled hypertension Assessment/Plan: -Cardiology consult -Nephrology consult -IV hydralazine given in ER -BP mildly improved -Admit to Tele Code(s): I10 - ESSENTIAL (PRIMARY) HYPERTENSION (2) CKD (chronic kidney disease), stage III Assessment/Plan: -Nephrology consult -Monitor Cr Code(s): N18.3 - CHRONIC KIDNEY DISEASE, STAGE 3 (MODERATE) (3) Hypertensive urgency, malignant Code(s): I16.0 - HYPERTENSIVE URGENCY Assessment/Plan see problem list
[2018-12-09] MEDS ORDERED: hydrALAZINE HCL 25 MG TABLET (FP) PO SCH (22:00)
[2018-12-09] MEDS ORDERED: hydrALAZINE HCL 10 MG TABLET PO SCH (22:00)
[2018-12-10 00:13] VITALS: BMI 30.1
[2018-12-10] MEDS ORDERED: hydrALAZINE HCL 50 MG TABLET (FP) PO ONE (00:21)
[2018-12-10] MEDS ORDERED: hydrALAZINE HCL 25 MG TABLET (FP) PO ONE (00:24)
[2018-12-10] MEDS: hydrALAZINE HCL 25 MG TABLET (FP) PO SCH ×4 (00:39→21:13)
[2018-12-10] MEDS: ATORVASTATIN CA 20 MG TABLET (FP) PO SCH ×2 (00:39→21:13)
[2018-12-10 06:49] LABS: ALBUMIN 3.5 g/dl (3.4-5.0); BILIRUBIN,TOTAL 0.6 mg/dL (0.2-1); BLOOD UREA NITROGEN 21.4 mg/dL (7-18); CALCIUM 9.1 mg/dL (8.5-10.1); CREATININE 1.4 mg/dL (0.55-1.3); POTASSIUM 3.7 mmol/L (3.5-5.1); TOT PROT 7.3 g/dl (6.4-8.2)
[2018-12-10] MEDS: HYDROCHLOROTHIAZIDE 25 MG TABLET (FP) PO SCH (09:55)
[2018-12-10] MEDS: CLOPIDOGREL BISULFATE 75 MG TABLET (FP) PO SCH (09:55)
[2018-12-10] MEDS: ASPIRIN COATED 81 MG TABLET.EC PO SCH (09:55)
[2018-12-10] MEDS: NIFEdipine E.R. 90 MG TABLET (FP) PO SCH (09:56)
--- NOTE | 2018-12-10 15:55 | CONSULT ---
Consult - text type - Consultation Consultation Note: NEUROLOGY CONSULT GREATLY APPRECIATED: Events reviewed. Patient examined. Cardiology consult read and appreciated. This 58 yo RH man is known to me with [employer] microvascular disease c/w long standing HTN. Son at bedside. Last seen in office 08/16/18. PMHX: HTN, HLD, depression. On: ASA, atorvastatin, Vit D3, plavix, buproprion 150 mg XL, HCTZ, metoprolol ER 200 mg, nifedipine, valsartan. Previous episodes of vertigo associated with elevated BP, presenting yesterday with similar complaints of "dizziness." Prior workup included MRI of brain with diffuse white matter disease. We even performed LP in the office which was negative for MS. Ataxia, apathy and hyperreflexia improved as out patient with BP control and Pt was able to return to work. Now admitted after "not feeling himself" today with unsteady gait. Follows BP's at home and today was "a little high" at 195/[address] (Reviewed): Shows scattered, diffuse chronic microvascular changes. Calcified intracranial vessels. No acute pathology. BP on admission= 190/118. Son concerned as memory loss persists since last visit. MADY: BP 164/88. Cor reg. No bruit. Neck supple. NEURO: Awake, alert, flat affect, speech sparse. [facility]. "Trauma Unit." Month 26. No December -> November. 1918-> 2018. TRUMP-> PMURT. 04/19 recall @ 3 min + glabella, palmomentals. CNII-CNXII: EOM's full without nystagmus. Full hernandez. No facial. Gag ok. Motor: No drift or tremor. Strength normal. Reflexes brisk throughout. GENI's preserved. L plantar equivocal. Coordination: Mild L FTN dysmetria. Sensation: Normal to vibration. Romberg +/-. Gait: Scissoring. Can walk on heels, toes. Difficulty with tandem walk. 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 Update MRI of the brqain (C-) Check TSH, B12, RPR Continue ASA, plavix for stroke prevention Thank you very much, Christopher Pedro MD
--- NOTE | 2018-12-10 17:38 | PN ---
Progress Note, Physician History of Present Illness: Pt seen and examined at bedside. He is awake and alert. He denies headache or dizziness. - Current Medication List Current Medications: Active Medications Aspirin (Ecotrin -) 81 mg PO DAILY [facility] Last Admin: 12/10/18 09:55 Dose: 81 mg Atorvastatin Calcium (Lipitor -) 20 mg PO HS [facility] Last Admin: 12/10/18 00:39 Dose: 20 mg Bupropion HCl (Wellbutrin Xl -) 150 mg PO DAILY [facility] Last Admin: 12/10/18 09:56 Dose: 150 mg Clopidogrel Bisulfate (Plavix -) 75 mg PO DAILY [facility] Last Admin: 12/10/18 09:55 Dose: 75 mg Hydralazine HCl (Apresoline -) 50 mg PO TID [facility] Last Admin: 12/10/18 13:35 Dose: 50 mg Hydrochlorothiazide (Hctz -) 25 mg PO DAILY [facility] Last Admin: 12/10/18 09:55 Dose: 25 mg Metoprolol Succinate (Toprol Xl -) 300 mg PO DAILY [facility] Nifedipine (Procardia Xl -) 90 mg PO DAILY [facility] Last Admin: 12/10/18 09:56 Dose: 90 mg - Objective Vital Signs: Vital Signs Temperature 98.3 F 12/10/18 14:16 Pulse Rate 86 12/10/18 14:16 Respiratory Rate 12 12/10/18 14:16 Blood Pressure 164/88 12/10/18 14:16 O2 Sat by Pulse Oximetry (%) 99 12/10/18 11:00 Constitutional: Yes: Calm Eyes: Yes: Conjunctiva Clear HENT: Yes: Atraumatic Neck: Yes: Supple Cardiovascular: Yes: S1, S2 Gastrointestinal: Yes: WNL Genitourinary: Yes: WNL Musculoskeletal: Yes: WNL Edema: No Neurological: Yes: Oriented Psychiatric: Yes: Oriented Labs: CBC, BMP 12/09/18 08:51 12/10/18 05:45 INR, PTT INR 1.00 (0.83-1.09) 12/09/18 08:51 Problem List - Problems (1) Dizziness Code(s): R42 - DIZZINESS AND GIDDINESS (2) Uncontrolled hypertension Code(s): I10 - ESSENTIAL (PRIMARY) HYPERTENSION (3) CKD (chronic kidney disease), stage III Code(s): N18.3 - CHRONIC KIDNEY DISEASE, STAGE 3 (MODERATE) Assessment/Plan Current Medications Generic Name Dose Route Start Last Admin Trade Name Ricky PRN Reason Stop Dose Admin Aspirin 81 mg 12/10/18 10:00 12/10/18 09:55 Ecotrin - PO 81 mg DAILY [facility] Administration Atorvastatin Calcium 20 mg 12/09/18 22:00 12/10/18 00:39 Lipitor - PO 20 mg HS [facility] Administration Bupropion HCl 150 mg 12/10/18 10:00 12/10/18 09:56 Wellbutrin Xl - PO 150 mg DAILY [facility] Administration Clopidogrel Bisulfate 75 mg 12/10/18 10:00 12/10/18 09:55 Plavix - PO 75 mg DAILY [facility] Administration Hydralazine HCl 50 mg 12/10/18 06:23 12/10/18 13:35 Apresoline - PO 50 mg TID [facility] Administration Hydrochlorothiazide 25 mg 12/09/18 11:15 12/10/18 09:55 Hctz - PO 25 mg DAILY [facility] Administration Metoprolol Succinate 300 mg 12/11/18 10:00 Toprol Xl - PO DAILY [facility] Nifedipine 90 mg 12/10/18 10:00 12/10/18 09:56 Procardia Xl - PO 90 mg DAILY [facility] Administration Impression 1. CKD 2. HTN 3. HLD 4. CVA Plan - bp is improving - will add losartan - monitor renal function - cont to monitor bp
[2018-12-10] MEDS: LOSARTAN POTASSIUM 25 MG TABLET PO SCH (18:29)
[2018-12-11] MEDS ORDERED: hydrALAZINE HCL 25 MG TABLET (FP) PO ONE (00:24)
[2018-12-11] MEDS: HYDROCHLOROTHIAZIDE 25 MG TABLET (FP) PO SCH (09:26)
[2018-12-11] MEDS: ASPIRIN COATED 81 MG TABLET.EC PO SCH (09:26)
[2018-12-11] MEDS: LOSARTAN POTASSIUM 25 MG TABLET PO SCH (09:27)
[2018-12-11] MEDS: NIFEdipine E.R. 90 MG TABLET (FP) PO SCH (09:27)
[2018-12-11] MEDS: CLOPIDOGREL BISULFATE 75 MG TABLET (FP) PO SCH (09:27)
--- NOTE | 2018-12-11 11:04 | PN ---
Progress Note, Physician Chief Complaint: patient seen and examined BP is elevated require hydralazine 50mg two doses no dizzines no chest pain no nausea no AWAD - Current Medication List Current Medications: Active Medications Aspirin (Ecotrin -) 81 mg PO DAILY [facility] Last Admin: 12/11/18 09:26 Dose: 81 mg Atorvastatin Calcium (Lipitor -) 20 mg PO HS [facility] Last Admin: 12/10/18 21:13 Dose: 20 mg Bupropion HCl (Wellbutrin Xl -) 150 mg PO DAILY [facility] Last Admin: 12/11/18 09:27 Dose: 150 mg Clopidogrel Bisulfate (Plavix -) 75 mg PO DAILY [facility] Last Admin: 12/11/18 09:27 Dose: 75 mg Hydralazine HCl (Apresoline -) 50 mg PO TID [facility] Hydrochlorothiazide (Hctz -) 25 mg PO DAILY [facility] Last Admin: 12/11/18 09:26 Dose: 25 mg Losartan Potassium (Cozaar -) 25 mg PO DAILY [facility] Last Admin: 12/11/18 09:27 Dose: 25 mg Metoprolol Succinate (Toprol Xl -) 300 mg PO DAILY [facility] Last Admin: 12/11/18 09:26 Dose: 300 mg Nifedipine (Procardia Xl -) 90 mg PO DAILY [facility] Last Admin: 12/11/18 09:27 Dose: 90 mg - Objective Vital Signs: Vital Signs Temperature 98.3 F 12/11/18 06:00 Pulse Rate 75 12/11/18 08:00 Respiratory Rate 16 12/11/18 08:09 Blood Pressure 164/90 12/11/18 08:00 O2 Sat by Pulse Oximetry (%) 98 12/11/18 08:09 Constitutional: Yes: Calm Cardiovascular: Yes: Regular Rate and Rhythm, S1, S2 Respiratory: Yes: CTA Bilaterally Gastrointestinal: Yes: Normal Bowel Sounds, Soft Edema: No Neurological: Yes: Alert, Oriented Labs: CBC, BMP 12/09/18 08:51 12/10/18 05:45 INR, PTT INR 1.00 (0.83-1.09) 12/09/18 08:51 Problem List - Problems (1) Uncontrolled hypertension Assessment/Plan: inc hydralazine to 50mg tid losaratan 25mg toprol and hctz monitor BP Code(s): I10 - ESSENTIAL (PRIMARY) HYPERTENSION (2) CKD (chronic kidney disease), stage III Assessment/Plan: creatinine slightly better on losartan Code(s): N18.3 - CHRONIC KIDNEY DISEASE, STAGE 3 (MODERATE) (3) H/O: CVA (cerebrovascular accident) Assessment/Plan: on asprin and statin and plavix Code(s): Z86.73 - PRSNL HX OF TIA (TIA), AND CEREB INFRC W/O RESID DEFICITS
[2018-12-11] MEDS: hydrALAZINE HCL 25 MG TABLET (FP) PO SCH ×2 (14:30→21:16)
--- NOTE | 2018-12-11 14:53 | PN ---
Progress Note, Physician History of Present Illness: Pt seen and examined at bedside. He is awake and alert. He is eager to go home. He denies dizziness or headache. - Current Medication List Current Medications: Active Medications Aspirin (Ecotrin -) 81 mg PO DAILY [facility] Last Admin: 12/11/18 09:26 Dose: 81 mg Atorvastatin Calcium (Lipitor -) 20 mg PO HS [facility] Last Admin: 12/10/18 21:13 Dose: 20 mg Bupropion HCl (Wellbutrin Xl -) 150 mg PO DAILY [facility] Last Admin: 12/11/18 09:27 Dose: 150 mg Clopidogrel Bisulfate (Plavix -) 75 mg PO DAILY [facility] Last Admin: 12/11/18 09:27 Dose: 75 mg Hydralazine HCl (Apresoline -) 50 mg PO TID [facility] Last Admin: 12/11/18 14:30 Dose: 50 mg Hydrochlorothiazide (Hctz -) 25 mg PO DAILY [facility] Last Admin: 12/11/18 09:26 Dose: 25 mg Losartan Potassium (Cozaar -) 25 mg PO DAILY [facility] Last Admin: 12/11/18 09:27 Dose: 25 mg Metoprolol Succinate (Toprol Xl -) 300 mg PO DAILY [facility] Last Admin: 12/11/18 09:26 Dose: 300 mg Nifedipine (Procardia Xl -) 90 mg PO DAILY [facility] Last Admin: 12/11/18 09:27 Dose: 90 mg - Objective Vital Signs: Vital Signs Temperature 98.3 F 12/11/18 06:00 Pulse Rate 75 12/11/18 08:00 Respiratory Rate 16 12/11/18 08:09 Blood Pressure 164/90 12/11/18 08:00 O2 Sat by Pulse Oximetry (%) 98 12/11/18 08:09 Constitutional: Yes: Calm Eyes: Yes: Conjunctiva Clear HENT: Yes: Atraumatic Neck: Yes: Supple Cardiovascular: Yes: S1, S2 Respiratory: Yes: CTA Bilaterally Gastrointestinal: Yes: Soft Genitourinary: Yes: WNL Musculoskeletal: Yes: WNL Edema: No Integumentary: Yes: WNL Neurological: Yes: Oriented Psychiatric: Yes: Oriented Labs: CBC, BMP 12/09/18 08:51 12/10/18 05:45 INR, PTT INR 1.00 (0.83-1.09) 12/09/18 08:51 Problem List - Problems (1) Dizziness Code(s): R42 - DIZZINESS AND GIDDINESS (2) Uncontrolled hypertension Code(s): I10 - ESSENTIAL (PRIMARY) HYPERTENSION (3) CKD (chronic kidney disease), stage III Code(s): N18.3 - CHRONIC KIDNEY DISEASE, STAGE 3 (MODERATE) Assessment/Plan Current Medications Generic Name Dose Route Start Last Admin Trade Name Ricky PRN Reason Stop Dose Admin Aspirin 81 mg 12/10/18 10:00 12/11/18 09:26 Ecotrin - PO 81 mg DAILY [facility] Administration Atorvastatin Calcium 20 mg 12/09/18 22:00 12/10/18 21:13 Lipitor - PO 20 mg HS [facility] Administration Bupropion HCl 150 mg 12/10/18 10:00 12/11/18 09:27 Wellbutrin Xl - PO 150 mg DAILY [facility] Administration Clopidogrel Bisulfate 75 mg 12/10/18 10:00 12/11/18 09:27 Plavix - PO 75 mg DAILY [facility] Administration Hydralazine HCl 50 mg 12/11/18 14:00 12/11/18 14:30 Apresoline - PO 50 mg TID [facility] Administration Hydrochlorothiazide 25 mg 12/09/18 11:15 12/11/18 09:26 Hctz - PO 25 mg DAILY [facility] Administration Losartan Potassium 25 mg 12/10/18 17:45 12/11/18 09:27 Cozaar - PO 25 mg DAILY [facility] Administration Metoprolol Succinate 300 mg 12/11/18 10:00 12/11/18 09:26 Toprol Xl - PO 300 mg DAILY [facility] Administration Nifedipine 90 mg 12/10/18 10:00 12/11/18 09:27 Procardia Xl - PO 90 mg DAILY [facility] Administration Impression 1. CKD 2. HTN 3. HLD 4. CVA Plan - bp is stabilizing - anxiety is contributing - cont losartan, can titrate to 50 mg if needed - renal function is stable - hydralazine increased - will see pt in office after discharge
--- NOTE | 2018-12-11 16:29 | PN ---
Progress Note (short form) - Note Progress Note: NEUROLOGY PROGRESS: Events reviewed. BP's better controlled. Pt feels "back to himself" today. Ambulating without difficulty. Carotid duplex doppler reviewed: Some intimal thickening but no sig plaque or stenosis. EXAM: No bruits. Ox 3. Reverses and recalls normally CN II-XII: Normal Mild right drift. Good GENI's. Normal reflexes. Toes downgoing. Romberg Neg Gait: Normal base. IMP: Essentially normal neurological exam Hypertensive encephalopathy Underfying Hypertensive white matter disease Depression SUGGEST: Normalize BP and encourage compliance Increase Wellbutrin XL to 300 mg /day Neurologu follow-up as out patient. Thank you very much, Christopher Pedro MD
[2018-12-11] MEDS: ATORVASTATIN CA 20 MG TABLET (FP) PO SCH (21:17)
[2018-12-12] MEDS: hydrALAZINE HCL 25 MG TABLET (FP) PO SCH ×3 (05:57→21:47)
[2018-12-12 07:38] LABS: ALBUMIN 3.4 g/dl (3.4-5.0); BILIRUBIN,TOTAL 0.6 mg/dL (0.2-1); BLOOD UREA NITROGEN 34.8 mg/dL (7-18); CREATININE 1.9 mg/dL (0.55-1.3); TOT PROT 7.4 g/dl (6.4-8.2)
[2018-12-12] MEDS: ASPIRIN COATED 81 MG TABLET.EC PO SCH (09:13)
[2018-12-12] MEDS: HYDROCHLOROTHIAZIDE 25 MG TABLET (FP) PO SCH (09:14)
[2018-12-12] MEDS: LOSARTAN POTASSIUM 25 MG TABLET PO SCH (09:14)
[2018-12-12] MEDS: CLOPIDOGREL BISULFATE 75 MG TABLET (FP) PO SCH (09:14)
[2018-12-12] MEDS: NIFEdipine E.R. 90 MG TABLET (FP) PO SCH (09:14)
--- NOTE | 2018-12-12 10:48 | PN ---
Progress Note, Physician Chief Complaint: Uncontrolled HTN CKD History of Present Illness: Previous notes and events reviewed awake and alert NAD denies chest pain or SOB denies dizziness - Current Medication List Current Medications: Active Medications Aspirin (Ecotrin -) 81 mg PO DAILY [facility] Last Admin: 12/12/18 09:13 Dose: 81 mg Atorvastatin Calcium (Lipitor -) 20 mg PO HS [facility] Last Admin: 12/11/18 21:17 Dose: 20 mg Bupropion HCl (Wellbutrin Xl -) 150 mg PO DAILY [facility] Last Admin: 12/12/18 09:14 Dose: 150 mg Clopidogrel Bisulfate (Plavix -) 75 mg PO DAILY [facility] Last Admin: 12/12/18 09:14 Dose: 75 mg Hydralazine HCl (Apresoline -) 50 mg PO TID [facility] Last Admin: 12/12/18 05:57 Dose: 50 mg Hydrochlorothiazide (Hctz -) 25 mg PO DAILY [facility] Last Admin: 12/12/18 09:14 Dose: 25 mg Losartan Potassium (Cozaar -) 25 mg PO DAILY [facility] Last Admin: 12/12/18 09:14 Dose: 25 mg Metoprolol Succinate (Toprol Xl -) 300 mg PO DAILY [facility] Last Admin: 12/12/18 09:14 Dose: 300 mg Nifedipine (Procardia Xl -) 90 mg PO DAILY [facility] Last Admin: 12/12/18 09:14 Dose: 90 mg - Objective Vital Signs: Vital Signs Temperature 98.6 F 12/12/18 06:00 Pulse Rate 69 12/12/18 06:00 Respiratory Rate 20 12/12/18 07:36 Blood Pressure 131/79 12/12/18 06:00 O2 Sat by Pulse Oximetry (%) 100 12/12/18 07:36 Constitutional: Yes: No Distress, Calm Eyes: Yes: Conjunctiva Clear HENT: Yes: Atraumatic Cardiovascular: Yes: Regular Rate and Rhythm Respiratory: Yes: Regular, CTA Bilaterally Gastrointestinal: Yes: Normal Bowel Sounds, Soft Musculoskeletal: Yes: Muscle Weakness Extremities: Yes: WNL Edema: No Neurological: Yes: Alert, Oriented Psychiatric: Yes: Alert, Oriented Labs: CBC, BMP 12/09/18 08:51 12/12/18 05:33 INR, PTT INR 1.00 (0.83-1.09) 12/09/18 08:51 Problem List - Problems (1) Dizziness Assessment/Plan: -Cardiology and Neurology on board -Brain MRI shows bilateral cerebellar, left basal ganglia and left thalamus chronic hemorrhagic lacunar infarcts, focal chronic infarcts in the paramedian region to the davida, no mass lesion, acute infarct or intracranial hemorrhage are identified -Carotid US intimal thickening and small plaque at the right common carotid bifurcation/bulb as well as moderate intimal thickening in the left common carotid artery up to the bifurcation with questionable minimal soft plaque buildup in the left buld without evidence of hemodynamically significant stenosis -Fall precautions Code(s): R42 - DIZZINESS AND GIDDINESS (2) Uncontrolled hypertension Assessment/Plan: -Cardiology on board -Tele Monitoring -Hydralazine, HCTZ, Metoprolol, Nifedipine, [place] -low Na diet Code(s): I10 - ESSENTIAL (PRIMARY) HYPERTENSION (3) CKD (chronic kidney disease), stage III Assessment/Plan: -Renal on board -BUN/Cr 34.8/1.9 -monitor renal function Code(s): N18.3 - CHRONIC KIDNEY DISEASE, STAGE 3 (MODERATE) (4) H/O: CVA (cerebrovascular accident) Assessment/Plan: -Aspirin, Plavix, Atorvastatin Code(s): Z86.73 - PRSNL HX OF TIA (TIA), AND CEREB INFRC W/O RESID DEFICITS Assessment/Plan see problem list dvt ppx
--- NOTE | 2018-12-12 17:43 | PN ---
Progress Note (short form) - Note Progress Note: 6 1. CKD 2. HTN 3. HLD 4. CVA Current Medications Aspirin (Ecotrin -) 81 mg PO DAILY [facility] Last Admin: 12/12/18 09:13 Dose: 81 mg Atorvastatin Calcium (Lipitor -) 20 mg PO HS [facility] Last Admin: 12/11/18 21:17 Dose: 20 mg Bupropion HCl (Wellbutrin Xl -) 150 mg PO DAILY [facility] Last Admin: 12/12/18 09:14 Dose: 150 mg Clopidogrel Bisulfate (Plavix -) 75 mg PO DAILY [facility] Last Admin: 12/12/18 09:14 Dose: 75 mg Hydralazine HCl (Apresoline -) 50 mg PO TID [facility] Last Admin: 12/12/18 14:06 Dose: 50 mg Hydrochlorothiazide (Hctz -) 25 mg PO DAILY [facility] Last Admin: 12/12/18 09:14 Dose: 25 mg Losartan Potassium (Cozaar -) 25 mg PO DAILY [facility] Last Admin: 12/12/18 09:14 Dose: 25 mg Metoprolol Succinate (Toprol Xl -) 300 mg PO DAILY [facility] Last Admin: 12/12/18 09:14 Dose: 300 mg Nifedipine (Procardia Xl -) 90 mg PO DAILY [facility] Last Admin: 12/12/18 09:14 Dose: 90 mg Last Vital Signs Temp Pulse Resp BP Pulse Ox 98.2 F 74 16 138/87 100 12/12/18 14:30 12/12/18 14:30 12/12/18 14:30 12/12/18 14:30 12/12/18 07:36 CBC, BMP 12/09/18 08:51 12/12/18 05:33 IMP- CKD s creat trending up Plan- f/u BMP in am
[2018-12-12] MEDS: ATORVASTATIN CA 20 MG TABLET (FP) PO SCH (21:47)
[2018-12-13] MEDS: hydrALAZINE HCL 25 MG TABLET (FP) PO SCH ×3 (06:17→21:55)
[2018-12-13 07:24] LABS: HEMATOCRIT 45.2 % (35.4-49); HEMOGLOBIN 15.3 GM/dL (11.7-16.9); MCH 31.2 pg (25.7-33.7); MCHC 33.9 g/dl (32.0-35.9); MEAN CELL VOLUME 91.9 fl (80-96); PLATELET COUNT 264 K/MM3 (134-434); RBC 4.92 M/mm3 (4.00-5.60); RDW 13.6 % (11.9-15.9); WHITE BLOOD COUNT 8.1 K/mm3 (4.0-10.0)
[2018-12-13 08:05] LABS: ALBUMIN 3.5 g/dl (3.4-5.0); BILIRUBIN,TOTAL 0.9 mg/dL (0.2-1); BLOOD UREA NITROGEN 42.9 mg/dL (7-18); CALCIUM 8.8 mg/dL (8.5-10.1); CREATININE 2.1 mg/dL (0.55-1.3); POTASSIUM 3.5 mmol/L (3.5-5.1); TOT PROT 7.2 g/dl (6.4-8.2)
[2018-12-13] MEDS: HYDROCHLOROTHIAZIDE 25 MG TABLET (FP) PO SCH (10:18)
[2018-12-13] MEDS: LOSARTAN POTASSIUM 25 MG TABLET PO SCH (10:18)
[2018-12-13] MEDS: ASPIRIN COATED 81 MG TABLET.EC PO SCH (10:18)
[2018-12-13] MEDS: CLOPIDOGREL BISULFATE 75 MG TABLET (FP) PO SCH (10:18)
[2018-12-13] MEDS: NIFEdipine E.R. 90 MG TABLET (FP) PO SCH (10:18)
--- NOTE | 2018-12-13 10:21 | PN ---
Progress Note, Physician Chief Complaint: Uncontrolled HTN CKD History of Present Illness: Previous notes and events reviewed awake and alert NAD denies chest pain or SOB denies dizziness uptrend in renal function - Current Medication List Current Medications: Active Medications Aspirin (Ecotrin -) 81 mg PO DAILY [facility] Last Admin: 12/13/18 10:18 Dose: 81 mg Atorvastatin Calcium (Lipitor -) 20 mg PO HS [facility] Last Admin: 12/12/18 21:47 Dose: 20 mg Bupropion HCl (Wellbutrin Xl -) 150 mg PO DAILY [facility] Last Admin: 12/13/18 10:18 Dose: 150 mg Clopidogrel Bisulfate (Plavix -) 75 mg PO DAILY [facility] Last Admin: 12/13/18 10:18 Dose: 75 mg Hydralazine HCl (Apresoline -) 50 mg PO TID [facility] Last Admin: 12/13/18 06:17 Dose: 50 mg Hydrochlorothiazide (Hctz -) 25 mg PO DAILY [facility] Last Admin: 12/13/18 10:18 Dose: 25 mg Losartan Potassium (Cozaar -) 25 mg PO DAILY [facility] Last Admin: 12/13/18 10:18 Dose: 25 mg Metoprolol Succinate (Toprol Xl -) 300 mg PO DAILY [facility] Last Admin: 12/13/18 10:17 Dose: 300 mg Nifedipine (Procardia Xl -) 90 mg PO DAILY [facility] Last Admin: 12/13/18 10:18 Dose: 90 mg - Objective Vital Signs: Vital Signs Temperature 98.5 F 12/13/18 06:00 Pulse Rate 67 12/13/18 06:00 Respiratory Rate 20 12/13/18 06:00 Blood Pressure 137/71 12/13/18 06:00 O2 Sat by Pulse Oximetry (%) 100 12/12/18 21:00 Constitutional: Yes: No Distress, Calm Eyes: Yes: Conjunctiva Clear HENT: Yes: Atraumatic Cardiovascular: Yes: Regular Rate and Rhythm Respiratory: Yes: Regular, CTA Bilaterally Gastrointestinal: Yes: Normal Bowel Sounds, Soft Musculoskeletal: Yes: WNL Extremities: Yes: WNL Edema: No Neurological: Yes: Alert, Oriented Psychiatric: Yes: Alert, Oriented Labs: CBC, BMP 12/13/18 05:45 12/13/18 05:45 INR, PTT INR 1.00 (0.83-1.09) 12/09/18 08:51 Problem List - Problems (1) Dizziness Assessment/Plan: -Cardiology and Neurology on board -Brain MRI shows bilateral cerebellar, left basal ganglia and left thalamus chronic hemorrhagic lacunar infarcts, focal chronic infarcts in the paramedian region to the davida, no mass lesion, acute infarct or intracranial hemorrhage are identified -Carotid US intimal thickening and small plaque at the right common carotid bifurcation/bulb as well as moderate intimal thickening in the left common carotid artery up to the bifurcation with questionable minimal soft plaque buildup in the left buld without evidence of hemodynamically significant stenosis -Fall precautions Code(s): R42 - DIZZINESS AND GIDDINESS (2) Uncontrolled hypertension Assessment/Plan: -Cardiology on board -Tele Monitoring -Hydralazine, HCTZ, Metoprolol, Nifedipine, Losartaan -low Na diet Code(s): I10 - ESSENTIAL (PRIMARY) HYPERTENSION (3) CKD (chronic kidney disease), stage III Assessment/Plan: -Renal on board -BUN/Cr 42.9/2.1 -monitor renal function Code(s): N18.3 - CHRONIC KIDNEY DISEASE, STAGE 3 (MODERATE) (4) H/O: CVA (cerebrovascular accident) Assessment/Plan: -Aspirin, Plavix, Atorvastatin Code(s): Z86.73 - PRSNL HX OF TIA (TIA), AND CEREB INFRC W/O RESID DEFICITS Assessment/Plan see problem list dvt ppx begin d/c planning when renal function begin to show downtrend
--- NOTE | 2018-12-13 21:08 | PN ---
Progress Note (short form) - Note Progress Note: 1. CKD 2. HTN 3. HLD 4. CVA Current Medications Aspirin (Ecotrin -) 81 mg PO DAILY [facility] Last Admin: 12/13/18 10:18 Dose: 81 mg Atorvastatin Calcium (Lipitor -) 20 mg PO HS [facility] Last Admin: 12/12/18 21:47 Dose: 20 mg Bupropion HCl (Wellbutrin Xl -) 150 mg PO DAILY [facility] Last Admin: 12/13/18 10:18 Dose: 150 mg Clopidogrel Bisulfate (Plavix -) 75 mg PO DAILY [facility] Last Admin: 12/13/18 10:18 Dose: 75 mg Hydralazine HCl (Apresoline -) 50 mg PO TID [facility] Last Admin: 12/13/18 13:24 Dose: 50 mg Hydrochlorothiazide (Hctz -) 25 mg PO DAILY [facility] Last Admin: 12/13/18 10:18 Dose: 25 mg Losartan Potassium (Cozaar -) 25 mg PO DAILY [facility] Last Admin: 12/13/18 10:18 Dose: 25 mg Metoprolol Succinate (Toprol Xl -) 300 mg PO DAILY [facility] Last Admin: 12/13/18 10:17 Dose: 300 mg Nifedipine (Procardia Xl -) 90 mg PO DAILY [facility] Last Admin: 12/13/18 10:18 Dose: 90 mg Last Vital Signs Temp Pulse Resp BP Pulse Ox 98.3 F 68 18 137/95 100 12/13/18 17:10 12/13/18 17:10 12/13/18 17:10 12/13/18 17:10 12/13/18 09:00 lungs clear heart reg abd soft ext no edema CBC, BMP 12/13/18 05:45 12/13/18 05:45 CBC, BMP 12/09/18 08:51 12/12/18 05:33 IMP- RENAY ON CKD may be 2/2 lower BP's R/O prerenal Plan- encourage oral hydration IV hydration if trend continues d/c hctz for now
[2018-12-13] MEDS: ATORVASTATIN CA 20 MG TABLET (FP) PO SCH (21:55)
--- NOTE | 2018-12-13 21:58 | HOSP ---
Subjective - Review of Symptoms Events since last encounter: Hospitalist Encounter Notified by the RN, that the patient sent a text to his family tonight, and the family was concerned about the patient. Was asked to assess. Arrived to bedside, patient is awake, alert, oriented- at baseline. Patient's family is at bedside. Patient gave verbal permission to speak freely in front of family members. Patient states" I'm fine, I just want to sit and be left alone". Patient denies Suicidal or Homicidal Ideation. Patient denies auditory or visual hallucinations. Patient denies pain, SOB, CP or palpitations. Patient declined physical exam. Plan: Continue with current regimen Monitor closely for SI Physical Examination Vital Signs: Vital Signs Temperature 98.3 F 12/13/18 17:10 Pulse Rate 68 12/13/18 17:10 Respiratory Rate 18 12/13/18 17:10 Blood Pressure 137/95 12/13/18 17:10 O2 Sat by Pulse Oximetry (%) 100 12/13/18 09:00 Labs: CBC, BMP 12/13/18 05:45 12/13/18 05:45 Hospitalist Encounter Assessment: This is a 58 y/o man with a PMHx of CVA (last year with some residual memory loss), HTN, HLD, pre-diabetic, and CKD. Admitted for Hypertensive Emergency, Dizziness . Recommendations/Interventions: Psych Eval
[2018-12-14] MEDS: hydrALAZINE HCL 25 MG TABLET (FP) PO SCH (05:44)
[2018-12-14 09:03] LABS: HEMATOCRIT 44.5 % (35.4-49); HEMOGLOBIN 14.8 GM/dL (11.7-16.9); MCH 30.6 pg (25.7-33.7); MCHC 33.4 g/dl (32.0-35.9); MEAN CELL VOLUME 91.6 fl (80-96); MEAN PLT VOLUME 7.5 fl (7.5-11.1); PLATELET COUNT 289 K/MM3 (134-434); RBC 4.85 M/mm3 (4.00-5.60); RDW 13.6 % (11.9-15.9); WHITE BLOOD COUNT 9.2 K/mm3 (4.0-10.0)
[2018-12-14] MEDS: NIFEdipine E.R. 90 MG TABLET (FP) PO SCH (09:22)
[2018-12-14] MEDS: CLOPIDOGREL BISULFATE 75 MG TABLET (FP) PO SCH (09:22)
[2018-12-14] MEDS: ASPIRIN COATED 81 MG TABLET.EC PO SCH (09:22)
[2018-12-14 09:24] LABS: ALBUMIN 3.8 g/dl (3.4-5.0); BILIRUBIN,TOTAL 0.7 mg/dL (0.2-1); BLOOD UREA NITROGEN 50.1 mg/dL (7-18); CALCIUM 8.9 mg/dL (8.5-10.1); CREATININE 2.5 mg/dL (0.55-1.3); POTASSIUM 3.5 mmol/L (3.5-5.1); TOT PROT 7.6 g/dl (6.4-8.2)
--- NOTE | 2018-12-14 10:10 | PN ---
Progress Note, Physician - Current Medication List Current Medications: Active Medications Aspirin (Ecotrin -) 81 mg PO DAILY [facility] Last Admin: 12/14/18 09:22 Dose: 81 mg Atorvastatin Calcium (Lipitor -) 20 mg PO HS [facility] Last Admin: 12/13/18 21:55 Dose: 20 mg Bupropion HCl (Wellbutrin Xl -) 150 mg PO DAILY [facility] Last Admin: 12/14/18 09:22 Dose: 150 mg Clopidogrel Bisulfate (Plavix -) 75 mg PO DAILY [facility] Last Admin: 12/14/18 09:22 Dose: 75 mg Hydralazine HCl (Apresoline -) 75 mg PO TID [facility] Metoprolol Succinate (Toprol Xl -) 300 mg PO DAILY [facility] Last Admin: 12/14/18 09:22 Dose: 300 mg Nifedipine (Procardia Xl -) 90 mg PO DAILY [facility] Last Admin: 12/14/18 09:22 Dose: 90 mg - Objective Vital Signs: Vital Signs Temperature 98.7 F 12/14/18 05:47 Pulse Rate 80 12/14/18 05:47 Respiratory Rate 20 12/14/18 05:47 Blood Pressure 156/88 12/14/18 05:47 O2 Sat by Pulse Oximetry (%) 97 12/13/18 21:00 Cardiovascular: Yes: Regular Rate and Rhythm Respiratory: Yes: Regular, CTA Bilaterally Gastrointestinal: Yes: Normal Bowel Sounds, Soft Labs: CBC, BMP 12/14/18 08:35 12/14/18 08:35 INR, PTT INR 1.00 (0.83-1.09) 12/09/18 08:51 Assessment/Plan - Problems (1) Dizziness Assessment/Plan: -Cardiology and Neurology on board -Brain MRI shows bilateral cerebellar, left basal ganglia and left thalamus chronic hemorrhagic lacunar infarcts, focal chronic infarcts in the paramedian region to the davida, no mass lesion, acute infarct or intracranial hemorrhage are identified -Carotid US intimal thickening and small plaque at the right common carotid bifurcation/bulb as well as moderate intimal thickening in the left common carotid artery up to the bifurcation with questionable minimal soft plaque buildup in the left buld without evidence of hemodynamically significant stenosis -Fall precautions Code(s): R42 - DIZZINESS AND GIDDINESS (2) Uncontrolled hypertension Assessment/Plan: -Cardiology on board -Tele Monitoring -Hydralazine, HCTZ, Metoprolol, Nifedipine, [place] -low Na diet Code(s): I10 - ESSENTIAL (PRIMARY) HYPERTENSION (3) CKD (chronic kidney disease), stage III Assessment/Plan: -Renal on board--follow up -BUN/Cr 42.9/2.1--2.5 -Rising -monitor renal function Code(s): N18.3 - CHRONIC KIDNEY DISEASE, STAGE 3 (MODERATE) (4) H/O: CVA (cerebrovascular accident) Assessment/Plan: -Aspirin, Plavix, Atorvastatin Code(s): Z86.73 - PRSNL HX OF TIA (TIA), AND CEREB INFRC W/O RESID DEFICITS
--- NOTE | 2018-12-14 12:50 | PN ---
Progress Note, Physician History of Present Illness: Pt seen and examined at bedside. He is awake and alert. He says that the dizziness has improved. He denies dysuria or hematuria. - Current Medication List Current Medications: Active Medications Aspirin (Ecotrin -) 81 mg PO DAILY [facility] Last Admin: 12/14/18 09:22 Dose: 81 mg Atorvastatin Calcium (Lipitor -) 20 mg PO HS [facility] Last Admin: 12/13/18 21:55 Dose: 20 mg Bupropion HCl (Wellbutrin Xl -) 150 mg PO DAILY [facility] Last Admin: 12/14/18 09:22 Dose: 150 mg Clopidogrel Bisulfate (Plavix -) 75 mg PO DAILY [facility] Last Admin: 12/14/18 09:22 Dose: 75 mg Hydralazine HCl (Apresoline -) 75 mg PO TID [facility] Metoprolol Succinate (Toprol Xl -) 300 mg PO DAILY [facility] Last Admin: 12/14/18 09:22 Dose: 300 mg Nifedipine (Procardia Xl -) 90 mg PO DAILY [facility] Last Admin: 12/14/18 09:22 Dose: 90 mg - Objective Vital Signs: Vital Signs Temperature 98.4 F 12/14/18 10:00 Pulse Rate 92 H 12/14/18 10:00 Respiratory Rate 18 12/14/18 10:00 Blood Pressure 147/78 12/14/18 10:00 O2 Sat by Pulse Oximetry (%) 97 12/13/18 21:00 Constitutional: Yes: Calm Eyes: Yes: Conjunctiva Clear HENT: Yes: Atraumatic Neck: Yes: Supple Cardiovascular: Yes: S1, S2 Respiratory: Yes: CTA Bilaterally Gastrointestinal: Yes: Normal Bowel Sounds, Soft Genitourinary: Yes: WNL Musculoskeletal: Yes: WNL Edema: No Neurological: Yes: Oriented Psychiatric: Yes: Oriented Labs: CBC, BMP 12/14/18 08:35 12/14/18 08:35 INR, PTT INR 1.00 (0.83-1.09) 12/09/18 08:51 Problem List - Problems (1) Dizziness Code(s): R42 - DIZZINESS AND GIDDINESS (2) Uncontrolled hypertension Code(s): I10 - ESSENTIAL (PRIMARY) HYPERTENSION (3) CKD (chronic kidney disease), stage III Code(s): N18.3 - CHRONIC KIDNEY DISEASE, STAGE 3 (MODERATE) Assessment/Plan Current Medications Generic Name Dose Route Start Last Admin Trade Name Ricky PRN Reason Stop Dose Admin Aspirin 81 mg 12/10/18 10:00 12/14/18 09:22 Ecotrin - PO 81 mg DAILY [facility] Administration Atorvastatin Calcium 20 mg 12/09/18 22:00 12/13/18 21:55 Lipitor - PO 20 mg HS [facility] Administration Bupropion HCl 150 mg 12/10/18 10:00 12/14/18 09:22 Wellbutrin Xl - PO 150 mg DAILY [facility] Administration Clopidogrel Bisulfate 75 mg 12/10/18 10:00 12/14/18 09:22 Plavix - PO 75 mg DAILY [facility] Administration Hydralazine HCl 75 mg 12/14/18 14:00 Apresoline - PO TID [facility] Metoprolol Succinate 300 mg 12/11/18 10:00 12/14/18 09:22 Toprol Xl - PO 300 mg DAILY [facility] Administration Nifedipine 90 mg 12/10/18 10:00 12/14/18 09:22 Procardia Xl - PO 90 mg DAILY [facility] Administration Impression 1. CKD 2. HTN 3. HLD 4. 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
--- NOTE | 2018-12-14 13:54 | CON.PSY ---
Psychiatry Consult Chief Complaint: I am doing ok, I am not depressed. I have high blood pressure. Reports no increase in Depression. on Wellbutrin. - Previous Psychiatric Treatment Outpatient: Less than 6 mos ago Inpatient: None - Previous Substance Abuse Treatment Outpatient: None Inpatient: None - Reason for Previous Treatment Reason for Previous Treatment: Major Depression - Current Medications Current Medications: Active Medications Aspirin (Ecotrin -) 81 mg PO DAILY [facility] Last Admin: 12/14/18 09:22 Dose: 81 mg Atorvastatin Calcium (Lipitor -) 20 mg PO HS [facility] Last Admin: 12/13/18 21:55 Dose: 20 mg Bupropion HCl (Wellbutrin Xl -) 150 mg PO DAILY [facility] Last Admin: 12/14/18 09:22 Dose: 150 mg Clopidogrel Bisulfate (Plavix -) 75 mg PO DAILY [facility] Last Admin: 12/14/18 09:22 Dose: 75 mg Hydralazine HCl (Apresoline -) 75 mg PO TID [facility] Metoprolol Succinate (Toprol Xl -) 300 mg PO DAILY [facility] Last Admin: 12/14/18 09:22 Dose: 300 mg Nifedipine (Procardia Xl -) 90 mg PO DAILY [facility] Last Admin: 12/14/18 09:22 Dose: 90 mg - Allergies Allergies: Allergies Allergy/AdvReac Type Severity Reaction Status Date / Time No Known Allergies Allergy Verified 12/09/18 08:25 - Current Living Status Usual Living Arrangement: With Spouse - Current Mental Status Evaluation Appearance: Well Groomed Attitude: Cooperative - Affect Affect: Full Range Appropriateness: Appropriate to Content - Mood Mood: Euthymic - Speech/Language Expressive: Coherent - Psychomotor Activity Psychomotor Activity: Normal - Thought Content Hallucinations: Absent Delusions: Absent - Self Perception Self Perception: No Impairment - Cognition Attention: Alert Orientation: Time Memory, Immediate Recall: Intact Memory, Short Term: 3/3 Memory, Remote with Promptin/3 - Concentration Serial Sevens Intact: Yes Simple Calculations Intact: Yes - Abstraction Proverb Interpretation: Intact Judgement: Intact - Insight Insight: Intact - Impulse Control Impulse Control: Good Control - Suicidal Ideation Suicidal Ideation: No - Homicidal Ideation Homicidal Ideation: No Assessment/Plan 1) Continue with Wellbutrin. no changes needed at this time in Psych MEds.
[2018-12-14] MEDS: hydrALAZINE HCL 50 MG TABLET (FP) PO SCH ×2 (15:39→22:56)
[2018-12-14] MEDS: ATORVASTATIN CA 20 MG TABLET (FP) PO SCH (22:57)
[2018-12-15] MEDS: hydrALAZINE HCL 50 MG TABLET (FP) PO SCH (06:07)
[2018-12-15 06:10] VITALS: PULSE 76
[2018-12-15 07:51] LABS: BLOOD UREA NITROGEN 47.8 mg/dL (7-18); CALCIUM 8.9 mg/dL (8.5-10.1); CREATININE 2.2 mg/dL (0.55-1.3); POTASSIUM 3.7 mmol/L (3.5-5.1)
[2018-12-15] MEDS: CLOPIDOGREL BISULFATE 75 MG TABLET (FP) PO SCH (10:27)
[2018-12-15] MEDS: ASPIRIN COATED 81 MG TABLET.EC PO SCH (10:27)
[2018-12-15] MEDS: NIFEdipine E.R. 90 MG TABLET (FP) PO SCH (10:28)
--- NOTE | 2018-12-15 11:36 | PN ---
Progress Note, Physician Chief Complaint: Uncontrolled HTN CKD Depression History of Present Illness: NAD sitting in chair teary eyed, doesn't make any eye contact Reluctant to answer any questions Seen by Psychiatry Already on Wellbutrin 150 mg XL po daily - Current Medication List Current Medications: Active Medications Aspirin (Ecotrin -) 81 mg PO DAILY [facility] Last Admin: 12/15/18 10:27 Dose: 81 mg Atorvastatin Calcium (Lipitor -) 20 mg PO HS [facility] Last Admin: 12/14/18 22:57 Dose: 20 mg Bupropion HCl (Wellbutrin Xl -) 150 mg PO DAILY [facility] Last Admin: 12/15/18 10:28 Dose: 150 mg Clopidogrel Bisulfate (Plavix -) 75 mg PO DAILY [facility] Last Admin: 12/15/18 10:27 Dose: 75 mg Hydralazine HCl (Apresoline -) 75 mg PO TID [facility] Last Admin: 12/15/18 06:07 Dose: 75 mg Metoprolol Succinate (Toprol Xl -) 300 mg PO DAILY [facility] Last Admin: 12/15/18 10:27 Dose: 300 mg Nifedipine (Procardia Xl -) 90 mg PO DAILY [facility] Last Admin: 12/15/18 10:28 Dose: 90 mg - Objective Vital Signs: Vital Signs Temperature 99.0 F 12/15/18 06:00 Pulse Rate 76 12/15/18 06:00 Respiratory Rate 20 12/15/18 09:00 Blood Pressure 150/74 12/15/18 06:00 O2 Sat by Pulse Oximetry (%) 100 12/15/18 09:00 Constitutional: Yes: Well Nourished, No Distress, Calm Cardiovascular: Yes: Regular Rate and Rhythm Respiratory: Yes: Regular Gastrointestinal: Yes: WNL Genitourinary: Yes: WNL Musculoskeletal: Yes: WNL Extremities: Yes: WNL Edema: No Peripheral Pulses WNL: Yes Neurological: Yes: Alert, Oriented Psychiatric: Yes: Alert, Oriented, Other (depressed) Labs: CBC, BMP 12/14/18 08:35 12/15/18 07:15 INR, PTT INR 1.00 (0.83-1.09) 12/09/18 08:51 Problem List - Problems (1) Uncontrolled hypertension Assessment/Plan: -Cardiology consult -Nephrology consult -IV hydralazine given in ER -BP mildly improved -Admit to Tele Code(s): I10 - ESSENTIAL (PRIMARY) HYPERTENSION (2) CKD (chronic kidney disease), stage III Assessment/Plan: -Nephrology consult -Monitor Cr Code(s): N18.3 - CHRONIC KIDNEY DISEASE, STAGE 3 (MODERATE) (3) Hypertensive urgency, malignant Code(s): I16.0 - HYPERTENSIVE URGENCY Assessment/Plan see problem list
[2018-12-15] MEDS ORDERED: hydrALAZINE HCL 50 MG TABLET (FP) PO SCH (11:39)
--- NOTE | 2018-12-15 13:58 | DS ---
Physical Examination Vital Signs: Vital Signs Temperature 99.0 F 12/15/18 06:00 Pulse Rate 76 12/15/18 06:00 Respiratory Rate 20 12/15/18 09:00 Blood Pressure 150/74 12/15/18 06:00 O2 Sat by Pulse Oximetry (%) 100 12/15/18 09:00 Findings/Remarks: The patient is a 58 year old male, with a significant PMH of CVA (last year with some residual memory loss), HTN, HLD, pre-diabetic, and CKD, who presents to the ED for evaluation of elevated blood pressure since earlier this morning. Patient is a poor historian, and sons at bedside provide history. Patient sons note he took all of his medications this morning (including Hydralazine and Metoprolol) 1.5 hour prior to arrival. His BP has remained elevated, and he reported feeling dizzy (denies room-spinning or feeling of loosing consciousness , notes he feels off). He denies any recent changes in his medications, or missing a medication dose. Patient was seen by his PCP yesterday, and his sons note his BP was normal yesterday (~130s systolic). He denies any other acute complaints. Denies fever, chills, chest pain, SOB, diarrhea, constipation, dysuria, hematuria, headache, numbness, tingling, vision changes, or blurred vision. Constitutional: Yes: Well Nourished, No Distress, Calm Cardiovascular: Yes: Regular Rate and Rhythm Respiratory: Yes: Regular Gastrointestinal: Yes: Normal Bowel Sounds, Soft Musculoskeletal: Yes: WNL Extremities: Yes: WNL Edema: No Peripheral Pulses WNL: Yes Neurological: Yes: Alert, Oriented Psychiatric: Yes: Alert, Oriented, Other (depressed) Labs: CBC, BMP 12/14/18 08:35 12/15/18 07:15 Discharge Summary Problems reviewed: Yes Reason For Visit: UNCONTROLLED HYPERTENSION,DIZZINESS Current Active Problems Dizziness (Acute) Uncontrolled hypertension (Acute) Laboratory Last Values WBC 9.2 K/mm3 (4.0-10.0) 12/14/18 08:35 RBC 4.85 M/mm3 (4.00-5.60) 12/14/18 08:35 Hgb 14.8 GM/dL (11.7-16.9) 12/14/18 08:35 Hct 44.5 % (35.4-49) 12/14/18 08:35 MCV 91.6 fl (80-96) 12/14/18 08:35 MCH 30.6 pg (25.7-33.7) 12/14/18 08:35 MCHC 33.4 g/dl (32.0-35.9) 12/14/18 08:35 RDW 13.6 % (11.9-15.9) 12/14/18 08:35 Plt Count 289 K/MM3 (134-434) 12/14/18 08:35 MPV 7.5 fl (7.5-11.1) 12/14/18 08:35 Absolute Neuts (auto) 4.2 K/mm3 (1.5-8.0) 12/09/18 08:51 Neutrophils % 71.4 % (42.8-82.8) 12/09/18 08:51 Lymphocytes % 17.7 % (8-40) D 12/09/18 08:51 Monocytes % 5.8 % (3.8-10.2) 12/09/18 08:51 Eosinophils % 3.8 % (0-4.5) 12/09/18 08:51 Basophils % 1.3 % (0-2.0) 12/09/18 08:51 Nucleated RBC % 0 % (0-0) 12/09/18 08:51 PT with INR 11.80 SEC (9.7-13.0) 12/09/18 08:51 INR 1.00 (0.83-1.09) 12/09/18 08:51 PTT (Actin FS) 35.5 SECONDS (25.2-36.5) 12/09/18 08:51 Sodium 140 mmol/L (136-145) 12/15/18 07:15 Potassium 3.7 mmol/L (3.5-5.1) 12/15/18 07:15 Chloride 108 mmol/L (98-107) H 12/15/18 07:15 Carbon Dioxide 25 mmol/L (21-32) 12/15/18 07:15 Anion Gap 8 MMOL/L (8-16) 12/15/18 07:15 BUN 47.8 mg/dL (7-18) H 12/15/18 07:15 Creatinine 2.2 mg/dL (0.55-1.3) H 12/15/18 07:15 Est GFR (CKD-EPI)AfAm 37.42 12/15/18 07:15 Est GFR (CKD-EPI)NonAf 32.29 12/15/18 07:15 Random Glucose 104 mg/dL (74-106) 12/15/18 07:15 Calcium 8.9 mg/dL (8.5-10.1) 12/15/18 07:15 Magnesium 2.2 mg/dL (1.8-2.4) 12/09/18 08:51 Total Bilirubin 0.7 mg/dL (0.2-1) 12/14/18 08:35 AST 13 U/L (15-37) L 12/14/18 08:35 ALT 38 U/L (13-61) 12/14/18 08:35 Alkaline Phosphatase 79 U/L (45-117) 12/14/18 08:35 Creatine Kinase 96 U/L (26-308) 12/09/18 11:52 Troponin I 0.03 ng/ml (0.00-0.05) 12/09/18 11:52 Total Protein 7.6 g/dl (6.4-8.2) 12/14/18 08:35 Albumin 3.8 g/dl (3.4-5.0) 12/14/18 08:35 Vitamin B12 1384 pg/ml (193-986) H 12/11/18 06:25 TSH 1.49 uIU/ml (0.358-3.74) D 12/11/18 06:25 Urine Color Yellow 12/09/18 10:03 Urine Appearance Clear 12/09/18 10:03 Urine pH 5.0 (5.0-8.0) D 12/09/18 10:03 Ur Specific [place] 1.020 (1.010-1.035) 12/09/18 10:03 Urine Protein Negative (NEGATIVE) 12/09/18 10:03 Urine Glucose (UA) Negative (NEGATIVE) 12/09/18 10:03 Urine Ketones Negative (NEGATIVE) 12/09/18 10:03 Urine Blood Negative (NEGATIVE) 12/09/18 10:03 Urine Nitrite Negative (NEGATIVE) 12/09/18 10:03 Urine Bilirubin Negative (NEGATIVE) 12/09/18 10:03 Urine Urobilinogen 0.2 mg/dL (0.2-1.0) 12/09/18 10:03 Ur Leukocyte Esterase Negative (NEGATIVE) 12/09/18 10:03 RPR Titer Nonreactive (NONREACTIVE) 12/11/18 06:35 Vital Signs Temp 99.0 F 12/15/18 06:00 Pulse 76 12/15/18 06:00 Resp 20 12/15/18 09:00 BP 150/74 12/15/18 06:00 Pulse Ox 100 12/15/18 09:00 Intake & Output 12/14/18 12/15/18 12/15/18 23:59 11:59 23:59 Intake Total 0 200 Balance 0 200 Weight 94.619 kg Intake: IV 0 0 saline lock 0 0 Oral 200 Other: Voiding Method Toilet Toilet # Unmeasured Voids Void 2 2 Weight Measurement Method Standing Scale Condition: Stable - Instructions Referrals: Raúl Monroe MD [Staff Physician] - Gabriel Crawley MD [Staff Physician] - Disposition: HOME - Home Medications Comprehensive Discharge Medication List: Ambulatory Orders Aspirin [ASA -] 81 mg PO DAILY 06/10/18 Atorvastatin Ca [Lipitor] 20 mg PO HS 06/10/18 Cholecalciferol (Vitamin D3) [Vitamin D -] 125 mg PO DAILY 06/10/18 Clopidogrel Bisulfate [Plavix] 75 mg PO DAILY 06/10/18 Aspirin Coated [Ecotrin -] 81 mg PO DAILY tablet.ec 12/15/18 Atorvastatin Ca [Lipitor] 20 mg PO HS tablet 12/15/18 Bupropion HCl [Bupropion Xl] 300 mg PO DAILY #30 tab.er.24h 12/15/18 Clopidogrel Bisulfate [Plavix -] 75 mg PO DAILY tablet 12/15/18 Hydralazine HCl 100 mg PO TID #90 tablet 12/15/18 Metoprolol Succinate [Toprol XL -] 300 mg PO DAILY #90 tab.sr.24h 12/15/18 Nifedipine ER [Procardia XL -] 90 mg PO DAILY #30 tab.er.24 12/15/18 Prescription Drug Monitoring Program (I-STOP) results: I-STOP reviewed and no issues identified
--- NOTE | 2018-12-15 13:59 | PN ---
Progress Note, Physician History of Present Illness: Pt seen and examined at bedside. He is awake and alert. He is asking to go home. He denies chest pain or palpitations. - Current Medication List Current Medications: Active Medications Aspirin (Ecotrin -) 81 mg PO DAILY [facility] Last Admin: 12/15/18 10:27 Dose: 81 mg Atorvastatin Calcium (Lipitor -) 20 mg PO HS [facility] Last Admin: 12/14/18 22:57 Dose: 20 mg Bupropion HCl (Wellbutrin Xl -) 300 mg PO DAILY [facility] Clopidogrel Bisulfate (Plavix -) 75 mg PO DAILY [facility] Last Admin: 12/15/18 10:27 Dose: 75 mg Hydralazine HCl (Apresoline -) 100 mg PO TID [facility] Metoprolol Succinate (Toprol Xl -) 300 mg PO DAILY [facility] Last Admin: 12/15/18 10:27 Dose: 300 mg Nifedipine (Procardia Xl -) 90 mg PO DAILY [facility] Last Admin: 12/15/18 10:28 Dose: 90 mg - Objective Vital Signs: Vital Signs Temperature 99.0 F 12/15/18 06:00 Pulse Rate 76 12/15/18 06:00 Respiratory Rate 20 12/15/18 09:00 Blood Pressure 150/74 12/15/18 06:00 O2 Sat by Pulse Oximetry (%) 100 12/15/18 09:00 Constitutional: Yes: Calm Eyes: Yes: Conjunctiva Clear HENT: Yes: Atraumatic Neck: Yes: Supple Cardiovascular: Yes: S1, S2 Respiratory: Yes: CTA Bilaterally Gastrointestinal: Yes: Normal Bowel Sounds, Soft Genitourinary: Yes: WNL Musculoskeletal: Yes: WNL Edema: No Neurological: Yes: Oriented Psychiatric: Yes: Oriented Labs: CBC, BMP 12/14/18 08:35 12/15/18 07:15 INR, PTT INR 1.00 (0.83-1.09) 12/09/18 08:51 Problem List - Problems (1) Dizziness Code(s): R42 - DIZZINESS AND GIDDINESS (2) Uncontrolled hypertension Code(s): I10 - ESSENTIAL (PRIMARY) HYPERTENSION (3) CKD (chronic kidney disease), stage III Code(s): N18.3 - CHRONIC KIDNEY DISEASE, STAGE 3 (MODERATE) Assessment/Plan Current Medications Generic Name Dose Route Start Last Admin Trade Name Freq PRN Reason Stop Dose Admin Aspirin 81 mg 12/10/18 10:00 12/15/18 10:27 Ecotrin - PO 81 mg DAILY [facility] Administration Atorvastatin Calcium 20 mg 12/09/18 22:00 12/14/18 22:57 Lipitor - PO 20 mg HS [facility] Administration Bupropion HCl 300 mg 12/15/18 11:39 Wellbutrin Xl - PO DAILY [facility] Clopidogrel Bisulfate 75 mg 12/10/18 10:00 12/15/18 10:27 Plavix - PO 75 mg DAILY [facility] Administration Hydralazine HCl 100 mg 12/15/18 11:39 Apresoline - PO TID [facility] Metoprolol Succinate 300 mg 12/11/18 10:00 12/15/18 10:27 Toprol Xl - PO 300 mg DAILY [facility] Administration Nifedipine 90 mg 12/10/18 10:00 12/15/18 10:28 Procardia Xl - PO 90 mg DAILY [facility] Administration Impression 1. CKD 2. HTN 3. HLD 4. 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
[2018-12-15 15:32] VITALS: BP 140/71; TEMP 98.1
== END 2018-12-15 16:52 | disposition home or self-care (01) | DRG 305 ==
LOC: JER 08:12 → JERBED 10:37 → J2W 23:01 → J4W 12-11 20:20
PROVIDERS: ADMIT Family Medicine; ATTEND Family Medicine
DX: I16.0 Hypertensive urgency (principal); I67.4 Hypertensive encephalopathy; I12.9 Hypertensive chronic kidney disease with stage 1 through stage 4 chronic kidney disease, or unspecified chronic kidney disease; E11.22 Type 2 diabetes mellitus with diabetic chronic kidney disease; N18.3 Chronic kidney disease, stage 3 (moderate); F32.9 Major depressive disorder, single episode, unspecified; E78.5 Hyperlipidemia, unspecified; Z86.73 Personal history of transient ischemic attack (TIA), and cerebral infarction without residual deficits
CPT/HCPCS: 36415; 70450-TC; 70551-TC; 71045-TC-FY; 80048; 80053; 81003; 82550; 82607; 83735; 84443; 84484; 85025; 85027; 85610; 85730; 86593; 93005; 93010; 93880-TC; 97116-GP; 97161-GP; 99284-25

== ENCOUNTER 2018-12-16 14:25 | Inpatient (IN) | payer OTHER ==
--- NOTE | 2018-12-16 15:03 | PDOC ---
Rapid Medical Evaluation Time Seen by Provider: 12/16/18 14:50 Medical Evaluation: Allergies Allergy/AdvReac Type Severity Reaction Status Date / Time No Known Allergies Allergy Verified 12/09/18 08:25 12/16/18 15:00 CC: sent by PMD for admission PE: Denies SI/HI. Did not answer if felt world would be better off if he were not in it. +CAH. +PI Orders: labs, urine, CTH Patient will proceed to ER for further evaluation. Discharge Disposition - Diagnosis Depression - Referrals - Patient Instructions - Post Discharge Activity
[2018-12-16 16:54] LABS: BASO % 1.1 % (0-2.0); EOS % 2.2 % (0-4.5); HEMATOCRIT 41.9 % (35.4-49); HEMOGLOBIN 13.8 GM/dL (11.7-16.9); LYMPH % 22.3 % (8-40); MCH 30.4 pg (25.7-33.7); MCHC 32.9 g/dl (32.0-35.9); MEAN CELL VOLUME 92.4 fl (80-96); MEAN PLT VOLUME 7.7 fl (7.5-11.1); MONO % 10.2 % (3.8-10.2); NEUT % 64.2 % (42.8-82.8); PLATELET COUNT 300 K/MM3 (134-434); RBC 4.54 M/mm3 (4.00-5.60); RDW 13.3 % (11.9-15.9); WHITE BLOOD COUNT 7.2 K/mm3 (4.0-10.0)
--- NOTE | 2018-12-16 17:06 | PDOC ---
History of Present Illness - General Chief Complaint: Psychiatric Stated Complaint: DEPRESSION Time Seen by Provider: 12/16/18 14:50 History Source: Patient, Family (Brother and son present at bedside.), Old Records Exam Limitations: No Limitations - History of Present Illness Initial Comments: HPI: 58 y/o male presenting to [facility] ER from the clinic of Dr. Villareal for evaluation of auditory and visual hallucinations. Pt was discharged from this facility yesterday for hypertension. On the Friday (13 Dec 2018) of his hospitalization , the pt started to report seeing people outside of his fourth floor window. He was also hearing people discuss plans to kill both the pt and his family. He was evaluated by Dr. Ridley while inpatient. Plan was to continue his previously prescribed Wellbutrin. Of note, this medication dose was increased on Friday (11 Dec 2018) by his neurologist, Dr. Pedro. Pt was walking to work today when he again saw a few of the people from this weekend. He again overheard plans to kill him and his family. Pt denies similar experiences in the past. Denies receiving instructions from the hallucinations. Denies SI or HI. Denies outstanding gambling debts, warrants , or court appearances. Son reported to ED Attending that the pt was not taking his prescribed Wellbutrin before the recent hospitalization. 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 [employer] Medical Hx: - HTN - CVA (2018) - CKD Review of Systems: In addition to that documented in the HPI above, the additional ROS was obtained : Constitutional- Denies fevers or chills Head- Denies blurry vision or tunnel vision ENMT- Denies sore throat CV- Denies chest pain Resp- Denies SOB GI- Denies vomiting or diarrhea - Denies painful urination MSK- Denies recent trauma Skin- Denies new rashes Neuro- Denies new numbness or tingling or weakness Endocrine- Denies polyuria Heme- Denies bleeding or bruising Physical Examination: Constitutional- Nontoxic adult male in no acute distress or obvious discomfort. Found semi-fowlers on hospital bed. Answered all questions appropriately and completely. Head- Normocephalic. No obvious external signs of trauma. Eyes- Pupils 3mm and PERRL bilaterally. Sclerae white. Ears- Hearing grossly intact. Cardiovascular / Chest- Regular rate and regular rhythm. No murmur, rubs, clicks , or gallops. Peripheral pulses- radial pulses full. Respiratory- Breathing unlabored. Equal chest rise and fall. Clear to auscultation bilaterally. No stridor, no wheezing, no rhonchi. Gastrointestinal- abdomen is soft, non-tender, non-distended. Neuro- Alert and oriented x4. Moving all four extremities spontaneously. Skin- Warm, dry, and intact. Psych- Affect- flat. Mood- unable to determine. Dressed and groomed appropriately. Speech non-pressed. Did not maintain appropriate eye contact. Insight appears intact. MDM: *Reviewed vital signs, nursing notes, and prior visit documentation (if available). 58 y/o male presenting with new onset auditory and visual hallucinations after recent hospitalization and increased dose versus initiation of high dose of Wellbutrin. Afebrile. Vitals unremarkable for hypotension or tachycardia. Physical exam as described above. Suspect likely medication induced symptoms. Medical screening labs ordered. ED Attending discussed case with AMRIK Hercules. Will admit pt to Dr. Ngo's service. Consult placed for Dr. Ridley. CMP revealed elevated Cr above baseline. Suspect RENAY overlying CKD. Continue to suspect symptoms are secondary to Wellbutrin. Serum level likely higher than anticipated with decreased renal excretion. Initiated LR IVF at maintenance dose. Utox and alcohol level pending at time of admission. Haresh Burgess M.D., PGY2 Emergency Medicine Resident Past History - Past Medical History Allergies/Adverse Reactions: Allergies Allergy/AdvReac Type Severity Reaction Status Date / Time No Known Allergies Allergy Verified 12/16/18 15:08 Home Medications: Ambulatory Orders Aspirin [ASA -] 81 mg PO DAILY 06/10/18 Atorvastatin Ca [Lipitor] 20 mg PO HS 06/10/18 Cholecalciferol (Vitamin D3) [Vitamin D -] 125 mg PO DAILY 06/10/18 Clopidogrel Bisulfate [Plavix] 75 mg PO DAILY 06/10/18 Aspirin Coated [Ecotrin -] 81 mg PO DAILY tablet.ec 12/15/18 Atorvastatin Ca [Lipitor] 20 mg PO HS tablet 12/15/18 Bupropion HCl [Bupropion Xl] 300 mg PO DAILY #30 tab.er.24h 12/15/18 Clopidogrel Bisulfate [Plavix -] 75 mg PO DAILY tablet 12/15/18 Hydralazine HCl 100 mg PO TID #90 tablet 12/15/18 Metoprolol Succinate [Toprol XL -] 300 mg PO DAILY #90 tab.sr.24h 12/15/18 Nifedipine ER [Procardia XL -] 90 mg PO DAILY #30 tab.er.24 12/15/18 Anemia: No Asthma: No Cancer: No Cardiac Disorders: No CVA: Yes (2017) COPD: No CHF: No Dementia: No Diabetes: No (prediabetes) GI Disorders: No Disorders: No HTN: Yes Hypercholesterolemia: Yes Liver Disease: No Seizures: No Thyroid Disease: No - Surgical History Cholecystectomy: No - Immunization History Immunization Up to Date: Yes (FLU ) - Psycho Social/Smoking Cessation Hx Smoking History: Never smoked Have you smoked in the past 12 months: No Information on smoking cessation initiated: No Hx Alcohol Use: No Drug/Substance Use Hx: No Substance Use Type: None Hx Substance Use Treatment: No *Physical Exam - Vital Signs Last Vital Signs Temp Pulse Resp BP Pulse Ox 98.4 F 76 18 110/57 L 99 12/16/18 15:01 12/16/18 15:01 12/16/18 15:01 12/16/18 15:01 12/16/18 15:01 ED Treatment Course - LABORATORY CBC & Chemistry Diagram: 12/16/18 16:36 12/16/18 16:36 - ADDITIONAL ORDERS Additional order review: 12/16/18 16:36 RBC 4.54 MCV 92.4 MCHC 32.9 RDW 13.3 MPV 7.7 Neutrophils % 64.2 Lymphocytes % 22.3 D Monocytes % 10.2 Eosinophils % 2.2 Basophils % 1.1 Discharge - Discharge Information Problems reviewed: Yes Clinical Impression/Diagnosis: Auditory hallucination, Visual hallucination, Flat affect Adverse drug reaction Qualifiers: Encounter type: initial encounter Qualified Code(s): T50.905A - Adverse effect of unspecified drugs, medicaments and biological substances, initial encounter Condition: Stable - Admission Yes - Follow up/Referral - Patient Discharge Instructions - Post Discharge Activity
[2018-12-16 17:22] LABS: ALBUMIN 3.3 g/dl (3.4-5.0); ALK PHOS 68 U/L (45-117); ANION GAP 9 MMOL/L (8-16); BILIRUBIN,TOTAL 0.5 mg/dL (0.2-1); BLOOD UREA NITROGEN 54.8 mg/dL (7-18); CALCIUM 8.8 mg/dL (8.5-10.1); CHLORIDE 106 mmol/L (98-107); CO2 25 mmol/L (21-32); CREATININE 2.9 mg/dL (0.55-1.3); GLUCOSE,RANDOM 109 mg/dL (74-106); PHOSPHOROUS 3.3 mg/dL (2.5-4.9); POTASSIUM 3.6 mmol/L (3.5-5.1); SGOT/AST 15 U/L (15-37); SGPT/ALT 35 U/L (13-61); SODIUM 140 mmol/L (136-145); TOT PROT 7.1 g/dl (6.4-8.2)
--- NOTE | 2018-12-16 17:27 | PDOC ---
Attending Attestation - Resident Resident Name: BishopHaresh - ED Attending Attestation I have performed the following: I have examined & evaluated the patient, The case was reviewed & discussed with the resident, I agree w/resident's findings & plan, Exceptions are as noted - HPI HPI: 12/16/18 17:21 58yo male with hx of htn with hallucinations since friday. States auditory and visual hallucinations. Pt denies si/hi. Pt with depression. Per the son, even though wellbutrin was rx at home he wasn't taking he meds, welbutrin started on last admission and then increased from 150-300mg. 2 days after the increase, pt with with hallucinations. No SI/HI. Pt with flat affect. Denies all other complaints. Pt was dc yesterday from the hospital with uncontrolled htn. - Physicial Exam PE: 12/16/18 17:26 Gen: aaox3, flat affect heart: +s1s2 reg lungs: cta b/l abd:soft, nt/nd +bs ext: no c/c/e psych: no si/hi, +auditory and visual hallucinations - Medical Decision Making 12/16/18 17:28 a/p: 58yo male with new onset of hallucinations - visual/auditory hallucinations -pt with new start of welbutrin, ? adverse drug reaction -pt with depression, poss consider changing antidepressant -pt without somatic complaints -recently had ct head -will send labs, ekg -will discuss with Dionna 12/16/18 17:32 case discussed with Marcelo Hercules -poss drug reaction discussed -consult in for psych to eval -pt also with RENAY on CKD -pt will need admission -will start gentle ivf hydration Heart Score/ECG Review - ECG Intrepretation Comment:: 12/16/18 17:33 sinus at 65, L axis, lvh, t wave inversions lateral leads, and lead III, no acute st changes
[2018-12-16] MEDS: LACTATED RINGERS SOLUTION 1,000 ML/1,000 ML INFUS.BAG IV SCH (17:47)
[2018-12-16 17:49] LABS: URINE APPEARANCE CLEAR; URINE BILIRUBIN NEGATIVE (NEGATIVE); URINE COLOR YELLOW; URINE GLUCOSE (UA) NEGATIVE (NEGATIVE); URINE KETONE NEGATIVE (NEGATIVE); URINE LEUK ESTERASE NEGATIVE (NEGATIVE); URINE NITRITE NEGATIVE (NEGATIVE); URINE PROTEIN NEGATIVE (NEGATIVE); URINE UROBILINOGEN 0.2 mg/dL (0.2-1.0)
[2018-12-16 17:58] LABS: COCAINE, UR NEGATIVE ng/ml (CUTOFF=300); METHADONE, UR NEGATIVE ng/ml (CUTOFF=300); OPIATES, URI NEGATIVE ng/ml (CUTOFF=300); PHENCYCLIDINE,URINE NEGATIVE ng/ml (CUTOFF=25); URINE AMPHETAMINES NEGATIVE ng/ml (CUTOFF=500); URINE BARBITURATES NEGATIVE ng/ml (CUTOFF=200); URINE BENZODIAZEPINES NEGATIVE ng/ml (CUTOFF=200)
[2018-12-16] MEDS: ASPIRIN 81 MG CHEWABLE TABLETS PO SCH (19:40)
[2018-12-16] MEDS: hydrALAZINE HCL 50 MG TABLET (FP) PO SCH (21:56)
[2018-12-16] MEDS: ATORVASTATIN CA 20 MG TABLET (FP) PO SCH (21:56)
--- NOTE | 2018-12-16 22:18 | PN ---
Mental Health Exam - Mental Status Exam Alert and Oriented to: Time, Place, Person Cognitive Function: Grossly Intact Patient Appearance: Well Groomed (overweight, hyperviggilat , exothalamic eyes. ) Mood: Apathetic, Anxious, Apprehensive Affect: Blunted Patient Behavior: Suspicious, Distractible Speech Pattern: Perseverating, Tangential Voice Loudness: Mildly Soft/Quiet Thought Process: Tangential Thought Disorder: Paranoid Ideation Hallucinations: Auditory ("People are trying to kill me, i can hear it ") Suicidal Ideation: None Homicidal Ideation: None Insight/Judgement: Fair Sleep: Fair Appetite: Fair Muscle strength/Tone: Normal Gait/Station: Deferred
--- NOTE | 2018-12-16 22:26 | PN ---
Progress Note (short form) - Note Progress Note: this is a 89 yo male with AH since the weekend, denies having a psychiatric history. Met patient in room, sitting up in bed hypervigillant, anxious affect. Client believes that the altered mental status is improving on its own. He currently denies SI, HI, or VH. The auditory hallucinations are periodic but adding to his fear and anxiety. Problem List - Problems (1) Visual hallucination Assessment/Plan: Client may have seroquel 25 mg po prn, bid, for hallucination. spoke with RNon floor, Observe on Constant observation for 12 hours then re evaluate. unlikely wellbutrin has cause to Hearing voices. Code(s): R44.1 - VISUAL HALLUCINATIONS
[2018-12-17] MEDS: LACTATED RINGERS SOLUTION 1,000 ML/1,000 ML INFUS.BAG IV SCH ×2 (00:45→21:27)
[2018-12-17] MEDS: MELATONIN 5 MG TABLETS PO PRN (00:56)
[2018-12-17] MEDS: hydrALAZINE HCL 50 MG TABLET (FP) PO SCH ×3 (06:10→21:27)
--- NOTE | 2018-12-17 09:22 | HP ---
Admitting History and Physical - Primary Care Physician PCP: Kaur Villareal - Admission Chief Complaint: Auditory Hallucinations History of Present Illness: Patient is a 58 y/o male with past medical history of HTN and depression. Patient was sent from PCP office to [facility] ER for evaluation of auditory and visual hallucinations. Patient states that he feels people are plotting to kill him and when he was recently admitted he saw people outside the window on the fourth floor that were plotting to kill him. Patient was prescribed Wellbutrin while in patient by Dr Ridley. On examination today patient denies SI/HI. 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 Cardiovascular: Yes: HTN Renal/: Yes: Renal Inusuff Psych: Yes: Depression - Smoking History Smoking history: Never smoked Have you smoked in the past 12 months: No - Alcohol/Substance Use Hx Alcohol Use: No - Social History Usual Living Arrangement: Yes: With Spouse ADL: Independent History of Recent Travel: No Home Medications - Allergies Allergies/Adverse Reactions: Allergies Allergy/AdvReac Type Severity Reaction Status Date / Time No Known Allergies Allergy Verified 12/16/18 15:08 - Home Medications Home Medications: Ambulatory Orders Aspirin [ASA -] 81 mg PO DAILY 06/10/18 Cholecalciferol (Vitamin D3) [Vitamin D -] 125 mg PO DAILY 06/10/18 Clopidogrel Bisulfate [Plavix] 75 mg PO DAILY 06/10/18 Atorvastatin Ca [Lipitor] 20 mg PO HS tablet 12/15/18 Bupropion HCl [Bupropion Xl] 300 mg PO DAILY #30 tab.er.24h 12/15/18 Hydralazine HCl 100 mg PO TID #90 tablet 12/15/18 Metoprolol Succinate [Toprol XL -] 300 mg PO DAILY #90 tab.sr.24h 12/15/18 Nifedipine ER [Procardia XL -] 90 mg PO DAILY #30 tab.er.24 12/15/18 Review of Systems - Review of Systems Constitutional: reports: No Symptoms Eyes: reports: No Symptoms HENT: reports: No Symptoms Neck: reports: No Symptoms Cardiovascular: reports: No Symptoms Respiratory: reports: No Symptoms Gastrointestinal: reports: No Symptoms Genitourinary: reports: No Symptoms Breasts: reports: No Symptoms Reported Musculoskeletal: reports: No Symptoms Integumentary: reports: No Symptoms Neurological: reports: No Symptoms Endocrine: reports: No Symptoms Hematology/Lymphatic: reports: No Symptoms Psychiatric: reports: Depression, Hallucinations, Paranoia Physical Examination Vital Signs: Vital Signs Temperature 98.4 F 12/17/18 07:00 Pulse Rate 80 12/17/18 07:00 Respiratory Rate 20 12/17/18 07:00 Blood Pressure 158/78 12/17/18 07:00 O2 Sat by Pulse Oximetry (%) 97 12/16/18 21:00 Constitutional: Yes: No Distress, Calm Eyes: Yes: Conjunctiva Clear HENT: Yes: Atraumatic Neck: Yes: Supple Cardiovascular: Yes: Regular Rate and Rhythm Respiratory: Yes: Regular, CTA Bilaterally Gastrointestinal: Yes: Normal Bowel Sounds, Soft Musculoskeletal: Yes: WNL Extremities: Yes: WNL Edema: No Neurological: Yes: Alert, Oriented Psychiatric: Yes: Alert, Oriented, Other (flat affect) Labs: CBC, BMP 12/16/18 16:36 12/16/18 16:36 Problem List - Problems (1) Auditory hallucination Assessment/Plan: -Psych consult -safety observation Code(s): R44.0 - AUDITORY HALLUCINATIONS (2) CKD (chronic kidney disease), stage III Assessment/Plan: -Renal consult -BUN/Cr 54.8/2.9 -monitor renal function daily Code(s): N18.3 - CHRONIC KIDNEY DISEASE, STAGE 3 (MODERATE) (3) Hypertension Assessment/Plan: -Hydralazine, Metoprolol, Nifedipine -low Na diet Code(s): I10 - ESSENTIAL (PRIMARY) HYPERTENSION Qualifiers: Hypertension type: unspecified Qualified Code(s): I10 - Essential (primary ) hypertension Assessment/Plan see problem list dvt ppx
[2018-12-17] MEDS ORDERED: PT OWN MED DRAWER 7, Y5N ONE ×2 (09:57→10:25)
[2018-12-17] MEDS: CLOPIDOGREL BISULFATE 75 MG TABLET (FP) PO SCH (09:58)
[2018-12-17] MEDS: ASPIRIN 81 MG CHEWABLE TABLETS PO SCH (09:58)
[2018-12-17] MEDS: NIFEdipine E.R. 90 MG TABLET (FP) PO SCH (09:58)
[2018-12-17] MEDS: ENOXAPARIN NA (PORCINE) 40 MG/0.4 ML DISP.SYRIN SQ SCH (09:58)
[2018-12-17] MEDS: CHOLECALCIFEROL (VIT D3) 400 UNIT (10 MCG) TABLET PO SCH (11:22)
--- NOTE | 2018-12-17 12:15 | PN ---
Mental Health Exam - Mental Status Exam Alert and Oriented to: Time, Place, Person Cognitive Function: Good Patient Appearance: Well Groomed Mood: Hopeful Affect: Appropriate Patient Behavior: Cooperative Speech Pattern: Clear Voice Loudness: Normal Thought Process: Intact Hallucinations: None Suicidal Ideation: None Homicidal Ideation: None Insight/Judgement: Fair Sleep: Well Appetite: Good Muscle strength/Tone: Normal Gait/Station: Normal Additional Comments: met client this am sitting at bedside,. Client is more clear after a good night rest. Denies any perceptual changes, denies SI, HI AH or VH. HE is calm demenour. may come off constant obsrvation from psychiatry standpoint.
--- NOTE | 2018-12-17 15:08 | EKG ---
Test Reason : Blood Pressure : / mmHG Vent. Rate : 065 BPM Atrial Rate : 065 BPM P-R Int : 194 ms QRS Dur : 122 ms QT Int : 444 ms P-R-T Axes : 068 -35 -24 degrees QTc Int : 461 ms NORMAL SINUS RHYTHM POSSIBLE LEFT ATRIAL ENLARGEMENT LEFT AXIS DEVIATION LEFT VENTRICULAR HYPERTROPHY WITH QRS WIDENING NONSPECIFIC T WAVE ABNORMALITY ABNORMAL ECG WHEN COMPARED WITH ECG OF 09-DEC-2018 09:00, T WAVE INVERSION MORE EVIDENT IN LATERAL LEADS Confirmed by SERGE CHONG MD ([id number]) on 12/17/2018 3:08:32 PM Referred By: Confirmed By:SERGE CHONG MD
--- NOTE | 2018-12-17 16:24 | CONSULT ---
Consult Consult Specialty:: Nephrology Reason for Consultation:: CKD - History of Present Illness Chief Complaint: hallucinations History of Present Illness: Pt is a 58 year old male with pmhx of ckd, depression and HTN. He was discharged a few days ago. He was sent back to the hospital for hallucinations. He currently denies them however he is on a one to one sit. He denies suicidal or homicidal ideation. 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 Cardio/Vascular: Yes: HTN Renal/: Yes: Renal Inusuff Psych: Yes: Depression - Alcohol/Substance Use Hx Alcohol Use: No - Smoking History Smoking history: Never smoked Have you smoked in the past 12 months: No - Social History Usual Living Arrangement: With Spouse ADL: Independent History of Recent Travel: No Home Medications - Allergies Allergies/Adverse Reactions: Allergies Allergy/AdvReac Type Severity Reaction Status Date / Time No Known Allergies Allergy Verified 12/16/18 15:08 - Home Medications Home Medications: Ambulatory Orders Aspirin [ASA -] 81 mg PO DAILY 06/10/18 Cholecalciferol (Vitamin D3) [Vitamin D -] 125 mg PO DAILY 06/10/18 Clopidogrel Bisulfate [Plavix] 75 mg PO DAILY 06/10/18 Atorvastatin Ca [Lipitor] 20 mg PO HS tablet 12/15/18 Bupropion HCl [Bupropion Xl] 300 mg PO DAILY #30 tab.er.24h 12/15/18 Hydralazine HCl 100 mg PO TID #90 tablet 12/15/18 Metoprolol Succinate [Toprol XL -] 300 mg PO DAILY #90 tab.sr.24h 12/15/18 Nifedipine ER [Procardia XL -] 90 mg PO DAILY #30 tab.er.24 12/15/18 Review of Systems - Review of Systems Constitutional: reports: No Symptoms Eyes: reports: No Symptoms HENT: reports: No Symptoms Neck: reports: No Symptoms Cardiovascular: reports: No Symptoms Psychiatric: reports: Hallucinations Physical Exam Vital Signs: Vital Signs Temperature 98.5 F 12/17/18 15:17 Pulse Rate 78 12/17/18 15:17 Respiratory Rate 18 12/17/18 15:17 Blood Pressure 153/79 12/17/18 15:17 O2 Sat by Pulse Oximetry (%) 97 12/16/18 21:00 Constitutional: Yes: Calm Eyes: Yes: Conjunctiva Clear HENT: Yes: Atraumatic Cardiovascular: Yes: S1, S2 Respiratory: Yes: CTA Bilaterally Gastrointestinal: Yes: Normal Bowel Sounds, Soft Renal/: Yes: WNL Edema: No Neurological: Yes: Oriented Psychiatric: Yes: Oriented Labs: CBC, BMP 12/16/18 16:36 12/16/18 16:36 Assessment/Plan Current Medications Generic Name Dose Route Start Last Admin Trade Name Freq PRN Reason Stop Dose Admin Aspirin 81 mg 12/16/18 18:00 12/17/18 09:58 Asa - PO 81 mg DAILY SYMONE Administration Atorvastatin Calcium 20 mg 12/16/18 22:00 12/16/18 21:56 Lipitor - PO 20 mg HS SYMONE Administration Cholecalciferol 400 unit 12/17/18 10:00 12/17/18 11:22 Vitamin D3 - PO 400 unit DAILY SYMONE Administration Clopidogrel Bisulfate 75 mg 12/17/18 10:00 12/17/18 09:58 Plavix - PO 75 mg DAILY SYMONE Administration Enoxaparin Sodium 40 mg 12/17/18 10:00 12/17/18 09:58 Lovenox - SQ 40 mg DAILY SYMONE Administration Hydralazine HCl 100 mg 12/16/18 22:00 12/17/18 13:20 Apresoline - PO 100 mg TID SYMONE Administration Lactated Ringer's 1,000 ml in 1,000 mls @ 125 mls/hr 12/16/18 17:45 12/17/18 00:45 Lactated Ringers Solution IV 125 mls/hr ASDIR SYMONE Administration Melatonin 5 mg 12/17/18 00:36 12/17/18 00:56 Melatonin PO 5 mg HS PRN Administration INSOMNIA Metoprolol Succinate 300 mg 12/17/18 10:00 12/17/18 09:58 Toprol Xl - PO 300 mg DAILY SYMONE Administration Nifedipine 90 mg 12/17/18 10:00 12/17/18 09:58 Procardia Xl - PO 90 mg DAILY SYMONE Administration Impression 1. CKD 2. HTN 3. HLD 4. CVA 5. hallucinations Plan - check labs in am - monitor renal function - monitor bp - psych eval - cont one to one sit
[2018-12-17] MEDS: ATORVASTATIN CA 20 MG TABLET (FP) PO SCH (21:28)
[2018-12-18] MEDS: MELATONIN 5 MG TABLETS PO PRN (03:45)
[2018-12-18] MEDS: hydrALAZINE HCL 50 MG TABLET (FP) PO SCH ×3 (05:53→21:06)
[2018-12-18 08:04] LABS: BASO % 1.4 % (0-2.0); EOS % 5.1 % (0-4.5); HEMATOCRIT 41.2 % (35.4-49); HEMOGLOBIN 13.8 GM/dL (11.7-16.9); LYMPH % 25.5 % (8-40); MCH 30.5 pg (25.7-33.7); MCHC 33.4 g/dl (32.0-35.9); MEAN CELL VOLUME 91.3 fl (80-96); MEAN PLT VOLUME 7.5 fl (7.5-11.1); MONO % 7.5 % (3.8-10.2); NEUT % 60.5 % (42.8-82.8); PLATELET COUNT 315 K/MM3 (134-434); RBC 4.51 M/mm3 (4.00-5.60); RDW 13.3 % (11.9-15.9)
[2018-12-18 08:47] LABS: ALBUMIN 3.4 g/dl (3.4-5.0); BILIRUBIN,TOTAL 0.6 mg/dL (0.2-1); BLOOD UREA NITROGEN 29.2 mg/dL (7-18); CALCIUM 9.4 mg/dL (8.5-10.1); CREATININE 1.8 mg/dL (0.55-1.3); POTASSIUM 3.9 mmol/L (3.5-5.1); TOT PROT 7.5 g/dl (6.4-8.2)
[2018-12-18] MEDS ORDERED: PT OWN MED DRAWER 7, Y5N ONE (09:28)
[2018-12-18] MEDS: ENOXAPARIN NA (PORCINE) 40 MG/0.4 ML DISP.SYRIN SQ SCH (09:29)
[2018-12-18] MEDS: ASPIRIN 81 MG CHEWABLE TABLETS PO SCH (09:36)
[2018-12-18] MEDS: CHOLECALCIFEROL (VIT D3) 400 UNIT (10 MCG) TABLET PO SCH (09:36)
[2018-12-18] MEDS: CLOPIDOGREL BISULFATE 75 MG TABLET (FP) PO SCH (09:36)
[2018-12-18] MEDS: NIFEdipine E.R. 90 MG TABLET (FP) PO SCH (09:36)
--- NOTE | 2018-12-18 11:21 | PN ---
Progress Note, Physician Chief Complaint: AWAKE BLUNT AFFECT DENIES SUICIDAL THOUGHTS TODAY BUT APPEARS LABILE - Current Medication List Current Medications: Active Medications Aspirin (Asa -) 81 mg PO DAILY [facility] Last Admin: 12/18/18 09:36 Dose: 81 mg Atorvastatin Calcium (Lipitor -) 20 mg PO HS [facility] Last Admin: 12/17/18 21:28 Dose: 20 mg Cholecalciferol (Vitamin D3 -) 400 unit PO DAILY [facility] Last Admin: 12/18/18 09:36 Dose: 400 unit Clopidogrel Bisulfate (Plavix -) 75 mg PO DAILY [facility] Last Admin: 12/18/18 09:36 Dose: 75 mg Enoxaparin Sodium (Lovenox -) 40 mg SQ DAILY [facility] Last Admin: 12/18/18 09:29 Dose: Not Given Hydralazine HCl (Apresoline -) 100 mg PO TID [facility] Last Admin: 12/18/18 05:53 Dose: 100 mg Lactated Ringer's (Lactated Ringers Solution) 1,000 ml in 1,000 mls @ 125 mls/ hr IV ASDIR [facility] Last Admin: 12/17/18 21:27 Dose: 125 mls/hr Melatonin (Melatonin) 5 mg PO HS PRN PRN Reason: INSOMNIA Last Admin: 12/18/18 03:45 Dose: 5 mg Metoprolol Succinate (Toprol Xl -) 300 mg PO DAILY [facility] Last Admin: 12/18/18 09:36 Dose: 300 mg Nifedipine (Procardia Xl -) 90 mg PO DAILY [facility] Last Admin: 12/18/18 09:36 Dose: 90 mg - Objective Vital Signs: Vital Signs Temperature 98.3 F 12/18/18 09:00 Pulse Rate 72 12/18/18 09:00 Respiratory Rate 18 12/18/18 09:00 Blood Pressure 134/85 12/18/18 09:00 O2 Sat by Pulse Oximetry (%) 98 12/17/18 21:00 Constitutional: Yes: Moderate Distress Eyes: Yes: WNL HENT: Yes: WNL Neck: Yes: WNL Cardiovascular: Yes: Regular Rate and Rhythm Respiratory: Yes: WNL Genitourinary: Yes: WNL Musculoskeletal: Yes: WNL Extremities: Yes: WNL Edema: No Peripheral Pulses WNL: Yes Integumentary: Yes: WNL Wound/Incision: Yes: Clean/Dry Neurological: Yes: Pre-Existing Deficit, Other Psychiatric: Yes: Other (SAD AND DEPRESSED) Labs: CBC, BMP 12/18/18 07:31 12/18/18 07:31 Problem List - Problems (1) Adverse drug reaction Code(s): T50.905A - ADVERSE EFFECT OF UNSP DRUG/MEDS/BIOL SUBST, INIT Qualifiers: Encounter type: initial encounter Qualified Code(s): T50.905A - Adverse effect of unspecified drugs, medicaments and biological substances, initial encounter (2) Auditory hallucination Code(s): R44.0 - AUDITORY HALLUCINATIONS (3) Flat affect Code(s): R45.89 - OTHER SYMPTOMS AND SIGNS INVOLVING EMOTIONAL STATE (4) Visual hallucination Code(s): R44.1 - VISUAL HALLUCINATIONS (5) CKD (chronic kidney disease), stage III Code(s): N18.3 - CHRONIC KIDNEY DISEASE, STAGE 3 (MODERATE) (6) Dizziness Code(s): R42 - DIZZINESS AND GIDDINESS (7) H/O: CVA (cerebrovascular accident) Code(s): Z86.73 - PRSNL HX OF TIA (TIA), AND CEREB INFRC W/O RESID DEFICITS (8) Hypertension Code(s): I10 - ESSENTIAL (PRIMARY) HYPERTENSION Qualifiers: Hypertension type: unspecified Qualified Code(s): I10 - Essential (primary ) hypertension Assessment/Plan MONITOR LABS AND BP RENAL F/U APPRECIATED PSYCH EVAL DAILY OFF 1:1 OBSERVATION NEURO EVAL OOB TO CHAIR
--- NOTE | 2018-12-18 12:46 | PN ---
Progress Note, Physician History of Present Illness: Pt seen and examined at bedside. He is awake and alert. He denies suicide ideation. - Current Medication List Current Medications: Active Medications Aspirin (Asa -) 81 mg PO DAILY [facility] Last Admin: 12/18/18 09:36 Dose: 81 mg Atorvastatin Calcium (Lipitor -) 20 mg PO HS [facility] Last Admin: 12/17/18 21:28 Dose: 20 mg Cholecalciferol (Vitamin D3 -) 400 unit PO DAILY [facility] Last Admin: 12/18/18 09:36 Dose: 400 unit Citalopram Hydrobromide (Celexa -) 10 mg PO DAILY [facility] Clopidogrel Bisulfate (Plavix -) 75 mg PO DAILY [facility] Last Admin: 12/18/18 09:36 Dose: 75 mg Enoxaparin Sodium (Lovenox -) 40 mg SQ DAILY [facility] Last Admin: 12/18/18 09:29 Dose: Not Given Hydralazine HCl (Apresoline -) 100 mg PO TID [facility] Last Admin: 12/18/18 05:53 Dose: 100 mg Lactated Ringer's (Lactated Ringers Solution) 1,000 ml in 1,000 mls @ 125 mls/ hr IV ASDIR [facility] Last Admin: 12/17/18 21:27 Dose: 125 mls/hr Melatonin (Melatonin) 5 mg PO HS PRN PRN Reason: INSOMNIA Last Admin: 12/18/18 03:45 Dose: 5 mg Metoprolol Succinate (Toprol Xl -) 300 mg PO DAILY [facility] Last Admin: 12/18/18 09:36 Dose: 300 mg Nifedipine (Procardia Xl -) 90 mg PO DAILY [facility] Last Admin: 12/18/18 09:36 Dose: 90 mg - Objective Vital Signs: Vital Signs Temperature 98.3 F 12/18/18 09:00 Pulse Rate 72 12/18/18 09:00 Respiratory Rate 18 12/18/18 09:00 Blood Pressure 134/85 12/18/18 09:00 O2 Sat by Pulse Oximetry (%) 98 12/17/18 21:00 Constitutional: Yes: Calm Eyes: Yes: Conjunctiva Clear HENT: Yes: Atraumatic Neck: Yes: Supple Cardiovascular: Yes: S1, S2 Respiratory: Yes: CTA Bilaterally Gastrointestinal: Yes: Normal Bowel Sounds, Soft Genitourinary: Yes: WNL Musculoskeletal: Yes: WNL Extremities: Yes: WNL Edema: No Neurological: Yes: Oriented Psychiatric: Yes: Oriented Labs: CBC, BMP 12/18/18 07:31 12/18/18 07:31 Assessment/Plan Current Medications Generic Name Dose Route Start Last Admin Trade Name Freq PRN Reason Stop Dose Admin Aspirin 81 mg 12/16/18 18:00 12/18/18 09:36 Asa - PO 81 mg DAILY [facility] Administration Atorvastatin Calcium 20 mg 12/16/18 22:00 12/17/18 21:28 Lipitor - PO 20 mg HS [facility] Administration Cholecalciferol 400 unit 12/17/18 10:00 12/18/18 09:36 Vitamin D3 - PO 400 unit DAILY [facility] Administration Citalopram Hydrobromide 10 mg 12/18/18 11:30 Celexa - PO DAILY [facility] Clopidogrel Bisulfate 75 mg 12/17/18 10:00 12/18/18 09:36 Plavix - PO 75 mg DAILY [facility] Administration Enoxaparin Sodium 40 mg 12/17/18 10:00 12/18/18 09:29 Lovenox - SQ Not Given DAILY [facility] Hydralazine HCl 100 mg 12/16/18 22:00 12/18/18 05:53 Apresoline - PO 100 mg TID [facility] Administration Lactated Ringer's 1,000 ml in 1,000 mls @ 125 mls/hr 12/16/18 17:45 12/17/18 21:27 Lactated Ringers Solution IV 125 mls/hr ASDIR [facility] Administration Melatonin 5 mg 12/17/18 00:36 12/18/18 03:45 Melatonin PO 5 mg HS PRN Administration INSOMNIA Metoprolol Succinate 300 mg 12/17/18 10:00 12/18/18 09:36 Toprol Xl - PO 300 mg DAILY [facility] Administration Nifedipine 90 mg 12/17/18 10:00 12/18/18 09:36 Procardia Xl - PO 90 mg DAILY [facility] Administration Impression 1. CKD 2. HTN 3. HLD 4. CVA 5. hallucinations Plan - decrease fluids - repeat urine tox - bp stable - psych follow up
[2018-12-18] MEDS: LACTATED RINGERS SOLUTION 1,000 ML/1,000 ML INFUS.BAG IV SCH (13:50)
[2018-12-18] MEDS: CITALOPRAM HYDROBROMIDE 10 MG TABLET (FP) PO SCH (13:50)
[2018-12-18 14:57] LABS: COCAINE, UR NEGATIVE ng/ml (CUTOFF=300); METHADONE, UR NEGATIVE ng/ml (CUTOFF=300); OPIATES, URI NEGATIVE ng/ml (CUTOFF=300); PHENCYCLIDINE,URINE NEGATIVE ng/ml (CUTOFF=25); URINE AMPHETAMINES NEGATIVE ng/ml (CUTOFF=500); URINE BARBITURATES NEGATIVE ng/ml (CUTOFF=200); URINE BENZODIAZEPINES NEGATIVE ng/ml (CUTOFF=200)
--- NOTE | 2018-12-18 15:03 | CONSULT ---
Consult - text type - Consultation Consultation Note: NEUROLOGY CONSULT GREATLY APPRECIATED: Events reviewed and discussed with VICKI Spears. Patient examined. 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 PMHX: HTN, HLD, depression. On: ASA, atorvastatin, Vit D3, plavix, buproprion 150 mg XL, HCTZ, metoprolol ER 200 mg, nifedipine, valsartan. Recently admitted for subacute confusional state attributed to hypertensive crisis. Improved in 24 hrs. Discharged on 12/15/18 Tox screen not done. Now returns at request of PCP after suicidal and homicidal thoughts along with auditory and visual hallucinations. Tested positive for NMDA 12/16/18. Repeat + on 12/18. Seen today and currently denies active SI/HI or hallucinations, however reports he is paranoid "someone may hurt him" and will not elaborate further. MADY: BP 110/70. NEURO: Awake, alert, flat affect, speech sparse. Poor eye contact. Ox x 3. CNII-CNXII: Normal. Motor: No drift or tremor. Strength normal. Reflexes brisk throughout. GENI's preserved. Coordination: Normal Sensation: Normal to vibration. Gait: Mild scissoring. Impression: Ecstasy withdrawal presenting as acute Depressive State with paranoia, cognitive changes SHIP'S PILOT microvascular disease Suggest: Psychiatry consultation. Transitioned from buproprion to citalopram 10 mg daily Addiction medicine rehabilitation Continue aggressive BP control but consider alternative agents to metoprolol if depression remains an issue. Thank you very much, Christopher Pedro MD
[2018-12-18] MEDS ORDERED: LORazepam 0.5 MG TABLET PO ONE (20:43)
[2018-12-18] MEDS: ATORVASTATIN CA 20 MG TABLET (FP) PO SCH (21:06)
[2018-12-19] MEDS: hydrALAZINE HCL 50 MG TABLET (FP) PO SCH ×3 (06:29→21:31)
[2018-12-19 08:36] LABS: BLOOD UREA NITROGEN 20.9 mg/dL (7-18); CALCIUM 9.1 mg/dL (8.5-10.1); CREATININE 1.5 mg/dL (0.55-1.3); POTASSIUM 4.1 mmol/L (3.5-5.1)
--- NOTE | 2018-12-19 09:46 | PN ---
Progress Note (short form) - Note Progress Note: RENAL Pt awake and alert comfortable though appears anxious Last Vital Signs Temp Pulse Resp BP Pulse Ox 98.9 F 70 20 176/89 H 98 12/19/18 06:31 12/19/18 06:31 12/19/18 06:31 12/19/18 06:31 12/17/18 21:00 lungs clear cvs s1s2 rr abd soft ext +edema neuro a+ox3 CBC, BMP 12/18/18 07:31 12/19/18 07:16 Current Medications Generic Name Dose Route Start Last Admin Trade Name Freq PRN Reason Stop Dose Admin Aspirin 81 mg 12/16/18 18:00 12/18/18 09:36 Asa - PO 81 mg DAILY [facility] Administration Atorvastatin Calcium 20 mg 12/16/18 22:00 12/18/18 21:06 Lipitor - PO 20 mg HS [facility] Administration Cholecalciferol 400 unit 12/17/18 10:00 12/18/18 09:36 Vitamin D3 - PO 400 unit DAILY [facility] Administration Citalopram Hydrobromide 10 mg 12/18/18 11:30 12/18/18 13:50 Celexa - PO 10 mg DAILY [facility] Administration Clopidogrel Bisulfate 75 mg 12/17/18 10:00 12/18/18 09:36 Plavix - PO 75 mg DAILY [facility] Administration Enoxaparin Sodium 40 mg 12/17/18 10:00 12/18/18 09:29 Lovenox - SQ Not Given DAILY [facility] Hydralazine HCl 100 mg 12/16/18 22:00 12/19/18 06:29 Apresoline - PO 100 mg TID [facility] Administration Lactated Ringer's 1,000 ml in 1,000 mls @ 65 mls/hr 12/18/18 12:46 12/18/18 13:50 Lactated Ringers Solution IV 65 mls/hr ASDIR [facility] Administration Melatonin 5 mg 12/17/18 00:36 12/18/18 03:45 Melatonin PO 5 mg HS PRN Administration INSOMNIA Metoprolol Succinate 300 mg 12/17/18 10:00 12/18/18 09:36 Toprol Xl - PO 300 mg DAILY [facility] Administration Nifedipine 90 mg 12/17/18 10:00 12/18/18 09:36 Procardia Xl - PO 90 mg DAILY [facility] Administration Impression 1. CKD 2. HTN 3. HLD 4. CVA 5. hallucinations Plan discontinue fluids given edema and hypertension Psych follow up [facility]
[2018-12-19] MEDS ORDERED: PT OWN MED DRAWER 7, Y5N ONE (09:50)
[2018-12-19] MEDS: CLOPIDOGREL BISULFATE 75 MG TABLET (FP) PO SCH (09:53)
[2018-12-19] MEDS: NIFEdipine E.R. 90 MG TABLET (FP) PO SCH (09:53)
[2018-12-19] MEDS: ENOXAPARIN NA (PORCINE) 40 MG/0.4 ML DISP.SYRIN SQ SCH (09:53)
[2018-12-19] MEDS: ASPIRIN 81 MG CHEWABLE TABLETS PO SCH (09:54)
[2018-12-19] MEDS: CITALOPRAM HYDROBROMIDE 10 MG TABLET (FP) PO SCH (09:54)
[2018-12-19] MEDS: CHOLECALCIFEROL (VIT D3) 400 UNIT (10 MCG) TABLET PO SCH (09:54)
[2018-12-19] MEDS: LACTATED RINGERS SOLUTION 1,000 ML/1,000 ML INFUS.BAG IV SCH (14:21)
--- NOTE | 2018-12-19 15:44 | PN ---
Progress Note, Physician Chief Complaint: Visual and auditory hallucinations History of Present Illness: NAD sitting in chair conformable, making eye contact during conversation Family at bedside - Current Medication List Current Medications: Active Medications Aspirin (Asa -) 81 mg PO DAILY [facility] Last Admin: 12/19/18 09:54 Dose: 81 mg Atorvastatin Calcium (Lipitor -) 20 mg PO HS [facility] Last Admin: 12/18/18 21:06 Dose: 20 mg Cholecalciferol (Vitamin D3 -) 400 unit PO DAILY [facility] Last Admin: 12/19/18 09:54 Dose: 400 unit Citalopram Hydrobromide (Celexa -) 10 mg PO DAILY [facility] Last Admin: 12/19/18 09:54 Dose: 10 mg Clopidogrel Bisulfate (Plavix -) 75 mg PO DAILY [facility] Last Admin: 12/19/18 09:53 Dose: 75 mg Enoxaparin Sodium (Lovenox -) 40 mg SQ DAILY [facility] Last Admin: 12/19/18 09:53 Dose: 40 mg Hydralazine HCl (Apresoline -) 100 mg PO TID [facility] Last Admin: 12/19/18 14:22 Dose: 100 mg Lactated Ringer's (Lactated Ringers Solution) 1,000 ml in 1,000 mls @ 65 mls/ hr IV ASDIR [facility] Last Admin: 12/19/18 14:21 Dose: 65 mls/hr Melatonin (Melatonin) 5 mg PO HS PRN PRN Reason: INSOMNIA Last Admin: 12/18/18 03:45 Dose: 5 mg Metoprolol Succinate (Toprol Xl -) 300 mg PO DAILY [facility] Last Admin: 12/19/18 09:53 Dose: 300 mg Nifedipine (Procardia Xl -) 90 mg PO DAILY [facility] Last Admin: 12/19/18 09:53 Dose: 90 mg - Objective Vital Signs: Vital Signs Temperature 98.5 F 12/19/18 14:00 Pulse Rate 67 12/19/18 14:00 Respiratory Rate 20 12/19/18 14:00 Blood Pressure 157/80 12/19/18 14:00 O2 Sat by Pulse Oximetry (%) 95 12/19/18 09:00 Constitutional: Yes: Well Nourished, No Distress, Calm Cardiovascular: Yes: Regular Rate and Rhythm Respiratory: Yes: Regular Gastrointestinal: Yes: Normal Bowel Sounds, Soft Genitourinary: Yes: WNL Musculoskeletal: Yes: WNL Extremities: Yes: WNL Edema: No Peripheral Pulses WNL: Yes Neurological: Yes: Alert, Oriented Psychiatric: Yes: Alert, Oriented Labs: CBC, BMP 12/18/18 07:31 12/19/18 07:16 Problem List - Problems (1) Adverse drug reaction Assessment/Plan: -Pt denies any use of illicit drugs -Urine toxicology + for MDMA, likely false + 2/2 to wellbutrin -Spoke to Dr Lalita Giron to confirm the possibility of false+ -Neurology notified Pt was started on Wellbutrin in the past s/p CVA by previous PCP for depression. However, pt never took the medication. Pt was started on wellbutrin previous admission at [facility] under the assumption that pt is already on the medication at home. Pt's symptoms of auditory and visual hallucinations started 2 days prior to previous discharge but no one in the medical team was notified. As per + son, pt has no history of auditory or visual hallucinations. Pt expressed + auditory+visual hallucinations earlier this AM to RN and later on to his brother. Upon asking, pt denies such hallucinations to me. Problems reviewed: Yes Code(s): T50.905A - ADVERSE EFFECT OF UNSP DRUG/MEDS/BIOL SUBST, INIT Qualifiers: Encounter type: initial encounter Qualified Code(s): T50.905A - Adverse effect of unspecified drugs, medicaments and biological substances, initial encounter (2) Auditory hallucination Problems reviewed: Yes Code(s): R44.0 - AUDITORY HALLUCINATIONS (3) Visual hallucination Problems reviewed: Yes Code(s): R44.1 - VISUAL HALLUCINATIONS (4) H/O: CVA (cerebrovascular accident) Assessment/Plan: -Seen by Neurology -MRI+ CT head done within past 1 week showed no acute infarcts or masses -Continue Plavix+asa+statin Code(s): Z86.73 - PRSNL HX OF TIA (TIA), AND CEREB INFRC W/O RESID DEFICITS (5) Hypertension Assessment/Plan: -BP controlled on current regimen Problems reviewed: Yes Code(s): I10 - ESSENTIAL (PRIMARY) HYPERTENSION Qualifiers: Hypertension type: unspecified Qualified Code(s): I10 - Essential (primary ) hypertension Assessment/Plan see problem list
[2018-12-19] MEDS: ATORVASTATIN CA 20 MG TABLET (FP) PO SCH (21:31)
[2018-12-19] MEDS ORDERED: QUEtiapine FUMARATE 25 MG TABLET (FP) PO SCH (22:00)
[2018-12-20] MEDS: MELATONIN 5 MG TABLETS PO PRN (03:59)
[2018-12-20] MEDS: hydrALAZINE HCL 50 MG TABLET (FP) PO SCH ×3 (06:08→21:19)
--- NOTE | 2018-12-20 09:03 | PN ---
Progress Note (short form) - Note Progress Note: RENAL Pt awake and alert comfortable though appears anxious Last Vital Signs Temp Pulse Resp BP Pulse Ox 98.7 F 65 20 165/83 99 12/20/18 07:01 12/20/18 07:01 12/20/18 07:01 12/20/18 07:01 12/19/18 21:00 lungs clear cvs s1s2 rr abd soft ext +edema neuro a+ox3 CBC, BMP 12/18/18 07:31 12/19/18 07:16 Current Medications Generic Name Dose Route Start Last Admin Trade Name Freq PRN Reason Stop Dose Admin Aspirin 81 mg 12/16/18 18:00 12/19/18 09:54 Asa - PO 81 mg DAILY [facility] Administration Atorvastatin Calcium 20 mg 12/16/18 22:00 12/19/18 21:31 Lipitor - PO 20 mg HS [facility] Administration Cholecalciferol 400 unit 12/17/18 10:00 12/19/18 09:54 Vitamin D3 - PO 400 unit DAILY [facility] Administration Citalopram Hydrobromide 10 mg 12/18/18 11:30 12/19/18 09:54 Celexa - PO 10 mg DAILY [facility] Administration Clopidogrel Bisulfate 75 mg 12/17/18 10:00 12/19/18 09:53 Plavix - PO 75 mg DAILY [facility] Administration Enoxaparin Sodium 40 mg 12/17/18 10:00 12/19/18 09:53 Lovenox - SQ 40 mg DAILY [facility] Administration Hydralazine HCl 100 mg 12/16/18 22:00 12/20/18 06:08 Apresoline - PO 100 mg TID [facility] Administration Lactated Ringer's 1,000 ml in 1,000 mls @ 65 mls/hr 12/18/18 12:46 12/19/18 14:21 Lactated Ringers Solution IV 65 mls/hr ASDIR [facility] Administration Melatonin 5 mg 12/17/18 00:36 12/20/18 03:59 Melatonin PO 5 mg HS PRN Administration INSOMNIA Metoprolol Succinate 300 mg 12/17/18 10:00 12/19/18 09:53 Toprol Xl - PO 300 mg DAILY [facility] Administration Nifedipine 90 mg 12/17/18 10:00 12/19/18 09:53 Procardia Xl - PO 90 mg DAILY [facility] Administration Impression 1. CKD 2. HTN 3. HLD 4. CVA 5. hallucinations Plan discontinue fluids given edema and hypertension Psych follow up repeat labs [facility]
[2018-12-20] MEDS ORDERED: PT OWN MED DRAWER 7, Y5N ONE (09:29)
[2018-12-20] MEDS: CITALOPRAM HYDROBROMIDE 10 MG TABLET (FP) PO SCH (09:33)
[2018-12-20] MEDS: ASPIRIN 81 MG CHEWABLE TABLETS PO SCH (09:33)
[2018-12-20] MEDS: CLOPIDOGREL BISULFATE 75 MG TABLET (FP) PO SCH (09:38)
[2018-12-20] MEDS: ENOXAPARIN NA (PORCINE) 40 MG/0.4 ML DISP.SYRIN SQ SCH (09:38)
[2018-12-20] MEDS: NIFEdipine E.R. 90 MG TABLET (FP) PO SCH (09:38)
[2018-12-20] MEDS: CHOLECALCIFEROL (VIT D3) 400 UNIT (10 MCG) TABLET PO SCH (09:38)
--- NOTE | 2018-12-20 12:53 | PN ---
Progress Note, Physician Chief Complaint: Visual and auditory hallucinations History of Present Illness: NAD sitting at the edge of the bed Mentions of hearing a man saying "I'm going to kill you". Pt stating that "I do not feel safe here". He denies seeing a man. Also states there are two more on the other side of the hallway. Pt "appears scared". - Current Medication List Current Medications: Active Medications Aspirin (Asa -) 81 mg PO DAILY [facility] Last Admin: 12/20/18 09:33 Dose: 81 mg Atorvastatin Calcium (Lipitor -) 20 mg PO HS [facility] Last Admin: 12/19/18 21:31 Dose: 20 mg Cholecalciferol (Vitamin D3 -) 400 unit PO DAILY [facility] Last Admin: 12/20/18 09:38 Dose: 400 unit Citalopram Hydrobromide (Celexa -) 10 mg PO DAILY [facility] Last Admin: 12/20/18 09:33 Dose: 10 mg Clopidogrel Bisulfate (Plavix -) 75 mg PO DAILY [facility] Last Admin: 12/20/18 09:38 Dose: 75 mg Enoxaparin Sodium (Lovenox -) 40 mg SQ DAILY [facility] Last Admin: 12/20/18 09:38 Dose: 40 mg Hydralazine HCl (Apresoline -) 100 mg PO TID [facility] Last Admin: 12/20/18 06:08 Dose: 100 mg Melatonin (Melatonin) 5 mg PO PRN PRN Reason: INSOMNIA Last Admin: 12/20/18 03:59 Dose: 5 mg Metoprolol Succinate (Toprol Xl -) 300 mg PO DAILY [facility] Last Admin: 12/20/18 09:38 Dose: 300 mg Nifedipine (Procardia Xl -) 90 mg PO DAILY [facility] Last Admin: 12/20/18 09:38 Dose: 90 mg Quetiapine Fumarate (Seroquel -) 25 mg PO [facility] - Objective Vital Signs: Vital Signs Temperature 98.7 F 12/20/18 07:01 Pulse Rate 65 12/20/18 07:01 Respiratory Rate 20 12/20/18 07:01 Blood Pressure 165/83 12/20/18 07:01 O2 Sat by Pulse Oximetry (%) 99 12/19/18 21:00 Constitutional: Yes: Well Nourished, No Distress, Calm Cardiovascular: Yes: Regular Rate and Rhythm Respiratory: Yes: Regular Gastrointestinal: Yes: Normal Bowel Sounds, Soft Musculoskeletal: Yes: WNL Extremities: Yes: WNL Edema: No Peripheral Pulses WNL: Yes Neurological: Yes: Alert, Oriented Psychiatric: Yes: Alert, Oriented Labs: CBC, BMP 12/18/18 07:31 12/19/18 07:16 Problem List - Problems (1) Adverse drug reaction Assessment/Plan: -Pt denies any use of illicit drugs -Urine toxicology + for MDMA, likely false + 2/2 to wellbutrin -Spoke to Dr Lalita Giron to confirm the possibility of false+ with use of Wellbutrin -Neurology notified 12/19/18-Pt was started on Wellbutrin in the past s/p CVA by previous PCP for depression. However, pt never took the medication. Pt was started on wellbutrin previous admission at [facility] under the assumption that pt is already on the medication at home. Pt's symptoms of auditory and visual hallucinations started 2 days prior to previous discharge but no one in the medical team was notified. As per + son, pt has no history of auditory or visual hallucinations. Pt expressed + auditory+visual hallucinations earlier this AM to RN and later on to his brother. Upon asking, pt denies such hallucinations to me. 12/20/18-hallucinations are worse. Would d/c citalopram. Was given Seroquel 25 mg po last night, pt states he did not sleep well at all "because of constant worrying". Would add seroquel 25 mg po AM and increase nigh time seroquel to 50 mg HS Problems reviewed: Yes Code(s): T50.905A - ADVERSE EFFECT OF UNSP DRUG/MEDS/BIOL SUBST, INIT Qualifiers: Encounter type: initial encounter Qualified Code(s): T50.905A - Adverse effect of unspecified drugs, medicaments and biological substances, initial encounter (2) Auditory hallucination Assessment/Plan: -Psychiatry consult -Repeat CT head Problems reviewed: Yes Code(s): R44.0 - AUDITORY HALLUCINATIONS (3) Visual hallucination Problems reviewed: Yes Code(s): R44.1 - VISUAL HALLUCINATIONS (4) H/O: CVA (cerebrovascular accident) Assessment/Plan: -Seen by Neurology -MRI+ CT head done within past 1 week showed no acute infarcts or masses -Continue Plavix+asa+statin Problems reviewed: Yes Code(s): Z86.73 - PRSNL HX OF TIA (TIA), AND CEREB INFRC W/O RESID DEFICITS (5) Hypertension Assessment/Plan: -BP controlled on current regimen Problems reviewed: Yes Code(s): I10 - ESSENTIAL (PRIMARY) HYPERTENSION Qualifiers: Hypertension type: unspecified Qualified Code(s): I10 - Essential (primary ) hypertension
[2018-12-20] MEDS: ATORVASTATIN CA 20 MG TABLET (FP) PO SCH (21:19)
[2018-12-20] MEDS: QUEtiapine FUMARATE 25 MG TABLET (FP) PO SCH (21:19)
[2018-12-20] MEDS ORDERED: QUEtiapine FUMARATE 25 MG TABLET (FP) PO SCH ×2 (22:00)
[2018-12-21] MEDS: hydrALAZINE HCL 50 MG TABLET (FP) PO SCH ×3 (06:29→21:20)
[2018-12-21] MEDS: QUEtiapine FUMARATE 25 MG TABLET (FP) PO SCH ×2 (06:30→21:20)
--- NOTE | 2018-12-21 10:31 | PN ---
Progress Note, Physician Chief Complaint: Auditory Hallucinations History of Present Illness: Previous notes and events from reviewed awake and alert NAD currently denying auditory or visual hallucinations denies SI/HI flat affect noted and appears internally pre-occupied - Current Medication List Current Medications: Active Medications Aspirin (Asa -) 81 mg PO DAILY [facility] Last Admin: 12/20/18 09:33 Dose: 81 mg Atorvastatin Calcium (Lipitor -) 20 mg PO HS [facility] Last Admin: 12/20/18 21:19 Dose: 20 mg Cholecalciferol (Vitamin D3 -) 400 unit PO DAILY [facility] Last Admin: 12/20/18 09:38 Dose: 400 unit Clopidogrel Bisulfate (Plavix -) 75 mg PO DAILY [facility] Last Admin: 12/20/18 09:38 Dose: 75 mg Enoxaparin Sodium (Lovenox -) 40 mg SQ DAILY [facility] Last Admin: 12/20/18 09:38 Dose: 40 mg Hydralazine HCl (Apresoline -) 100 mg PO TID [facility] Last Admin: 12/21/18 06:29 Dose: 100 mg Melatonin (Melatonin) 5 mg PO HS PRN PRN Reason: INSOMNIA Last Admin: 12/20/18 03:59 Dose: 5 mg Metoprolol Succinate (Toprol Xl -) 300 mg PO DAILY [facility] Last Admin: 12/20/18 09:38 Dose: 300 mg Nifedipine (Procardia Xl -) 90 mg PO DAILY [facility] Last Admin: 12/20/18 09:38 Dose: 90 mg Quetiapine Fumarate (Seroquel -) 50 mg PO HS [facility] Last Admin: 12/20/18 21:19 Dose: 50 mg Quetiapine Fumarate (Seroquel -) 25 mg PO AM [facility] Last Admin: 12/21/18 06:30 Dose: 25 mg - Objective Vital Signs: Vital Signs Temperature 98.4 F 12/21/18 06:47 Pulse Rate 70 12/21/18 06:47 Respiratory Rate 18 12/21/18 06:47 Blood Pressure 140/69 12/21/18 06:47 O2 Sat by Pulse Oximetry (%) 97 12/20/18 21:00 Constitutional: Yes: No Distress, Calm Eyes: Yes: Conjunctiva Clear HENT: Yes: Atraumatic Cardiovascular: Yes: Regular Rate and Rhythm Respiratory: Yes: Regular, CTA Bilaterally Gastrointestinal: Yes: Normal Bowel Sounds, Soft Musculoskeletal: Yes: WNL Extremities: Yes: WNL Edema: No Neurological: Yes: Alert, Oriented Psychiatric: Yes: Alert, Oriented Labs: CBC, BMP 12/18/18 07:31 12/19/18 07:16 Problem List - Problems (1) Auditory hallucination Assessment/Plan: -Psych on board -Dr Giron consult -Seroquel -repeat Head CT scan shows no significant interval change or gross acute intracranial pathology identified -Utox + MDMA possibly false positive 2/2 to Wellbutrin -patient is medically cleared and awaiting psych clearance Code(s): R44.0 - AUDITORY HALLUCINATIONS (2) CKD (chronic kidney disease), stage III Assessment/Plan: -Renal consult -BUN/Cr 20.9/1.5 -monitor renal function daily Code(s): N18.3 - CHRONIC KIDNEY DISEASE, STAGE 3 (MODERATE) (3) Hypertension Assessment/Plan: -Hydralazine, Metoprolol, Nifedipine -low Na diet Code(s): I10 - ESSENTIAL (PRIMARY) HYPERTENSION Qualifiers: Hypertension type: unspecified Qualified Code(s): I10 - Essential (primary ) hypertension (4) Visual hallucination Assessment/Plan: -Psych on board -Dr Giron consult -Seroquel -repeat Head CT scan shows no significant interval change or gross acute intracranial pathology identified -Utox + MDMA possibly false positive 2/2 to Wellbutrin Code(s): R44.1 - VISUAL HALLUCINATIONS (5) H/O: CVA (cerebrovascular accident) Assessment/Plan: -Aspirin, Lipitor, Plavix Code(s): Z86.73 - PRSNL HX OF TIA (TIA), AND CEREB INFRC W/O RESID DEFICITS Assessment/Plan see problem list dvt ppx
[2018-12-21] MEDS: ASPIRIN 81 MG CHEWABLE TABLETS PO SCH (10:51)
[2018-12-21] MEDS: ENOXAPARIN NA (PORCINE) 40 MG/0.4 ML DISP.SYRIN SQ SCH (10:51)
[2018-12-21] MEDS: NIFEdipine E.R. 90 MG TABLET (FP) PO SCH (10:51)
[2018-12-21] MEDS: CLOPIDOGREL BISULFATE 75 MG TABLET (FP) PO SCH (10:52)
[2018-12-21] MEDS: CHOLECALCIFEROL (VIT D3) 400 UNIT (10 MCG) TABLET PO SCH (10:52)
--- NOTE | 2018-12-21 11:12 | PN ---
Progress Note (short form) - Note Progress Note: Patient seen for Psych re eval. MS: alert, oriented, able to [id number]. DEnies any visual or auditory hallucinations or suicidal thoughyts. PLan. Continue with Seroquel, and d/c when medically stable.
--- NOTE | 2018-12-21 15:43 | PN ---
Progress Note, Physician History of Present Illness: Pt seen and examined at bedside. He is awake and alert. He is eager to go home. - Current Medication List Current Medications: Active Medications Aspirin (Asa -) 81 mg PO DAILY [facility] Last Admin: 12/21/18 10:51 Dose: 81 mg Atorvastatin Calcium (Lipitor -) 20 mg PO HS [facility] Last Admin: 12/20/18 21:19 Dose: 20 mg Cholecalciferol (Vitamin D3 -) 400 unit PO DAILY [facility] Last Admin: 12/21/18 10:52 Dose: 400 unit Clopidogrel Bisulfate (Plavix -) 75 mg PO DAILY [facility] Last Admin: 12/21/18 10:52 Dose: 75 mg Enoxaparin Sodium (Lovenox -) 40 mg SQ DAILY [facility] Last Admin: 12/21/18 10:51 Dose: 40 mg Hydralazine HCl (Apresoline -) 100 mg PO TID [facility] Last Admin: 12/21/18 15:09 Dose: 100 mg Melatonin (Melatonin) 5 mg PO HS PRN PRN Reason: INSOMNIA Last Admin: 12/20/18 03:59 Dose: 5 mg Metoprolol Succinate (Toprol Xl -) 300 mg PO DAILY [facility] Last Admin: 12/21/18 10:51 Dose: 300 mg Nifedipine (Procardia Xl -) 90 mg PO DAILY [facility] Last Admin: 12/21/18 10:51 Dose: 90 mg Quetiapine Fumarate (Seroquel -) 50 mg PO HS [facility] Last Admin: 12/20/18 21:19 Dose: 50 mg Quetiapine Fumarate (Seroquel -) 25 mg PO AM [facility] Last Admin: 12/21/18 06:30 Dose: 25 mg - Objective Vital Signs: Vital Signs Temperature 98.4 F 12/21/18 10:00 Pulse Rate 67 12/21/18 10:00 Respiratory Rate 18 12/21/18 10:00 Blood Pressure 142/70 12/21/18 10:00 O2 Sat by Pulse Oximetry (%) 97 12/20/18 21:00 Constitutional: Yes: Calm Eyes: Yes: Conjunctiva Clear HENT: Yes: Atraumatic Neck: Yes: Supple Cardiovascular: Yes: S1, S2 Respiratory: Yes: CTA Bilaterally Gastrointestinal: Yes: Soft Genitourinary: Yes: WNL Musculoskeletal: Yes: WNL Edema: No Integumentary: Yes: WNL Neurological: Yes: Oriented Psychiatric: Yes: Oriented Labs: CBC, BMP 12/18/18 07:31 12/19/18 07:16 Assessment/Plan Current Medications Generic Name Dose Route Start Last Admin Trade Name Ricky PRN Reason Stop Dose Admin Aspirin 81 mg 12/16/18 18:00 12/21/18 10:51 Asa - PO 81 mg DAILY [facility] Administration Atorvastatin Calcium 20 mg 12/16/18 22:00 12/20/18 21:19 Lipitor - PO 20 mg HS [facility] Administration Cholecalciferol 400 unit 12/17/18 10:00 12/21/18 10:52 Vitamin D3 - PO 400 unit DAILY [facility] Administration Clopidogrel Bisulfate 75 mg 12/17/18 10:00 12/21/18 10:52 Plavix - PO 75 mg DAILY [facility] Administration Enoxaparin Sodium 40 mg 12/17/18 10:00 12/21/18 10:51 Lovenox - SQ 40 mg DAILY [facility] Administration Hydralazine HCl 100 mg 12/16/18 22:00 12/21/18 15:09 Apresoline - PO 100 mg TID [facility] Administration Melatonin 5 mg 12/17/18 00:36 12/20/18 03:59 Melatonin PO 5 mg HS PRN Administration INSOMNIA Metoprolol Succinate 300 mg 12/17/18 10:00 12/21/18 10:51 Toprol Xl - PO 300 mg DAILY [facility] Administration Nifedipine 90 mg 12/17/18 10:00 12/21/18 10:51 Procardia Xl - PO 90 mg DAILY [facility] Administration Quetiapine Fumarate 50 mg 12/20/18 22:00 12/20/18 21:19 Seroquel - PO 50 mg HS [facility] Administration Quetiapine Fumarate 25 mg 12/21/18 07:00 12/21/18 06:30 Seroquel - PO 25 mg AM [facility] Administration Laboratory Tests 12/16/18 12/16/18 12/16/18 16:36 17:36 17:36 Creatinine 2.9 H Urine Protein Negative Urine Blood Negative MDMA (Ecstasy) Screen Positive A* 12/18/18 14:05 Creatinine Urine Protein Urine Blood MDMA (Ecstasy) Screen Positive A* Impression 1. CKD 2. HTN 3. HLD 4. CVA 5. hallucinations Plan - bp stabilizing - psych input appreciated - renal function is improved - can see pt in office - mdma likely false pos
[2018-12-21] MEDS: ATORVASTATIN CA 20 MG TABLET (FP) PO SCH (21:20)
[2018-12-22] MEDS: QUEtiapine FUMARATE 25 MG TABLET (FP) PO SCH ×2 (06:21→21:12)
[2018-12-22] MEDS: hydrALAZINE HCL 50 MG TABLET (FP) PO SCH ×3 (06:21→21:13)
[2018-12-22] MEDS ORDERED: PT OWN MED DRAWER 7, Y5N ONE ×2 (09:27→21:57)
--- NOTE | 2018-12-22 10:03 | PN ---
Progress Note, Physician - Current Medication List Current Medications: Active Medications Aspirin (Asa -) 81 mg PO DAILY [facility] Last Admin: 12/21/18 10:51 Dose: 81 mg Atorvastatin Calcium (Lipitor -) 20 mg PO HS [facility] Last Admin: 12/21/18 21:20 Dose: 20 mg Cholecalciferol (Vitamin D3 -) 400 unit PO DAILY [facility] Last Admin: 12/21/18 10:52 Dose: 400 unit Clopidogrel Bisulfate (Plavix -) 75 mg PO DAILY [facility] Last Admin: 12/21/18 10:52 Dose: 75 mg Enoxaparin Sodium (Lovenox -) 40 mg SQ DAILY [facility] Last Admin: 12/21/18 10:51 Dose: 40 mg Hydralazine HCl (Apresoline -) 100 mg PO TID [facility] Last Admin: 12/22/18 06:21 Dose: 100 mg Melatonin (Melatonin) 5 mg PO HS PRN PRN Reason: INSOMNIA Last Admin: 12/20/18 03:59 Dose: 5 mg Metoprolol Succinate (Toprol Xl -) 300 mg PO DAILY [facility] Last Admin: 12/21/18 10:51 Dose: 300 mg Nifedipine (Procardia Xl -) 90 mg PO DAILY [facility] Last Admin: 12/21/18 10:51 Dose: 90 mg Quetiapine Fumarate (Seroquel -) 50 mg PO HS [facility] Last Admin: 12/21/18 21:20 Dose: 50 mg Quetiapine Fumarate (Seroquel -) 25 mg PO AM [facility] Last Admin: 12/22/18 06:21 Dose: 25 mg - Objective Vital Signs: Vital Signs Temperature 98.6 F 12/22/18 08:34 Pulse Rate 70 12/22/18 08:34 Respiratory Rate 20 12/22/18 08:34 Blood Pressure 136/72 12/22/18 08:34 O2 Sat by Pulse Oximetry (%) 95 12/22/18 08:33 Cardiovascular: Yes: Regular Rate and Rhythm Respiratory: Yes: Regular, CTA Bilaterally Gastrointestinal: Yes: Normal Bowel Sounds, Soft Labs: CBC, BMP 12/18/18 07:31 12/19/18 07:16 Assessment/Plan - Problems (1) Auditory hallucination Assessment/Plan: -Psych on board -Dr Bree smalls -Seroquel -repeat Head CT scan shows no significant interval change or gross acute intracranial pathology identified -Utox + MDMA possibly false positive 2/2 to Wellbutrin -patient is medically cleared and awaiting psych clearance Code(s): R44.0 - AUDITORY HALLUCINATIONS (2) CKD (chronic kidney disease), stage III Assessment/Plan: -Renal consult -BUN/Cr 20.9/1.5 -monitor renal function daily Code(s): N18.3 - CHRONIC KIDNEY DISEASE, STAGE 3 (MODERATE) (3) Hypertension Assessment/Plan: -Hydralazine, Metoprolol, Nifedipine -low Na diet Code(s): I10 - ESSENTIAL (PRIMARY) HYPERTENSION Qualifiers: Hypertension type: unspecified Qualified Code(s): I10 - Essential (primary ) hypertension (4) Visual hallucination Assessment/Plan: -Psych on board -Dr Giron consult -Seroquel -repeat Head CT scan shows no significant interval change or gross acute intracranial pathology identified -Utox + MDMA possibly false positive 2/2 to Wellbutrin Code(s): R44.1 - VISUAL HALLUCINATIONS (5) H/O: CVA (cerebrovascular accident) Assessment/Plan: -Aspirin, Lipitor, Plavix Code(s): Z86.73 - PRSNL HX OF TIA (TIA), AND CEREB INFRC W/O RESID DEFICITS
[2018-12-22] MEDS: ENOXAPARIN NA (PORCINE) 40 MG/0.4 ML DISP.SYRIN SQ SCH (10:29)
[2018-12-22] MEDS: NIFEdipine E.R. 90 MG TABLET (FP) PO SCH (10:32)
[2018-12-22] MEDS: CHOLECALCIFEROL (VIT D3) 400 UNIT (10 MCG) TABLET PO SCH (10:33)
[2018-12-22] MEDS: ASPIRIN 81 MG CHEWABLE TABLETS PO SCH (10:33)
[2018-12-22] MEDS: CLOPIDOGREL BISULFATE 75 MG TABLET (FP) PO SCH (10:33)
--- NOTE | 2018-12-22 12:47 | PN ---
Progress Note, Physician History of Present Illness: Pt seen and examined at bedside. He is awake and alert. He denies shortness of breath. - Current Medication List Current Medications: Active Medications Aspirin (Asa -) 81 mg PO DAILY [facility] Last Admin: 12/22/18 10:33 Dose: 81 mg Atorvastatin Calcium (Lipitor -) 20 mg PO HS [facility] Last Admin: 12/21/18 21:20 Dose: 20 mg Cholecalciferol (Vitamin D3 -) 400 unit PO DAILY [facility] Last Admin: 12/22/18 10:33 Dose: 400 unit Clopidogrel Bisulfate (Plavix -) 75 mg PO DAILY [facility] Last Admin: 12/22/18 10:33 Dose: 75 mg Enoxaparin Sodium (Lovenox -) 40 mg SQ DAILY [facility] Last Admin: 12/22/18 10:29 Dose: 40 mg Hydralazine HCl (Apresoline -) 100 mg PO TID [facility] Last Admin: 12/22/18 06:21 Dose: 100 mg Melatonin (Melatonin) 5 mg PO HS PRN PRN Reason: INSOMNIA Last Admin: 12/20/18 03:59 Dose: 5 mg Metoprolol Succinate (Toprol Xl -) 300 mg PO DAILY [facility] Last Admin: 12/22/18 10:30 Dose: 300 mg Nifedipine (Procardia Xl -) 90 mg PO DAILY [facility] Last Admin: 12/22/18 10:32 Dose: 90 mg Quetiapine Fumarate (Seroquel -) 50 mg PO HS [facility] Last Admin: 12/21/18 21:20 Dose: 50 mg Quetiapine Fumarate (Seroquel -) 25 mg PO AM [facility] Last Admin: 12/22/18 06:21 Dose: 25 mg - Objective Vital Signs: Vital Signs Temperature 98.6 F 12/22/18 08:34 Pulse Rate 70 12/22/18 08:34 Respiratory Rate 20 12/22/18 08:34 Blood Pressure 136/72 12/22/18 08:34 O2 Sat by Pulse Oximetry (%) 95 12/22/18 08:33 Constitutional: Yes: Calm Eyes: Yes: Conjunctiva Clear HENT: Yes: Atraumatic Neck: Yes: Supple Cardiovascular: Yes: S1, S2 Respiratory: Yes: CTA Bilaterally Gastrointestinal: Yes: Soft Genitourinary: Yes: WNL Musculoskeletal: Yes: WNL Edema: No Neurological: Yes: Oriented Psychiatric: Yes: Oriented Labs: CBC, BMP 12/18/18 07:31 12/19/18 07:16 Assessment/Plan Current Medications Generic Name Dose Route Start Last Admin Trade Name Ricky PRN Reason Stop Dose Admin Aspirin 81 mg 12/16/18 18:00 12/22/18 10:33 Asa - PO 81 mg DAILY [facility] Administration Atorvastatin Calcium 20 mg 12/16/18 22:00 12/21/18 21:20 Lipitor - PO 20 mg HS [facility] Administration Cholecalciferol 400 unit 12/17/18 10:00 12/22/18 10:33 Vitamin D3 - PO 400 unit DAILY [facility] Administration Clopidogrel Bisulfate 75 mg 12/17/18 10:00 12/22/18 10:33 Plavix - PO 75 mg DAILY [facility] Administration Enoxaparin Sodium 40 mg 12/17/18 10:00 12/22/18 10:29 Lovenox - SQ 40 mg DAILY [facility] Administration Hydralazine HCl 100 mg 12/16/18 22:00 12/22/18 06:21 Apresoline - PO 100 mg TID [facility] Administration Melatonin 5 mg 12/17/18 00:36 12/20/18 03:59 Melatonin PO 5 mg HS PRN Administration INSOMNIA Metoprolol Succinate 300 mg 12/17/18 10:00 12/22/18 10:30 Toprol Xl - PO 300 mg DAILY [facility] Administration Nifedipine 90 mg 12/17/18 10:00 12/22/18 10:32 Procardia Xl - PO 90 mg DAILY [facility] Administration Quetiapine Fumarate 50 mg 12/20/18 22:00 12/21/18 21:20 Seroquel - PO 50 mg HS [facility] Administration Quetiapine Fumarate 25 mg 12/21/18 07:00 12/22/18 06:21 Seroquel - PO 25 mg AM [facility] Administration Selected Entries 12/22/18 08:34 Blood Pressure 136/72 Impression 1. CKD 2. HTN 3. HLD 4. CVA 5. hallucinations Plan - bp is stable - check bmp - psych follow up - will need outpt follow up - mdma likely false pos
[2018-12-22] MEDS: ATORVASTATIN CA 20 MG TABLET (FP) PO SCH (21:13)
[2018-12-23] MEDS: hydrALAZINE HCL 50 MG TABLET (FP) PO SCH ×2 (06:19→13:51)
[2018-12-23] MEDS: QUEtiapine FUMARATE 25 MG TABLET (FP) PO SCH (06:19)
[2018-12-23 09:04] VITALS: BP 143/76; PULSE 64; TEMP 98
--- NOTE | 2018-12-23 09:39 | DS ---
Physical Examination Vital Signs: Vital Signs Temperature 98 F 12/23/18 09:03 Pulse Rate 64 12/23/18 09:03 Respiratory Rate 20 12/23/18 09:03 Blood Pressure 143/76 12/23/18 09:03 O2 Sat by Pulse Oximetry (%) 97 12/23/18 09:00 Findings/Remarks: FEELS BETTER DENIES SUICIDAL OR HOMICIDAL THOUGHTS Constitutional: Yes: No Distress Eyes: Yes: WNL HENT: Yes: WNL Neck: Yes: WNL Cardiovascular: Yes: Regular Rate and Rhythm Respiratory: Yes: WNL Gastrointestinal: Yes: WNL Renal/: Yes: WNL Musculoskeletal: Yes: WNL Extremities: Yes: WNL Edema: No Integumentary: Yes: WNL Wound/Incision: Yes: Clean/Dry Neurological: Yes: Pre-Existing Deficit ...Motor Strength: WNL Psychiatric: Yes: Other Labs: CBC, BMP 12/18/18 07:31 12/19/18 07:16 Discharge Summary Problems reviewed: Yes Reason For Visit: AUDITORY HALLUCINATIONS Current Active Problems Adverse drug reaction (Acute) Auditory hallucination (Acute) Flat affect (Acute) Visual hallucination (Acute) Procedures: Principal: CT SCAN Other Procedures: LABS Hospital Course: ADMITTED MONITORED BP, PSYCH EVAL AND WORKUP WITH NEPHROLOGY WORKUP COMPLETE Health Concerns: YES, NEEDS P.T. AND HOME HEALTH AID Plan of Treatment: FOLLOW UP WITH DR VILLAREAL IN 1 WEEK AND PSYCHIATRY EVAL Goals: CONTINUE MEDICATIONS AND FOLLOW OUTPATIENT - Instructions Diet, Activity, Other Instructions: LOW SALT DIET SEE DR VILLAREAL IN 1 WEEK FridayDecember 1PM Referrals: Kaur Villareal MD [Primary Care Provider] - Disposition: VNS/HOME HEALTH CARE - Home Medications Comprehensive Discharge Medication List: Ambulatory Orders Aspirin [ASA -] 81 mg PO DAILY 06/10/18 Cholecalciferol (Vitamin D3) [Vitamin D -] 125 mg PO DAILY 06/10/18 Clopidogrel Bisulfate [Plavix] 75 mg PO DAILY 06/10/18 Atorvastatin Ca [Lipitor] 20 mg PO HS tablet 12/15/18 Hydralazine HCl 100 mg PO TID #90 tablet 12/15/18 Metoprolol Succinate [Toprol XL -] 300 mg PO DAILY #90 tab.sr.24h 12/15/18 Nifedipine ER [Procardia XL -] 90 mg PO DAILY #30 tab.er.24 12/15/18 Melatonin 5 mg PO HS PRN #30 tab 12/23/18 Quetiapine Fumarate [Seroquel -] 25 mg PO AM #30 tablet 12/23/18 Prescription Drug Monitoring Program (I-STOP) results: I-STOP not reviewed
[2018-12-23] MEDS: CLOPIDOGREL BISULFATE 75 MG TABLET (FP) PO SCH (10:09)
[2018-12-23] MEDS: ASPIRIN 81 MG CHEWABLE TABLETS PO SCH (10:09)
[2018-12-23] MEDS: CHOLECALCIFEROL (VIT D3) 400 UNIT (10 MCG) TABLET PO SCH (10:09)
[2018-12-23] MEDS: ENOXAPARIN NA (PORCINE) 40 MG/0.4 ML DISP.SYRIN SQ SCH (10:09)
[2018-12-23] MEDS: NIFEdipine E.R. 90 MG TABLET (FP) PO SCH (10:10)
--- NOTE | 2018-12-23 13:59 | PN ---
Progress Note, Physician History of Present Illness: Pt seen and examined at bedside. He is awake and alert. He says he feels well. - Current Medication List Current Medications: Active Medications Aspirin (Asa -) 81 mg PO DAILY [facility] Last Admin: 12/23/18 10:09 Dose: 81 mg Atorvastatin Calcium (Lipitor -) 20 mg PO HS [facility] Last Admin: 12/22/18 21:13 Dose: 20 mg Cholecalciferol (Vitamin D3 -) 400 unit PO DAILY [facility] Last Admin: 12/23/18 10:09 Dose: 400 unit Clopidogrel Bisulfate (Plavix -) 75 mg PO DAILY [facility] Last Admin: 12/23/18 10:09 Dose: 75 mg Enoxaparin Sodium (Lovenox -) 40 mg SQ DAILY [facility] Last Admin: 12/23/18 10:09 Dose: 40 mg Hydralazine HCl (Apresoline -) 100 mg PO TID [facility] Last Admin: 12/23/18 13:51 Dose: 100 mg Melatonin (Melatonin) 5 mg PO HS PRN PRN Reason: INSOMNIA Last Admin: 12/20/18 03:59 Dose: 5 mg Metoprolol Succinate (Toprol Xl -) 300 mg PO DAILY [facility] Last Admin: 12/23/18 10:09 Dose: 300 mg Nifedipine (Procardia Xl -) 90 mg PO DAILY [facility] Last Admin: 12/23/18 10:10 Dose: 90 mg Quetiapine Fumarate (Seroquel -) 50 mg PO HS [facility] Last Admin: 12/22/18 21:12 Dose: 50 mg Quetiapine Fumarate (Seroquel -) 25 mg PO AM [facility] Last Admin: 12/23/18 06:19 Dose: 25 mg - Objective Vital Signs: Vital Signs Temperature 98 F 12/23/18 09:03 Pulse Rate 64 12/23/18 09:03 Respiratory Rate 20 12/23/18 09:03 Blood Pressure 143/76 12/23/18 09:03 O2 Sat by Pulse Oximetry (%) 97 12/23/18 09:00 Constitutional: Yes: Calm Eyes: Yes: Conjunctiva Clear HENT: Yes: Atraumatic Neck: Yes: Supple Cardiovascular: Yes: S1, S2 Respiratory: Yes: CTA Bilaterally Gastrointestinal: Yes: Soft Genitourinary: Yes: WNL Musculoskeletal: Yes: WNL Extremities: Yes: WNL Edema: No Neurological: Yes: Oriented Psychiatric: Yes: Oriented Labs: CBC, BMP 12/18/18 07:31 12/19/18 07:16 Assessment/Plan Current Medications Generic Name Dose Route Start Last Admin Trade Name Ricky PRN Reason Stop Dose Admin Aspirin 81 mg 12/16/18 18:00 12/23/18 10:09 Asa - PO 81 mg DAILY [facility] Administration Atorvastatin Calcium 20 mg 12/16/18 22:00 12/22/18 21:13 Lipitor - PO 20 mg HS [facility] Administration Cholecalciferol 400 unit 12/17/18 10:00 12/23/18 10:09 Vitamin D3 - PO 400 unit DAILY [facility] Administration Clopidogrel Bisulfate 75 mg 12/17/18 10:00 12/23/18 10:09 Plavix - PO 75 mg DAILY [facility] Administration Enoxaparin Sodium 40 mg 12/17/18 10:00 12/23/18 10:09 Lovenox - SQ 40 mg DAILY [facility] Administration Hydralazine HCl 100 mg 12/16/18 22:00 12/23/18 13:51 Apresoline - PO 100 mg TID [facility] Administration Melatonin 5 mg 12/17/18 00:36 12/20/18 03:59 Melatonin PO 5 mg HS PRN Administration INSOMNIA Metoprolol Succinate 300 mg 12/17/18 10:00 12/23/18 10:09 Toprol Xl - PO 300 mg DAILY [facility] Administration Nifedipine 90 mg 12/17/18 10:00 12/23/18 10:10 Procardia Xl - PO 90 mg DAILY [facility] Administration Quetiapine Fumarate 50 mg 12/20/18 22:00 12/22/18 21:12 Seroquel - PO 50 mg HS [facility] Administration Quetiapine Fumarate 25 mg 12/21/18 07:00 12/23/18 06:19 Seroquel - PO 25 mg AM [facility] Administration Impression 1. CKD 2. HTN 3. HLD 4. CVA 5. hallucinations Plan - bp remains stable - cont current meds at home after discharge - will see in office - reviewed meds with pt - mdma likely false pos
[2018-12-24 16:22] VITALS: BMI 28.7
== END 2018-12-23 15:30 | disposition home health service (06) | DRG 880 ==
LOC: SUPCPDRO 14:25 → JER 14:25 → JERBED 17:06 → J8W 18:07
PROVIDERS: ADMIT Family Medicine; ATTEND Family Medicine
DX: R44.0 Auditory hallucinations (principal); F15.93 Other stimulant use, unspecified with withdrawal; I12.9 Hypertensive chronic kidney disease with stage 1 through stage 4 chronic kidney disease, or unspecified chronic kidney disease; N18.3 Chronic kidney disease, stage 3 (moderate); E78.5 Hyperlipidemia, unspecified; R44.1 Visual hallucinations; Z86.73 Personal history of transient ischemic attack (TIA), and cerebral infarction without residual deficits; T50.905A Adverse effect of unspecified drugs, medicaments and biological substances, initial encounter; F32.9 Major depressive disorder, single episode, unspecified
CPT/HCPCS: 36415; 70450-TC; 80048; 80053; 80307; 81003; 82140; 83735; 84100; 85025; 93005; 93010; 99284-25